=== PATIENT | female | born 1935 | race Caucasian/White ===

== ENCOUNTER 2016-12-22 20:27 | Inpatient (IN) | payer MEDICARE, OTHER ==
[~2016-12-22] VITALS: Ht 149.9 cm; Wt 71.9 kg
[2016-12-22] MEDS ORDERED: NS 1,000 ML IV SCH ×2 (20:42→22:45)
[2016-12-22] MEDS ORDERED: MAXZTA PO (20:42)
[2016-12-22] MEDS ORDERED: LEVO88TA3 PO (20:42)
[2016-12-22 20:58] LABS: BASO % 0.7 % (0.0-1.0); EOS # 0.3 K/mm3 (0.0-0.50); EOS % 6.5 % (0.0-3.0); LARGE UNSTAINED CELL # 0.1 K/mm3 (0.0-0.4); LARGE UNSTAINED CELL % 2.5 % (0.0-4.0); LYMPH # 1.4 K/mm3 (1.5-4.5); LYMPH % 28.8 % (24.0-44.0); MEAN CORPUSCULAR HEMOGLOBIN 29.3 pg (27.0-33.0); MEAN CORPUSCULAR HGB CONC 30.9 g/dl (32.0-36.5); MEAN CORPUSCULAR VOLUME 94.9 fl (80.0-96.0); MONO # 0.5 K/mm3 (0.0-0.8); MONO % 10.3 % (0.0-5.0); NEUTROPHILS # 2.3 K/mm3 (1.8-7.7); NEUTROPHILS % 51.3 % (36.0-66.0); PLATELET COUNT, AUTOMATED 213 k/mm3 (150-450); RED CELL DISTRIBUTION WIDTH 13.3 % (11.5-14.5); WHITE BLOOD COUNT 4.6 K/mm3 (4.0-10.0)
[2016-12-22 21:14] LABS: INR 1.03
[2016-12-22 21:18] LABS: ALBUMIN 3.6 GM/DL (3.2-5.2); ALBUMIN/GLOBULIN RATIO 1.29 (1.00-1.93); ALKALINE PHOSPHATASE 82 U/L (45-117); ALT/SGPT 17 U/L (12-78); ANION GAP 10 MEQ/L (8-16); AST/SGOT 15 U/L (15-37); BILIRUBIN,DIRECT 0.1 MG/DL (0.0-0.2); BILIRUBIN,TOTAL 0.5 MG/DL (0.2-1.0); BLOOD UREA NITROGEN 47 MG/DL (7-18); CALCIUM LEVEL 7.9 MG/DL (8.8-10.2); CARBON DIOXIDE LEVEL 21 MEQ/L (21-32); CHLORIDE LEVEL 113 MEQ/L (98-107); CREATININE FOR GFR 1.68 MG/DL (0.55-1.02); GLOMERULAR FILTRATION RATE 31.1 (>32); GLUCOSE, FASTING 103 MG/DL (83-110); POTASSIUM SERUM 5.1 MEQ/L (3.5-5.1); SODIUM LEVEL 144 MEQ/L (136-145); TOTAL PROTEIN 6.4 GM/DL (6.4-8.2)
--- NOTE | 2016-12-22 21:50 | REPUSA ---
CLINICAL HISTORY: AMS TECHNIQUE: Multiple axial CT images were obtained through the brain without IV contrast material. COMMENTS: Note is made of a 3.5 x 2.6 cm right frontal intraparenchymal hemorrhage with surrounding area of vas ogenic edema. There is extension of blood into adjacent subarachnoid space. There is minimal 1-2 mm m idline shift to the left. There is normal configuration of sella turcica. No hydrocephalus is present. The ventricles are joann sly symmetrical. No abnormal calcifications are present. There is diffuse age-appropriate cerebellar and cerebral atrophy with proportionally dilated ventricl es and cortical sulci. There are bilateral periventricular and subcortical white matter hypolucencies compatible with mild c hronic microvascular disease. IMPRESSION: 1. Age-appropriate cerebellar and cerebral atrophy. 2. Mild chronic microvascular disease. 3. 3.5 x 2.6 cm right frontal intraparenchymal hemorrhage with surrounding area of vasogenic edema. T here is extension of blood into adjacent subarachnoid space. There is minimal 1-2 mm midline shift to the left. Discussed with ER - CERTIFIED NOVELL ENGINEER at 935pm EST. Thank you for your kind referral of this patient.
[2016-12-22] MEDS ORDERED: LABETALOL HCL 100 MG/20 ML VIAL IV STA (22:11)
[2016-12-22] MEDS ORDERED: levETIRAcetam INJection 500 MG in D5W MINI-BAG PLUS 100 ML IV ONE ×2 (22:45→23:00)
[2016-12-22 23:00] VITALS: BP 175/69
[2016-12-22] MEDS ORDERED: ACETAMINOPHEN TAB 650MG DOSE (2X325MG) PO SCH (23:00)
[2016-12-22 23:30] VITALS: BP_SYST 152; BP_SYST 172; BP_DIAS 56; BP_DIAS 71
[2016-12-22 23:40] LABS: MAGNESIUM LEVEL 2.3 MG/DL (1.8-2.4); PHOSPHORUS LEVEL 3.3 MG/DL (2.5-4.9)
[2016-12-22] MEDS ORDERED: hydrALAZINE INJ 20 MG/ML VIAL IV ONE (23:45)
[2016-12-23] VITALS (27 sets, daily range): BP systolic 102–178; BP diastolic 36–71
[2016-12-23] MEDS ORDERED: DEXTROSE 50% 50 ML SYRINGE IV PRN
[2016-12-23] MEDS ORDERED: GLUCOSE 4 GM CHEW TABLET PO PRN
[2016-12-23] MEDS ORDERED: GLUCAGON FOR INJ 1 MG VIAL (J1610) SC PRN
[2016-12-23] MEDS: niCARdipine IV 40 MG in APPROPRIATE DILUENT 1 EA IV SCH ×4 (00:07→23:45)
[2016-12-23] MEDS ORDERED: CALCIUM GLUCONATE 1,000 MG in D5W MINI-BAG PLUS 100 ML IV ONE ×2 (01:00→09:45)
[2016-12-23] MEDS ORDERED: ACETAMINOPHEN 650 MG SUPP PR SCH (02:00)
[2016-12-23] MEDS ORDERED: ONDANSETRON 4MG/2ML VIAL (J2405) IV PRN (02:45)
[2016-12-23] MEDS: hydrALAZINE INJ 20 MG/ML VIAL IV SCH ×5 (04:00→19:28)
[2016-12-23] MEDS: ONDANSETRON 4MG/2ML VIAL (J2405) IV SCH ×3 (04:05→19:28)
[2016-12-23 04:24] LABS: MEAN CORPUSCULAR HEMOGLOBIN 31.6 pg (27.0-33.0); MEAN CORPUSCULAR HGB CONC 33.9 g/dl (32.0-36.5); MEAN CORPUSCULAR VOLUME 93.2 fl (80.0-96.0); RED CELL DISTRIBUTION WIDTH 13.2 % (11.5-14.5); WHITE BLOOD COUNT 5.6 K/mm3 (4.0-10.0)
[2016-12-23 04:34] LABS: ALBUMIN 3.1 GM/DL (3.2-5.2); ALBUMIN/GLOBULIN RATIO 1.11 (1.00-1.93); BILIRUBIN,TOTAL 0.4 MG/DL (0.2-1.0); CALCIUM LEVEL 8.2 MG/DL (8.8-10.2); CREATININE FOR GFR 1.5 MG/DL (0.55-1.02); GLOMERULAR FILTRATION RATE 35.5 (>32); POTASSIUM SERUM 4.8 MEQ/L (3.5-5.1); TOTAL PROTEIN 5.9 GM/DL (6.4-8.2)
[2016-12-23] MEDS ORDERED: ISOVUE-370 76% 100ML VIAL (Q9967) As Ordered ONE (04:50)
[2016-12-23] MEDS: ACETAMINOPHEN 650 MG SUPP PR SCH ×5 (05:00→19:28)
[2016-12-23] MEDS: HumaLOG INSULIN (NovoLOG) PER UNIT SC SCH ×4 (06:00→18:00)
--- NOTE | 2016-12-23 06:30 | REPUSA ---
Indication: Right frontal hematoma. Technique: Axial CT angiographic images of the head. Coronal and sagittal images. 3-D post processing . Findings: Comparison is made to prior exam on 12/22/2016. Normal bilateral petrous carotid arteries. Normal right cavernous carotid artery with a normal suprac linoid bifurcation. Normal left cavernous carotid artery with a normal supraclinoid bifurcation. Normal right A1 segments of the anterior cerebral artery. Normal left A1 segments of the anterior cer ebral artery. Normal intact anterior communicating artery (ACOM). Normal bilateral A2 segments of the anterior cerebral arteries. Normal right M1 and M2 segments of the middle cerebral arteries, with a normal M1 bifurcation. Normal left M1 and M2 segments of the middle cerebral arteries, with a normal M1 bifurcation. Normal right posterior communicating artery (PCOM). Normal left posterior communicating artery (PCOM) . Normal bilateral vertebral arteries. Normal basilar artery with a normal basilar bifurcation. The vis ualized bilateral superior cerebellar (SCA) arteries are normal. Normal bilateral P1, P2 and visualized P3 segments of the posterior cerebral arteries. There is no demonstrated aneurysm of the telida of [place]. There is no major vessel occlusion or hemo dynamically significant stenosis. Again is noted right frontal acute intraparenchymal hematoma. IMPRESSION: Normal MRA of the head. Right frontal acute hematoma. Unchanged mild midline shift to the left side.
--- NOTE | 2016-12-23 06:50 | REPUSA ---
CLINICAL HISTORY: Intracranial hemorrhage. TECHNIQUE: Multiple axial brain CT scan sections were obtained from base to vertex without contrast a dministration. COMMENTS: Comparison is made to the prior exam performed on 12/22/2016. There is no change in the size of the patient describes 3.5x2.6 cm right frontal intraparenchymal hem atoma with surrounding vasogenic edema. Unchanged extension of the blood into the adjacent subarachnoid space. Mild increase in the edema surrounding the hematoma and secondary mass effect on the adjacent right l ateral ventricle. Mild increase in midline shift of the left-sided measures 3.5 mm on the current exam. IMPRESSION: Unchanged right frontal acute hematoma. Increased surrounding edema. Increased mass effect. Increased midline shift to the left side. Thank you for your kind referral of this patient.
[2016-12-23] MEDS: CARISOPRODOL 350 MG TAB PO SCH (09:00)
--- NOTE | 2016-12-23 09:06 | CCN ---
DATE: 12/22/2016 Critical care time was 1 hour. This excludes all procedures. Onelia came in to the emergency room this evening after developing acute onset of facial droop, slurred speech and left arm weakness, had witnessed acute symptoms brought to the emergency room, was found to have an intracranial hemorrhage. Was evaluated by neurosurgery, felt that there is a possibility of aneurysm versus tumor as this was likely a spontaneous bleed. She is not on anticoagulation. She is awake and can talk. She has delayed speech, but can answer yes or no to most questions. She states that she has a history of renal impairment and has been told not to take any nonsteroidals. She has a history of high blood pressure, lower extremity edema and hypothyroidism. I am not able to ascertain who her primary care is. She is a lifetime nonsmoker without any cardiac disease that she is aware of. Her arrival blood pressure is critically high, initially at 190. With a dose of 20 of labetalol in the emergency room (ER), her blood pressure was 118 and her pulse was in the 50s. On arrival to the intensive care unit (ICU) when I first met her, her blood pressure is now high 160s low 170s and heart rate remains low in the 60 range. I have therefore elected to start nicardipine and I placed an arterial line at bedside. The patient states initially she had a headache. She has no headache currently. There was no witnessed seizure activity. PHYSICAL EXAMINATION: Temperature is 97.3, pulse of 60, respiratory rate is 18. Oxygen saturation is 96% on room air. Most recent blood pressure is 172/89. The left radial arterial line correlates well with the blood pressure on the monitor. General: Awake, alert, answers slowly, but is able to answer questions. HEENT: Pupils are 3 mm bilaterally, but reactive. Sclerae are clear. Mucous membranes are moist. She has a left facial droop. Neck is supple. No tracheal deviation or mass. Lymphatics: No cervical, supraclavicular axillary adenopathy. Cardiac: Regular S1, S2. There is occasional sinus arrhythmia. No elevated JVP. No peripheral edema. Pulmonary: Clear to auscultation. No rales, rhonchi or wheezes. No dullness to percussion. Abdomen: Soft, nontender, nondistended. No hepatosplenomegaly, masses or hernia. Extremities: She is unable to move her left arm, it is contracted to her side. She is able to move her left toes. Right leg, right arm has normal movement. She has a left facial droop. No evidence of tremor. Significant myoclonus. Musculoskeletal: Muscle tone is normal for stated age. No evidence of fracture or joint effusion. Skin: No rash, jaundice or bruising. LABORATORY EVALUATION: Shows sodium 144, potassium 5.1, chloride 113, bicarbonate of 21, BUN of 47, creatinine 1.68. White blood cell count is 4.6 with a hemoglobin of 10.8, hematocrit of 35.0, platelet count of 213, white blood cell count is 4.6. Fasting blood glucose is 103, total bilirubin is 0.5, normal LFTs. Calcium is minimally reduced at 7.9. Phosphorus and magnesium are normal. TSH is 1.48. Chest x-ray shows no evidence of infiltrate. No evidence of rib fracture or pneumothorax. CT head shows a 3.5 x 2.6 cm right frontal intraparenchymal hemorrhage, very round. There is some vasogenic edema, very minimal midline shift 1-2 mm. IMPRESSION: 1. Severe hypertension in the face of intracranial intraparenchymal hemorrhage. Tumor versus aneurysm remain in the differential. CT angiogram to be performed in the morning. There is a risk of progression. She will be monitored closely in the intensive care unit with neurologic checks. I have placed her nicardipine drip with as needed hydralazine. Goal of blood pressure of 140-150. 2. Renal insufficiency. I presume this is at baseline; however, I do not have prior records. Will monitor for adequate urine output. 3. Anemia, normocytic in nature. Will continue to monitor. 4. Deep venous thrombosis (DVT) prophylaxis with thromboembolism deterrent stockings (TEDS) and [place]. 5. Gastrointestinal (GI) prophylaxis with Protonix. 6. Seizure prophylaxis with Keppra. 7. Hypothyroidism. Replace levothyroxine intravenously (IV) as she is nothing by mouth currently because of the intracranial hemorrhage. 8. Will attempt normal glycemia. Will check fingersticks blood glucose every eight. Upon review of her records, she has very little records here, but she did show up to a clinic after recent amoxicillin and having a rash, therefore I placed this as a potential allergen in her medical history. As of this moment, the patient remains FULL CODE. She does have a 35-52% risk of mortality given her underlying diagnosis. Prognosis remains very guarded, especially if the hemorrhage progresses.
--- NOTE | 2016-12-23 09:06 | RO ---
DATE OF PROCEDURE: 12/22/2016 PREOPERATIVE DIAGNOSIS: Severe hypertension in the face of an intracranial hemorrhage. POSTOPERATIVE DIAGNOSIS: Severe hypertension in the face of an intracranial hemorrhage. PROCEDURE: Left radial arterial line. SURGEON: Dr. Reyes Torres FOLD SKIVER: None ANESTHESIA: 5 mL of 1% lidocaine without epinephrine. The procedure was deemed part of the patient's intensive care unit (ICU) care and urgent. The patient gave verbal consent at bedside. A time-out was performed with two patient identifiers, identifying correct site and correct procedure. Patricio's test was performed ensuring adequate blood flow. The left radial artery was then cleaned with chlorhexidine. A sterile drape was then placed over the site. 1% lidocaine was then instilled subcutaneously. The Arrow needle was then placed into the artery with return of pulsatile blood flow nearly immediately. The wire was advanced through the needle, the catheter was fed over the wire and the needle was removed. There were no observed complications. The arterial line was attached to the monitor with good wave form and good dicrotic notch. This was sutured in place and a sterile impregnated dressing was placed over the site. CHELITA
--- NOTE | 2016-12-23 09:06 | REP ---
Clinical: chest pain. Altered mental status. Comparison: none. Findings: The mediastinum and cardiac silhouette are stable and within normal limits for portable technique. The lung bosch are clear without acute consolidation, effusion, or pneumothorax. Skeletal structures are intact. Impression: No acute cardiopulmonary process appreciated. Signed by Tariq Arreola MD 12/23/2016 08:01 A
--- NOTE | 2016-12-23 10:21 | ECGEPIP ---
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
[2016-12-23] MEDS: LEVOTHYROXINE 100 MCG (0.1MG) VIAL IV SCH (10:33)
[2016-12-23] MEDS: PANTOPRAZOLE 40MG INJ (PROTONIX) (C9113) IV SCH (10:36)
[2016-12-23] MEDS: levETIRAcetam INJection 500 MG in D5W MINI-BAG PLUS 100 ML IV SCH (13:08)
[2016-12-24] VITALS (24 sets, daily range): BP systolic 107–168; BP diastolic 51–72
[2016-12-24] MEDS: levETIRAcetam INJection 500 MG in D5W MINI-BAG PLUS 100 ML IV SCH ×3 (00:04→23:53)
[2016-12-24] MEDS: ACETAMINOPHEN 650 MG SUPP PR SCH ×6 (00:06→19:25)
[2016-12-24] MEDS: MORPHINE 2 MG/ML 1ML SYRINGE IV PRN ×2 (02:25→20:25)
[2016-12-24] MEDS: hydrALAZINE INJ 20 MG/ML VIAL IV SCH ×7 (04:00→23:53)
[2016-12-24] MEDS: ONDANSETRON 4MG/2ML VIAL (J2405) IV SCH ×3 (04:01→19:24)
[2016-12-24 04:32] LABS: MEAN CORPUSCULAR HEMOGLOBIN 30.2 pg (27.0-33.0); MEAN CORPUSCULAR HGB CONC 31.7 g/dl (32.0-36.5); MEAN CORPUSCULAR VOLUME 95.3 fl (80.0-96.0); RED CELL DISTRIBUTION WIDTH 13.4 % (11.5-14.5)
[2016-12-24 04:51] LABS: ALBUMIN/GLOBULIN RATIO 1.07 (1.00-1.93); BILIRUBIN,TOTAL 0.8 MG/DL (0.2-1.0); CALCIUM LEVEL 8.8 MG/DL (8.8-10.2); CREATININE FOR GFR 1.43 MG/DL (0.55-1.02); GLOMERULAR FILTRATION RATE 37.5 (>32); POTASSIUM SERUM 4.8 MEQ/L (3.5-5.1); TOTAL PROTEIN 5.8 GM/DL (6.4-8.2)
[2016-12-24] MEDS: HumaLOG INSULIN (NovoLOG) PER UNIT SC SCH ×5 (05:48→23:54)
[2016-12-24] MEDS: niCARdipine IV 40 MG in APPROPRIATE DILUENT 1 EA IV SCH (07:45)
[2016-12-24] MEDS: PANTOPRAZOLE 40MG INJ (PROTONIX) (C9113) IV SCH (08:21)
[2016-12-24] MEDS: LEVOTHYROXINE 100 MCG (0.1MG) VIAL IV SCH (08:21)
[2016-12-24] MEDS: CARISOPRODOL 350 MG TAB PO SCH (08:45)
[2016-12-24] MEDS: ACETAMINOPHEN TAB 650MG DOSE (2X325MG) PO SCH (23:55)
[2016-12-25] VITALS (23 sets, daily range): BP systolic 98–157; BP diastolic 47–70
[2016-12-25] MEDS: hydrALAZINE INJ 20 MG/ML VIAL IV SCH ×6 (04:00→23:35)
[2016-12-25] MEDS: ACETAMINOPHEN TAB 650MG DOSE (2X325MG) PO SCH ×6 (04:06→23:33)
[2016-12-25] MEDS: ONDANSETRON 4MG/2ML VIAL (J2405) IV SCH ×3 (04:06→19:51)
[2016-12-25 05:00] LABS: MEAN CORPUSCULAR HEMOGLOBIN 31.4 pg (27.0-33.0); MEAN CORPUSCULAR HGB CONC 33.1 g/dl (32.0-36.5); MEAN CORPUSCULAR VOLUME 94.8 fl (80.0-96.0); RED CELL DISTRIBUTION WIDTH 13.2 % (11.5-14.5); WHITE BLOOD COUNT 5.9 K/mm3 (4.0-10.0)
[2016-12-25 05:47] LABS: ALBUMIN/GLOBULIN RATIO 0.97 (1.00-1.93); BILIRUBIN,TOTAL 0.7 MG/DL (0.2-1.0); CALCIUM LEVEL 8.4 MG/DL (8.8-10.2); CREATININE FOR GFR 1.56 MG/DL (0.55-1.02); GLOMERULAR FILTRATION RATE 33.9 (>32); POTASSIUM SERUM 4.5 MEQ/L (3.5-5.1); TOTAL PROTEIN 6.1 GM/DL (6.4-8.2)
[2016-12-25] MEDS: HumaLOG INSULIN (NovoLOG) PER UNIT SC SCH ×4 (05:56→23:34)
[2016-12-25] MEDS: LEVOTHYROXINE 88MCG TABLET (0.088 MG) PO SCH (05:57)
[2016-12-25] MEDS ORDERED: LEVOTHYROXINE 75MCG TABLET (0.075MG) PO SCH (06:00)
[2016-12-25 09:34] LABS: RETIC HEMOGLOBIN CONTENT CHr 29.5 PG (24-36); RETICULOCYTE % 1.7 % (0.5-1.5)
[2016-12-25 09:47] LABS: PERCENT SATURATION 11.2 % (13.2-45.0)
[2016-12-25] MEDS: PANTOPRAZOLE 40MG INJ (PROTONIX) (C9113) IV SCH (09:56)
[2016-12-25] MEDS: CARISOPRODOL 350 MG TAB PO SCH (10:29)
[2016-12-25] MEDS ORDERED: traMADol 50 MG TAB PO PRN ×2 (10:30)
[2016-12-25] MEDS: levETIRAcetam INJection 500 MG in D5W MINI-BAG PLUS 100 ML IV SCH ×2 (12:18→23:36)
--- NOTE | 2016-12-25 12:37 | IPNPDOC ---
Date Seen The patient was seen on 12/25/16. Progress Note In brief: This is an 81-year-old female who presented with left upper extremity weakness slurred speech found to have intracranial hemorrhage has been of neurosurgery service followed by intensive care will now be followed by the hospitalist service with consult SUBJECTIVE: Complains of weakness difficulty with opening her eyes which is not new. As well as persistent continued headache. She tells me that she is able to wiggle her toes and move her left lower extremity better than previous days she is not able to move her left upper extremity. OBJECTIVE PHYSICAL EXAMINATION: VITAL SIGNS: Please see below. GENERAL: Frail elderly female sitting up in bed she has dry mucous membranes she speaks slowly and answers questions appropriately HEENT: Pupils are closely pinpoint bilaterally and minimally reactive she speaks slowly CARDIOVASCULAR: S1-S2. RESPIRATORY: Clear. ABDOMINAL: Bowel sounds present abdomen soft EXTREMITIES: Process of left upper extremity spontaneously moves right upper extremity right lower extremity as well as left lower extremity to painful stimuli. No edema NEUROLOGICAL: No change from previously days documented exams LABORATORY DATA: Please see below. MICROBIOLOGY: Please see below. IMAGING: CT angiography of the head from 917:Normal MRA of the head. Right frontal acute hematoma. Unchanged mild midline shift to the left side CT head from 917:Unchanged right frontal acute hematoma. Increased surrounding edema. Increased mass effect. Increased midline shift to the left side. Thank you for your kind referral of this patient. Echocardiogram: Ordered. 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 PROBLEMS: 1. Hemorrhagic CVA:. He related to severe hypertension, at this time I have spoken with neurosurgery R goal systolic blood pressure is less than 150 she is currently on metoprolol and when necessary hydralazine to achieve these goals I spoke with nursing staff this morning regarding this as well. Today is day 3 of 54 bed rest as per neurosurgery. We'll check an echocardiogram carotid duplex TSH hemoglobin A1c and continue to monitor on telemetry. Pain control and management of intracranial hemorrhage as per neurosurgery. The patient is on seizure prophylaxis. The patient did have a swallow eval yesterday and she was cleared for pured however nursing staff and the neurosurgery of concerns regarding this and as such an NG tube was placed. We'll place nutritional consult for tube feed recommendations would reattempt a swallow eval 48 hours and should the patient be unable to tolerate at that point family and patient would have to consider potential PEG tube placement. 2. Chronic kidney disease: Is stable and at baseline continue to monitor. 3. Anemia: Stable we'll check iron studies and anemia workup 4. Hypothyroidism: Continue with Synthroid 3. Stress ulcer prophylaxis: IV Protonix. 5. Hypertension: Patient is normally on triamterene and hydrochlorothiazide combination pill and is currently on hold instead she is on a beta jm and hydralazine when necessary DISPOSITION: I suspect the patient will require long-term placement. VS, I&O, 24H, Fishbone Vital Signs/I&O Vital Signs Date Time Temp Pulse Resp B/P (MAP) Pulse Ox O2 Delivery O2 Flow Rate FiO2 12/25/16 11:00 74 18 156/67 (96) 95 Room Air 12/25/16 10:00 99.0 I&O- Last 24 Hours up to 6 AM 12/25/16 06:00 Intake Total 255 ml Output Total 725 ml Balance -470 ml Laboratory Data 24H LABS Laboratory Tests 2 12/24/16 17:30: Bedside Glucose (Misc Panel) 90 12/24/16 23:34: Bedside Glucose (Misc Panel) 95 12/25/16 04:52: Absolute Reticulocyte Count 59, Percent Reticulocyte Count 1.70H, Reticulocyte Hgb Content (CHr) 29.5, Anion Gap 9, Glomerular Filtration Rate 33.9, Estimated Mean Plasma Glucose 111H, Hemoglobin A1c 5.5, Blood Urea Nitrogen 36H, Creatinine 1.56H, Sodium Level 146H, Potassium Level 4.5, Chloride Level 115H, Carbon Dioxide Level 22, Calcium Level 8.4L, Aspartate Amino Transf (AST/SGOT) 13L, Alanine Aminotransferase (ALT/SGPT) 17, Alkaline Phosphatase 69, Total Bilirubin 0.7, Total Protein 6.1L, Albumin 3.0L, Iron Level 29L, Total Iron Binding Capacity 260, Transferrin % Saturation 11.2L, Ferritin 237, Albumin/ Globulin Ratio 0.97L CBC/BMP Laboratory Tests 12/25/16 04:52 Red Blood Count 3.32 L, Mean Corpuscular Volume 94.8, Mean Corpuscular Hemoglobin 31.4, Mean Corpuscular Hemoglobin Concent 33.1, Red Cell Distribution Width 13.2, Calcium Level 8.4 L, Aspartate Amino Transf (AST/SGOT) 13 L, Alanine Aminotransferase (ALT/SGPT) 17, Alkaline Phosphatase 69, Total Bilirubin 0.7, Total Protein 6.1 L, Albumin 3.0 L Microbiology Microbiology 12/23/16 Urine Culture - Final, Complete JARON MEDRANO MD Dec 25, 2016 12:37
[2016-12-26] VITALS (26 sets, daily range): BP systolic 112–173; BP diastolic 50–98
--- NOTE | 2016-12-26 00:39 | REP ---
Follow-up CT of the brain without IV contrast: Comparisons are 12/22/2078 12/23/2016. The right frontal lobe hematoma is again identified today measuring 3.6 x 2.6 cm, not significantly changed. There is edema surrounding the hematoma as previously. Small volume of hemorrhage is again noted in the subarachnoid space adjacent to the hematoma, unchanged. There is effacement of the right lateral ventricle and there is right to left midline shift of approximately 3.88 mm. This has increased from the 1-2 mm previously. The ventricles are otherwise normal size. No other hemorrhages are identified. There are no other interval changes Signed by Chris Huggins MD 12/25/2016 05:07 P
[2016-12-26] MEDS: ONDANSETRON 4MG/2ML VIAL (J2405) IV SCH ×3 (03:48→19:39)
[2016-12-26] MEDS: hydrALAZINE INJ 20 MG/ML VIAL IV SCH ×5 (03:48→19:41)
[2016-12-26] MEDS: ACETAMINOPHEN TAB 650MG DOSE (2X325MG) PO SCH ×5 (03:48→19:41)
[2016-12-26 05:13] LABS: MEAN CORPUSCULAR HEMOGLOBIN 31.2 pg (27.0-33.0); MEAN CORPUSCULAR VOLUME 94.5 fl (80.0-96.0); RED CELL DISTRIBUTION WIDTH 13.2 % (11.5-14.5); WHITE BLOOD COUNT 6.9 K/mm3 (4.0-10.0)
[2016-12-26 05:27] LABS: ALBUMIN 2.8 GM/DL (3.2-5.2); ALBUMIN/GLOBULIN RATIO 0.9 (1.00-1.93); BILIRUBIN,TOTAL 0.4 MG/DL (0.2-1.0); CALCIUM LEVEL 7.8 MG/DL (8.8-10.2); CREATININE FOR GFR 1.76 MG/DL (0.55-1.02); GLOMERULAR FILTRATION RATE 29.5 (>32); POTASSIUM SERUM 4.4 MEQ/L (3.5-5.1); TOTAL PROTEIN 5.9 GM/DL (6.4-8.2)
[2016-12-26] MEDS: LEVOTHYROXINE 88MCG TABLET (0.088 MG) PO SCH (06:01)
[2016-12-26] MEDS: HumaLOG INSULIN (NovoLOG) PER UNIT SC SCH ×2 (06:02→12:19)
[2016-12-26] MEDS: PANTOPRAZOLE 40MG INJ (PROTONIX) (C9113) IV SCH (08:27)
[2016-12-26] MEDS: CARISOPRODOL 350 MG TAB PO SCH (09:00)
--- NOTE | 2016-12-26 12:07 | IPNPDOC ---
Date Seen The patient was seen on 12/26/16. Progress Note Yesterday afternoon the patient became more lethargic and was unable to eat and neurosurgery placed tube for feeding. Given the decline, status post I did have concern ordered a stat CT scan of the head which revealed some worsening of midline shift. NSGY did see the patient at that time and consent for possible surgery SUBJECTIVE: The patient is lethargic but arousable to verbal and painful stimuli she answers questions but not as much as she did in previous days she knows the year she knows the president but she does not know where she is she believes she is at home. She denies any complaints of pain at this time OBJECTIVE PHYSICAL EXAMINATION: VITAL SIGNS: Please see below. GENERAL: Frail elderly female sitting up in bed she has dry mucous membranes she speaks very little compared to previous day HEENT: Pupils are close to pinpoint bilaterally and minimally reactive to light , she has an NG tube in place CARDIOVASCULAR: S1-S2. RESPIRATORY: Clear. ABDOMINAL: Bowel sounds present abdomen soft EXTREMITIES: Process of left upper extremity spontaneously moves right upper extremity right lower extremity as well as left lower extremity to painful stimuli. No edema NEUROLOGICAL: No change from previously days documented exams LABORATORY DATA: Please see below. MICROBIOLOGY: Please see below. IMAGING: CT scan of the head from 12/25: The right frontal lobe hematoma is again identified today measuring 3.6 x 2.6 cm, not significantly changed. There is edema surrounding the hematoma as previously. Small volume of hemorrhage is again noted in the subarachnoid space adjacent to the hematoma, unchanged. There is effacement of the right lateral ventricle and there is right to left midline shift of approximately 3.88 mm. This has increased from the 1-[address] angiography of the head from :Normal MRA of the head. Right frontal acute hematoma. Unchanged mild midline shift to the left side CT head from :Unchanged right frontal acute hematoma. Increased surrounding edema. Increased mass effect. Increased midline shift to the left side. Thank you for your kind referral of this patient. Echocardiogram: Ordered. 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 PROBLEMS: 1. Hemorrhagic CVA: Believed to be related to severe hypertension, goal systolic blood pressure is less than 150 she is currently on metoprolol and when necessary hydralazine to achieve these goals I spoke with nursing staff this morning regarding this as well. Today is day 4 of 5 bed rest as per neurosurgery. We'll check an echocardiogram, carotid duplex and continue to monitor on telemetry. Pain control and management of intracranial hemorrhage as per neurosurgery. The patient is on seizure prophylaxis. I did discuss with neurosurgery they do not feel that Decadron would play any role in improving her cerebral edema in the setting of acute bleed The patient did have a swallow eval and she was cleared for pured however nursing staff and the neurosurgery of concerns regarding this and as such an NG tube was placed. We will monitor closely today should she really tolerated it would recommend discontinuing allowing her to eat should she improve 2. Chronic kidney disease: Is stable and at baseline continue to monitor. 3. Anemia: Stable we'll check iron studies and anemia workup possibly some iron deficiency anemia when she is taking better by mouth we'll start supplementation 4. Hypothyroidism: Continue with Synthroid 3. Stress ulcer prophylaxis: IV Protonix. 5. Hypertension: Patient is normally on triamterene and hydrochlorothiazide combination pill and is currently on hold instead she is on a beta jm and hydralazine when necessary DISPOSITION: I suspect the patient will require at least subacute rehabilitation VS, I&O, [facility] Vital Signs/I&O Vital Signs Date Time Temp Pulse Resp B/P (MAP) Pulse Ox O2 Delivery O2 Flow Rate FiO2 12/26/16 10:00 64 16 127/58 (81) 94 Room Air 12/26/16 08:00 98.1 I&O- Last 24 Hours up to 6 AM 12/27/16 06:00 Intake Total 430 ml Output Total 125 ml Balance 305 ml Laboratory Data 24H LABS Laboratory Tests 2 12/25/16 12:10: Bedside Glucose (Misc Panel) 102 12/25/16 17:58: Bedside Glucose (Misc Panel) 160H 12/25/16 23:18: Bedside Glucose (Misc Panel) 164H 12/26/16 04:56: Anion Gap 8, Glomerular Filtration Rate 29.5L, Blood Urea Nitrogen 52H, Creatinine 1.76H, Sodium Level 143, Potassium Level 4.4, Chloride Level 111H, Carbon Dioxide Level 24, Calcium Level 7.8L, Aspartate Amino Transf (AST/SGOT) 18, Alanine Aminotransferase (ALT/SGPT) 18, Alkaline Phosphatase 68, Total Bilirubin 0.4, Total Protein 5.9L, Albumin 2.8L, Albumin/Globulin Ratio 0.90L 12/26/16 05:50: Bedside Glucose (Misc Panel) 171H CBC/BMP Laboratory Tests 12/26/16 04:56 Red Blood Count 3.26 L, Mean Corpuscular Volume 94.5, Mean Corpuscular Hemoglobin 31.2, Mean Corpuscular Hemoglobin Concent 33.0, Red Cell Distribution Width 13.2, Calcium Level 7.8 L, Aspartate Amino Transf (AST/SGOT) 18, Alanine Aminotransferase (ALT/SGPT) 18, Alkaline Phosphatase 68, Total Bilirubin 0.4, Total Protein 5.9 L, Albumin 2.8 L Microbiology Microbiology 12/23/16 Urine Culture - Final, Complete JARON MEDRANO MD Dec 26, 2016 12:07
[2016-12-26] MEDS: levETIRAcetam INJection 500 MG in D5W MINI-BAG PLUS 100 ML IV SCH (12:20)
[2016-12-26] MEDS: DOCUSATE SODIUM 100 MG CAP PO SCH (20:37)
--- NOTE | 2016-12-26 21:24 | ECHO ---
DATE OF PROCEDURE: 12/26/2016 REFERRING PHYSICIAN: Indiana Amin MD INDICATION: Acute stroke. HEIGHT: 59 inches WEIGHT: 157 pounds. 2D MEASUREMENTS: Aortic root: 2.8 cm Proximal ascending aorta: 2.5 cm Left atrium: 3.5 cm Ventricular septum: 1.18 cm Posterior wall: 1.13 cm Left ventricle diastole: 4.0 cm Inferior vena cava: 2.0 cm DOPPLER MEASUREMENTS: Aortic valve velocity: 209 cm/s LVOT velocity: 195 cm/s LVOT VTI: 36.3 cm Mitral E velocity: 130 cm/s Mitral A velocity: 145 cm/s Mitral deceleration time: 239 ms Mild tricuspid regurgitation. Estimated right ventricle systolic pressure 51 mmHg assuming a right atrial pressure of 10 mmHg. Pulmonary artery systolic pressure 47 mmHg by pulmonary acceleration time method. MITRAL ANNULAR TISSUE DOPPLER: E prime lateral: 9.5 cm/s E prime septal: 6.0 cm/s DESCRIPTION: Rhythm was sinus. This is a moderately technically difficult echocardiogram. No pericardial effusion. This is a 2D, M-mode, color flow Doppler and pulse wave Doppler examination that included mitral annular tissue Doppler. CONCLUSIONS: 1. No definite cardiac source of systemic embolism identified. 2. Normal left ventricle internal dimensions and wall thickness. No regional LV wall motion abnormalities. Hyperdynamic left ventricle (LV) systolic function. Left ventricular ejection fraction (LVEF) of 75% by visual estimate. Normal LV diastolic function for age. 3. Suggestive of moderate elevation of estimated right ventricle systolic pressure and pulmonary artery systolic pressure. Mild tricuspid regurgitation. 4. Moderately technically difficult echocardiogram. [facility]
[2016-12-27] VITALS (24 sets, daily range): BP systolic 98–152; BP diastolic 56–96
[2016-12-27] MEDS: levETIRAcetam INJection 500 MG in D5W MINI-BAG PLUS 100 ML IV SCH ×3 (00:02→23:33)
[2016-12-27] MEDS: ACETAMINOPHEN TAB 650MG DOSE (2X325MG) PO SCH ×7 (00:03→23:33)
[2016-12-27] MEDS: hydrALAZINE INJ 20 MG/ML VIAL IV SCH ×7 (04:00→23:33)
[2016-12-27 05:00] LABS: MEAN CORPUSCULAR HEMOGLOBIN 31.3 pg (27.0-33.0); MEAN CORPUSCULAR HGB CONC 33.1 g/dl (32.0-36.5); MEAN CORPUSCULAR VOLUME 94.5 fl (80.0-96.0); RED CELL DISTRIBUTION WIDTH 13.1 % (11.5-14.5)
[2016-12-27] MEDS: ONDANSETRON 4MG/2ML VIAL (J2405) IV SCH ×3 (05:01→19:35)
[2016-12-27] MEDS: LEVOTHYROXINE 88MCG TABLET (0.088 MG) PO SCH (05:01)
[2016-12-27 05:33] LABS: ALBUMIN 2.7 GM/DL (3.2-5.2); ALBUMIN/GLOBULIN RATIO 0.87 (1.00-1.93); BILIRUBIN,TOTAL 0.6 MG/DL (0.2-1.0); CALCIUM LEVEL 8.7 MG/DL (8.8-10.2); CREATININE FOR GFR 1.5 MG/DL (0.55-1.02); GLOMERULAR FILTRATION RATE 35.5 (>32); POTASSIUM SERUM 4.5 MEQ/L (3.5-5.1); TOTAL PROTEIN 5.8 GM/DL (6.4-8.2)
[2016-12-27] MEDS: DOCUSATE SODIUM 100 MG CAP PO SCH ×2 (09:00→21:23)
[2016-12-27] MEDS: CARISOPRODOL 350 MG TAB PO SCH (09:00)
[2016-12-27] MEDS: PANTOPRAZOLE 40MG INJ (PROTONIX) (C9113) IV SCH (09:14)
--- NOTE | 2016-12-27 12:45 | IPNPDOC ---
Date Seen The patient was seen on 12/27/16. Progress Note SUBJECTIVE: The patient is lethargic but easily arousable to verbal stimuli she answers questions and is able to open her eyes this AM. SHe is fully oreinted at this time. She denies any complaints of pain or headache at this time OBJECTIVE PHYSICAL EXAMINATION: VITAL SIGNS: Please see below. GENERAL: Frail elderly female sitting up in bed she has dry mucous membranes she speaks slowly with prominent Lt sided facial droop HEENT: Pupils are close to pinpoint bilaterally and minimally reactive to light , left-sided facial droop CARDIOVASCULAR: S1-S2. RESPIRATORY: Clear. ABDOMINAL: Bowel sounds present abdomen soft EXTREMITIES: Paralysis of left upper extremity spontaneously moves right upper extremity right lower extremity as well as left lower extremity to painful stimuli. No edema NEUROLOGICAL: No change from previously days documented exams LABORATORY DATA: Please see below. MICROBIOLOGY: Please see below. IMAGING: CT scan of the head from 12/25: The right frontal lobe hematoma is again identified today measuring 3.6 x 2.6 cm, not significantly changed. There is edema surrounding the hematoma as previously. Small volume of hemorrhage is again noted in the subarachnoid space adjacent to the hematoma, unchanged. There is effacement of the right lateral ventricle and there is right to left midline shift of approximately 3.88 mm. This has increased from the 1-[address] angiography of the head from :Normal MRA of the head. Right frontal acute hematoma. Unchanged mild midline shift to the left side CT head from :Unchanged right frontal acute hematoma. Increased surrounding edema. Increased mass effect. Increased midline shift to the left side. Thank you for your kind referral of this patient. Echocardiogram: 1. No definite cardiac source of systemic embolism identified. 2. Normal left ventricle internal dimensions and wall thickness. No regional LV wall motion abnormalities. Hyperdynamic left ventricle (LV) systolic function. Left ventricular ejection fraction (LVEF) of 75% by visual estimate. Normal LV diastolic function for age. 3. Suggestive of moderate elevation of estimated right ventricle systolic pressure and pulmonary artery systolic pressure. Mild tricuspid regurgitation. 4. Moderately technically difficult echocardiogram. 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 PROBLEMS: 1. 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 Today is day 5 of 5 bed rest as per neurosurgery. Pain control and management of intracranial hemorrhage as per neurosurgery. The patient is on seizure prophylaxis. Yesterday evening the patient's NG tube was removed her tube feeds have been stopped she appears to be tolerated. Diet quite well at this time and is showing signs of improvement. 2. Chronic kidney disease: Is stable and at baseline continue to monitor. 3. Anemia: Stable we'll check iron studies and anemia workup possibly some iron deficiency anemia when she is taking better by mouth we'll start supplementation 4. Hypothyroidism: Continue with Synthroid 3. Stress ulcer prophylaxis: IV Protonix. 5. Hypertension: Patient is normally on triamterene and hydrochlorothiazide combination pill and is currently on hold instead she is on a beta jm and hydralazine when necessary DISPOSITION: I suspect the patient will require at least subacute rehabilitation will have her work with physical therapy tomorrow potentially disposition to rehabilitation facility Saturday VS, I&O, 24H, [facility] Vital Signs/I&O Vital Signs Date Time Temp Pulse Resp B/P (MAP) Pulse Ox O2 Delivery O2 Flow Rate FiO2 12/27/16 12:00 144/67 12/27/16 10:00 73 18 97 12/27/16 08:00 98.2 12/27/16 06:00 Room Air 12/27/16 03:00 2.0 I&O- Last 24 Hours up to 6 AM 12/28/16 06:00 Intake Total 0 ml Output Total 60 ml Balance -60 ml Laboratory Data 24H LABS Laboratory Tests 2 12/27/16 04:51: Anion Gap 8, Glomerular Filtration Rate 35.5, Blood Urea Nitrogen 49H, Creatinine 1.50H, Sodium Level 145, Potassium Level 4.5, Chloride Level 112H, Carbon Dioxide Level 25, Calcium Level 8.7L, Aspartate Amino Transf (AST/SGOT) 14L, Alanine Aminotransferase (ALT/SGPT) 17, Alkaline Phosphatase 68, Total Bilirubin 0.6, Total Protein 5.8L, Albumin 2.7L, Albumin/Globulin Ratio 0.87L CBC/BMP Laboratory Tests 12/27/16 04:51 Red Blood Count 3.30 L, Mean Corpuscular Volume 94.5, Mean Corpuscular Hemoglobin 31.3, Mean Corpuscular Hemoglobin Concent 33.1, Red Cell Distribution Width 13.1, Calcium Level 8.7 L, Aspartate Amino Transf (AST/SGOT) 14 L, Alanine Aminotransferase (ALT/SGPT) 17, Alkaline Phosphatase 68, Total Bilirubin 0.6, Total Protein 5.8 L, Albumin 2.7 L Microbiology Microbiology 12/23/16 Urine Culture - Final, Complete JARON MEDRANO MD Dec 27, 2016 12:45
[2016-12-28] VITALS (24 sets, daily range): BP systolic 87–154; BP diastolic 41–67
[2016-12-28] MEDS: hydrALAZINE INJ 20 MG/ML VIAL IV SCH ×2 (04:00→09:15)
[2016-12-28] MEDS: ACETAMINOPHEN TAB 650MG DOSE (2X325MG) PO SCH ×5 (04:10→20:28)
[2016-12-28] MEDS: ONDANSETRON 4MG/2ML VIAL (J2405) IV SCH (04:10)
[2016-12-28 05:18] LABS: MEAN CORPUSCULAR VOLUME 93.9 fl (80.0-96.0); WHITE BLOOD COUNT 5.3 K/mm3 (4.0-10.0)
[2016-12-28 05:35] LABS: ALBUMIN 2.7 GM/DL (3.2-5.2); ALBUMIN/GLOBULIN RATIO 0.87 (1.00-1.93); BILIRUBIN,TOTAL 0.6 MG/DL (0.2-1.0); CALCIUM LEVEL 8.4 MG/DL (8.8-10.2); CREATININE FOR GFR 1.62 MG/DL (0.55-1.02); GLOMERULAR FILTRATION RATE 32.5 (>32); POTASSIUM SERUM 4.1 MEQ/L (3.5-5.1); TOTAL PROTEIN 5.8 GM/DL (6.4-8.2)
[2016-12-28] MEDS: LEVOTHYROXINE 88MCG TABLET (0.088 MG) PO SCH (05:55)
[2016-12-28] MEDS: PANTOPRAZOLE 40MG INJ (PROTONIX) (C9113) IV SCH (09:14)
[2016-12-28] MEDS: DOCUSATE SODIUM 100 MG CAP PO SCH ×2 (09:20→20:28)
[2016-12-28] MEDS ORDERED: CARISOPRODOL 350 MG TAB PO PRN (09:30)
[2016-12-28] MEDS ORDERED: ONDANSETRON 4MG/2ML VIAL (J2405) IV PRN (09:30)
[2016-12-28] MEDS: **hydrALAZINE** 10 MG TAB PO SCH ×2 (12:00→20:24)
--- NOTE | 2016-12-28 12:16 | IPNPDOC ---
Date Seen The patient was seen on 12/28/16. Progress Note SUBJECTIVE: The patient is awake and greets me is entered the room today. She is fully oriented at this time. She denies any complaints of pain or headache at this time. She tells me she feels well and wants to try getting out of bed. She tells me overnight she was able to feed herself with her right hand OBJECTIVE PHYSICAL EXAMINATION: VITAL SIGNS: Please see below. GENERAL: Frail elderly female sitting up in bed she has moist mucous membranes she speaks slowly with prominent Lt sided facial droop not new HEENT: Pupils are close to pinpoint bilaterally and minimally reactive to light , left-sided facial droop CARDIOVASCULAR: S1-S2. RESPIRATORY: Clear. ABDOMINAL: Bowel sounds present abdomen soft EXTREMITIES: Paralysis of left upper extremity spontaneously moves right upper extremity right lower extremity as well as left lower extremity to painful stimuli. No edema NEUROLOGICAL: No change from previously days documented exams LABORATORY DATA: Please see below. MICROBIOLOGY: Please see below. IMAGING: CT scan of the head from 12/25: The right frontal lobe hematoma is again identified today measuring 3.6 x 2.6 cm, not significantly changed. There is edema surrounding the hematoma as previously. Small volume of hemorrhage is again noted in the subarachnoid space adjacent to the hematoma, unchanged. There is effacement of the right lateral ventricle and there is right to left midline shift of approximately 3.88 mm. This has increased from the 1-[address] angiography of the head from :Normal MRA of the head. Right frontal acute hematoma. Unchanged mild midline shift to the left side CT head from :Unchanged right frontal acute hematoma. Increased surrounding edema. Increased mass effect. Increased midline shift to the left side. Thank you for your kind referral of this patient. Echocardiogram: 1. No definite cardiac source of systemic embolism identified. 2. Normal left ventricle internal dimensions and wall thickness. No regional LV wall motion abnormalities. Hyperdynamic left ventricle (LV) systolic function. Left ventricular ejection fraction (LVEF) of 75% by visual estimate. Normal LV diastolic function for age. 3. Suggestive of moderate elevation of estimated right ventricle systolic pressure and pulmonary artery systolic pressure. Mild tricuspid regurgitation. 4. Moderately technically difficult echocardiogram. 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 PROBLEMS: 1. Hemorrhagic CVA: Believed to be related to uncontrolled hypertension, goal systolic blood pressure is less than 150 she is currently on metoprolol I will restart her home hydrochlorothiazide at a lower dose and titrate up as needed. The patient has completed 5 days of bedrest as per neurosurgery, I did discuss the patient's case with them the patient is cleared for discharge from their perspective I have agreed to take over the patient's care as primary service. Neurosurgery advises the patient remain on seizure prophylaxis for 2 additional days continue with her blood pressure will and outpatient follow-up. Neurosurgery has cleared the patient to work with physical therapy per my discussions with them this morning. 2. Chronic kidney disease: Is stable and likely at baseline continue to monitor. 3. Anemia: Stable possibly some iron deficiency anemia when she is taking better by mouth we'll start some iron supplementation 4. Hypothyroidism: Continue with Synthroid 3. Stress ulcer prophylaxis: IV Protonix. 5. Hypertension: As outlined above DISPOSITION: I suspect the patient will require at least subacute rehabilitation will have her work with physical therapy and potentially disposition to rehabilitation facility Saturday VS, I&O, 24H, [facility] Vital Signs/I&O Vital Signs Date Time Temp Pulse Resp B/P (MAP) Pulse Ox O2 Delivery O2 Flow Rate FiO2 12/28/16 11:00 68 110/49 (69) 12/28/16 08:00 97.3 16 99 12/28/16 04:00 Room Air 12/27/16 03:00 2.0 Laboratory Data 24H LABS Laboratory Tests 2 12/28/16 04:46: Anion Gap 10, Glomerular Filtration Rate 32.5, Blood Urea Nitrogen 44H, Creatinine 1.62H, Sodium Level 146H, Potassium Level 4.1, Chloride Level 111H, Carbon Dioxide Level 25, Calcium Level 8.4L, Aspartate Amino Transf (AST/SGOT) 14L, Alanine Aminotransferase (ALT/SGPT) 17, Alkaline Phosphatase 63, Total Bilirubin 0.6, Total Protein 5.8L, Albumin 2.7L, Albumin/Globulin Ratio 0.87L CBC/BMP Laboratory Tests 12/28/16 04:46 Red Blood Count 3.18 L, Mean Corpuscular Volume 93.9, Mean Corpuscular Hemoglobin 31.0, Mean Corpuscular Hemoglobin Concent 33.0, Red Cell Distribution Width 13.0, Calcium Level 8.4 L, Aspartate Amino Transf (AST/SGOT) 14 L, Alanine Aminotransferase (ALT/SGPT) 17, Alkaline Phosphatase 63, Total Bilirubin 0.6, Total Protein 5.8 L, Albumin 2.7 L Microbiology Microbiology 12/23/16 Urine Culture - Final, Complete JARON MEDRANO MD Dec 28, 2016 12:16
[2016-12-28] MEDS: hydroCHLOROthiazide 25 MG TAB PO SCH (12:20)
[2016-12-28] MEDS: levETIRAcetam INJection 500 MG in D5W MINI-BAG PLUS 100 ML IV SCH (12:21)
[2016-12-29] VITALS (9 sets, daily range): BP systolic 117–152; BP diastolic 58–81
[2016-12-29] MEDS: levETIRAcetam INJection 500 MG in D5W MINI-BAG PLUS 100 ML IV SCH ×3 (00:44→23:54)
[2016-12-29] MEDS: ACETAMINOPHEN TAB 650MG DOSE (2X325MG) PO SCH ×7 (00:45→23:53)
[2016-12-29 05:33] LABS: MEAN CORPUSCULAR HEMOGLOBIN 30.9 pg (27.0-33.0); MEAN CORPUSCULAR HGB CONC 33.1 g/dl (32.0-36.5); MEAN CORPUSCULAR VOLUME 93.6 fl (80.0-96.0); WHITE BLOOD COUNT 5.6 K/mm3 (4.0-10.0)
[2016-12-29 05:58] LABS: ALBUMIN 2.6 GM/DL (3.2-5.2); ALBUMIN/GLOBULIN RATIO 0.84 (1.00-1.93); BILIRUBIN,TOTAL 0.6 MG/DL (0.2-1.0); CALCIUM LEVEL 8.2 MG/DL (8.8-10.2); CREATININE FOR GFR 1.5 MG/DL (0.55-1.02); GLOMERULAR FILTRATION RATE 35.5 (>32); POTASSIUM SERUM 4.3 MEQ/L (3.5-5.1); TOTAL PROTEIN 5.7 GM/DL (6.4-8.2)
[2016-12-29] MEDS: **hydrALAZINE** 10 MG TAB PO SCH ×5 (06:00→23:50)
[2016-12-29] MEDS: LEVOTHYROXINE 88MCG TABLET (0.088 MG) PO SCH (06:11)
[2016-12-29] MEDS: PANTOPRAZOLE 40MG INJ (PROTONIX) (C9113) IV SCH (09:22)
[2016-12-29] MEDS: hydroCHLOROthiazide 25 MG TAB PO SCH (09:23)
[2016-12-29] MEDS: DOCUSATE SODIUM 100 MG CAP PO SCH (09:23)
--- NOTE | 2016-12-29 15:06 | IPNPDOC ---
Date Seen The patient was seen on 12/29/16. Progress Note SUBJECTIVE: The patient is awake. She is fully oriented at this time. She denies any complaints of pain or headache at this time. She tells me she feels well. OBJECTIVE PHYSICAL EXAMINATION: VITAL SIGNS: Please see below. GENERAL: Frail elderly female sitting in bed she has moist mucous membranes she speaks slowly with prominent Lt sided facial droop not new HEENT: Pupils are close to pinpoint bilaterally and minimally reactive to light , left-sided facial droop CARDIOVASCULAR: S1-S2. RESPIRATORY: Clear. ABDOMINAL: Bowel sounds present abdomen soft EXTREMITIES: Paralysis of left upper extremity spontaneously moves right upper extremity right lower extremity as well as left lower extremity to painful stimuli. No edema NEUROLOGICAL: No change from previously days documented exams LABORATORY DATA: Please see below. MICROBIOLOGY: Please see below. IMAGING: CT scan of the head from 12/25: The right frontal lobe hematoma is again identified today measuring 3.6 x 2.6 cm, not significantly changed. There is edema surrounding the hematoma as previously. Small volume of hemorrhage is again noted in the subarachnoid space adjacent to the hematoma, unchanged. There is effacement of the right lateral ventricle and there is right to left midline shift of approximately 3.88 mm. This has increased from the 1-[address] angiography of the head from :Normal MRA of the head. Right frontal acute hematoma. Unchanged mild midline shift to the left side CT head from :Unchanged right frontal acute hematoma. Increased surrounding edema. Increased mass effect. Increased midline shift to the left side. Thank you for your kind referral of this patient. Echocardiogram: 1. No definite cardiac source of systemic embolism identified. 2. Normal left ventricle internal dimensions and wall thickness. No regional LV wall motion abnormalities. Hyperdynamic left ventricle (LV) systolic function. Left ventricular ejection fraction (LVEF) of 75% by visual estimate. Normal LV diastolic function for age. 3. Suggestive of moderate elevation of estimated right ventricle systolic pressure and pulmonary artery systolic pressure. Mild tricuspid regurgitation. 4. Moderately technically difficult echocardiogram. 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 PROBLEMS: 1. Hemorrhagic CVA: Believed to be related to uncontrolled hypertension, goal systolic blood pressure is less than 150 she is currently on metoprolol and hydrochlorothiazide. The patient has completed 5 days of bedrest as per neurosurgery, I did discuss the patient's case with them the patient is cleared for discharge from their perspective. Neurosurgery advises the patient remain on seizure prophylaxis for one more additional day, and continue with her blood pressure goals and they will arrange outpatient follow-up. Neurosurgery has cleared the patient to work with physical therapy. The patient appears stable and doing fairly well able to feed herself we will attempt to advance her diet as tolerated and continue to get her out of bed into chair do as much physical therapy as possible and think she would benefit from extended rehabilitation. I will start her on a statin. Otherwise CVA workup negative thus far 2. Chronic kidney disease: Is stable and likely at baseline continue to monitor. 3. Anemia: Stable possibly some iron deficiency anemia when she is taking better by mouth we'll start some iron supplementation 4. Hypothyroidism: Continue with Synthroid 3. Stress ulcer prophylaxis: IV Protonix. 5. Hypertension: As outlined above DISPOSITION: I suspect the patient will require at least subacute rehabilitation will have her work with physical therapy and potentially disposition to rehabilitation facility Saturday VS, I&O, 24H, [facility] Vital Signs/I&O Vital Signs Date Time Temp Pulse Resp B/P (MAP) Pulse Ox O2 Delivery O2 Flow Rate FiO2 12/29/16 12:35 151/70 12/29/16 12:00 97.2 70 20 94 Room Air 12/27/16 03:00 2.0 I&O- Last 24 Hours up to 6 AM 12/30/16 06:00 Intake Total 220 ml Output Total 0 ml Balance 220 ml Laboratory Data 24H LABS Laboratory Tests 2 12/29/16 04:48: Anion Gap 8, Glomerular Filtration Rate 35.5, Blood Urea Nitrogen 41H, Creatinine 1.50H, Sodium Level 145, Potassium Level 4.3, Chloride Level 111H, Carbon Dioxide Level 26, Calcium Level 8.2L, Aspartate Amino Transf (AST/SGOT) 19, Alanine Aminotransferase (ALT/SGPT) 20, Alkaline Phosphatase 63, Total Bilirubin 0.6, Total Protein 5.7L, Albumin 2.6L, Albumin/Globulin Ratio 0.84L CBC/BMP Laboratory Tests 12/29/16 04:48 Red Blood Count 3.33 L, Mean Corpuscular Volume 93.6, Mean Corpuscular Hemoglobin 30.9, Mean Corpuscular Hemoglobin Concent 33.1, Red Cell Distribution Width 13.0, Calcium Level 8.2 L, Aspartate Amino Transf (AST/SGOT) 19, Alanine Aminotransferase (ALT/SGPT) 20, Alkaline Phosphatase 63, Total Bilirubin 0.6, Total Protein 5.7 L, Albumin 2.6 L Microbiology Microbiology 12/23/16 Urine Culture - Final, Complete JARON MEDRANO MD Dec 29, 2016 15:06
[2016-12-29] MEDS: DOCUSATE SOD LIQ 100MG/10ML UDC PO SCH (20:22)
[2016-12-29] MEDS: SIMVASTATIN 20 MG TAB PO SCH (20:22)
[2016-12-30] MEDS: ACETAMINOPHEN TAB 650MG DOSE (2X325MG) PO SCH ×7 (00:49→23:23)
[2016-12-30] MEDS: **hydrALAZINE** 10 MG TAB PO SCH ×3 (05:00→17:56)
[2016-12-30] MEDS: LEVOTHYROXINE 88MCG TABLET (0.088 MG) PO SCH (05:41)
[2016-12-30 06:00] VITALS: BP 144/69
[2016-12-30] MEDS: hydroCHLOROthiazide 25 MG TAB PO SCH (09:36)
[2016-12-30] MEDS: DOCUSATE SOD LIQ 100MG/10ML UDC PO SCH ×2 (09:37→22:31)
[2016-12-30] MEDS: PANTOPRAZOLE 40MG INJ (PROTONIX) (C9113) IV SCH (09:37)
[2016-12-30 10:00] VITALS: BP 136/63
--- NOTE | 2016-12-30 12:20 | IPNPDOC ---
Date Seen The patient was seen on 12/30/16. Progress Note SUBJECTIVE: The patient is awake. She is fully oriented at this time. She denies any complaints of pain or headache at this time. She tells me she feels well, she tells me that she wants to go to rehab to do more therapy! OBJECTIVE PHYSICAL EXAMINATION: VITAL SIGNS: Please see below. GENERAL: Frail elderly female sitting in bed she has moist mucous membranes she speaks slowly with prominent Lt sided facial droop unchanged HEENT: Pupils are close to pinpoint bilaterally and minimally reactive to light , left-sided facial droop CARDIOVASCULAR: S1-S2. RESPIRATORY: Clear. ABDOMINAL: Bowel sounds present abdomen soft EXTREMITIES: Paralysis of left upper extremity spontaneously moves right upper extremity right lower extremity as well as left lower extremity to painful stimuli. No edema NEUROLOGICAL: unchanged LABORATORY DATA: Please see below. MICROBIOLOGY: Please see below. IMAGING: CT scan of the head from 12/25: The right frontal lobe hematoma is again identified today measuring 3.6 x 2.6 cm, not significantly changed. There is edema surrounding the hematoma as previously. Small volume of hemorrhage is again noted in the subarachnoid space adjacent to the hematoma, unchanged. There is effacement of the right lateral ventricle and there is right to left midline shift of approximately 3.88 mm. This has increased from the 1-[address] angiography of the head from :Normal MRA of the head. Right frontal acute hematoma. Unchanged mild midline shift to the left side CT head from :Unchanged right frontal acute hematoma. Increased surrounding edema. Increased mass effect. Increased midline shift to the left side. Thank you for your kind referral of this patient. Echocardiogram: 1. No definite cardiac source of systemic embolism identified. 2. Normal left ventricle internal dimensions and wall thickness. No regional LV wall motion abnormalities. Hyperdynamic left ventricle (LV) systolic function. Left ventricular ejection fraction (LVEF) of 75% by visual estimate. Normal LV diastolic function for age. 3. Suggestive of moderate elevation of estimated right ventricle systolic pressure and pulmonary artery systolic pressure. Mild tricuspid regurgitation. 4. Moderately technically difficult echocardiogram. 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 PROBLEMS: 1. Hemorrhagic CVA: Believed to be related to uncontrolled hypertension, BP controlled with metoprolol and hydrochlorothiazide. The patient has completed 5 days of bedrest as per neurosurgery, I did discuss the patient's case with them the patient is cleared for discharge from their perspective. Neurosurgery advises the patient remain on seizure prophylaxis to complete 7days, which has not passed and will be d/c'd. NSGY will arrange outpatient follow-up. Neurosurgery has cleared the patient to work with physical therapy. The patient appears stable and doing fairly well able to feed herself we will continue to get her out of bed into chair and do as much physical therapy as possible. 2. Chronic kidney disease: Is stable and likely at baseline continue to monitor. 3. Anemia: Stable possibly some iron deficiency anemia when she is taking better by mouth we'll start some iron supplementation 4. Hypothyroidism: Continue with Synthroid 3. Stress ulcer prophylaxis: IV Protonix. 5. Hypertension: As outlined above DISPOSITION: I suspect the patient will require at least subacute rehabilitation will have her work with physical therapy and potentially disposition to rehabilitation facility Saturday VS, I&O, 24H, [facility] Vital Signs/I&O Vital Signs Date Time Temp Pulse Resp B/P (MAP) Pulse Ox O2 Delivery O2 Flow Rate FiO2 12/30/16 10:00 97.8 70 16 136/63 (87) 96 Room Air 12/27/16 03:00 2.0 I&O- Last 24 Hours up to 6 AM 12/31/16 05:59 Intake Total 180 ml Output Total 200 ml Balance -20 ml Laboratory Data Microbiology Microbiology 12/23/16 Urine Culture - Final, Complete JARON MEDRANO MD Dec 30, 2016 12:20
[2016-12-30 18:00] VITALS: BP 135/63
[2016-12-30 22:00] VITALS: BP 130/56
[2016-12-30] MEDS: SIMVASTATIN 20 MG TAB PO SCH (22:33)
[2016-12-31 02:00] VITALS: BP 148/82
[2016-12-31] MEDS: ACETAMINOPHEN TAB 650MG DOSE (2X325MG) PO SCH ×6 (04:41→20:45)
[2016-12-31 06:00] VITALS: BP 146/66
[2016-12-31] MEDS: **hydrALAZINE** 10 MG TAB PO SCH ×4 (06:00→18:00)
[2016-12-31] MEDS: LEVOTHYROXINE 88MCG TABLET (0.088 MG) PO SCH (06:01)
[2016-12-31] MEDS: PANTOPRAZOLE 40MG INJ (PROTONIX) (C9113) IV SCH ×2 (09:00→10:41)
[2016-12-31] MEDS: DOCUSATE SOD LIQ 100MG/10ML UDC PO SCH ×2 (09:00→10:41)
[2016-12-31 10:00] VITALS: BP 136/67
[2016-12-31] MEDS: hydroCHLOROthiazide 25 MG TAB PO SCH (10:42)
[2016-12-31] MEDS ORDERED: DOCUSATE SODIUM 100 MG CAP PO PRN (12:30)
[2016-12-31] MEDS: PANTOPRAZOLE 40MG TAB (PROTONIX) PO SCH (12:46)
--- NOTE | 2016-12-31 12:57 | IPNPDOC ---
Date Seen The patient was seen on 12/31/16. Progress Note SUBJECTIVE: The patient is awake. She is fully oriented at this time. She tells me she feels well. OBJECTIVE PHYSICAL EXAMINATION: VITAL SIGNS: Please see below. GENERAL: Frail elderly female sitting in chair she has moist mucous membranes she speaks slowly with prominent Lt sided facial droop unchanged HEENT: Pupils are close to pinpoint bilaterally and minimally reactive to light , left-sided facial droop CARDIOVASCULAR: S1-S2. RESPIRATORY: Clear. ABDOMINAL: Bowel sounds present abdomen soft EXTREMITIES: Paralysis of left upper extremity spontaneously moves right upper extremity right lower extremity as well as left lower extremity to painful stimuli. No edema NEUROLOGICAL: unchanged LABORATORY DATA: Please see below. MICROBIOLOGY: Please see below. IMAGING: CT scan of the head from 12/25: The right frontal lobe hematoma is again identified today measuring 3.6 x 2.6 cm, not significantly changed. There is edema surrounding the hematoma as previously. Small volume of hemorrhage is again noted in the subarachnoid space adjacent to the hematoma, unchanged. There is effacement of the right lateral ventricle and there is right to left midline shift of approximately 3.88 mm. This has increased from the 1-[address] angiography of the head from :Normal MRA of the head. Right frontal acute hematoma. Unchanged mild midline shift to the left side CT head from :Unchanged right frontal acute hematoma. Increased surrounding edema. Increased mass effect. Increased midline shift to the left side. Thank you for your kind referral of this patient. Echocardiogram: 1. No definite cardiac source of systemic embolism identified. 2. Normal left ventricle internal dimensions and wall thickness. No regional LV wall motion abnormalities. Hyperdynamic left ventricle (LV) systolic function. Left ventricular ejection fraction (LVEF) of 75% by visual estimate. Normal LV diastolic function for age. 3. Suggestive of moderate elevation of estimated right ventricle systolic pressure and pulmonary artery systolic pressure. Mild tricuspid regurgitation. 4. Moderately technically difficult echocardiogram. 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 PROBLEMS: 1. Hemorrhagic CVA: Believed to be related to uncontrolled hypertension, BP controlled with metoprolol and hydrochlorothiazide. The patient has completed 5 days of bedrest as per neurosurgery, I did discuss the patient's case with them the patient is cleared for discharge from their perspective. NSGY will arrange outpatient follow-up. Neurosurgery has cleared the patient to work with physical therapy. The patient appears stable and doing fairly well able to feed herself we will continue to get her out of bed into chair and do as much physical therapy as possible. 2. Chronic kidney disease: Is stable and likely at baseline continue to monitor. 3. Anemia: Stable possibly some iron deficiency anemia when she is taking better by mouth we'll start some iron supplementation 4. Hypothyroidism: Continue with Synthroid 3. Stress ulcer prophylaxis: changed to PO protonix 5. Hypertension: As outlined above DISPOSITION: I suspect the patient will require at least subacute rehabilitation will have her work with physical therapy. VS, I&O, 24H, [facility] Vital Signs/I&O Vital Signs Date Time Temp Pulse Resp B/P (MAP) Pulse Ox O2 Delivery O2 Flow Rate FiO2 12/31/16 12:00 145/67 12/31/16 10:00 96.8 59 20 99 12/31/16 06:00 Room Air 12/27/16 03:00 2.0 I&O- Last 24 Hours up to 6 AM 01/01/17 06:00 Intake Total 120 ml Balance 120 ml Laboratory Data Microbiology Microbiology 12/23/16 Urine Culture - Final, Complete JARON MEDRANO MD Dec 31, 2016 12:57
[2016-12-31 14:00] VITALS: BP 145/75
[2016-12-31 18:00] VITALS: BP 124/66
[2016-12-31] MEDS: SIMVASTATIN 20 MG TAB PO SCH (20:45)
[2017-01-01] VITALS (8 sets, daily range): BP systolic 128–152; BP diastolic 63–80
[2017-01-01] MEDS: ACETAMINOPHEN TAB 650MG DOSE (2X325MG) PO SCH ×5 (05:15→12:15)
[2017-01-01] MEDS: LEVOTHYROXINE 88MCG TABLET (0.088 MG) PO SCH (05:33)
[2017-01-01] MEDS: **hydrALAZINE** 10 MG TAB PO SCH ×3 (05:34→11:17)
[2017-01-01] MEDS ORDERED: FERROUS SULFATE 325MG TAB PO SCH (09:00)
[2017-01-01] MEDS: PANTOPRAZOLE 40MG TAB (PROTONIX) PO SCH (11:10)
[2017-01-01] MEDS: hydroCHLOROthiazide 25 MG TAB PO SCH (11:10)
--- NOTE | 2017-01-01 11:48 | IPN ---
DATE: 01/01/2017 81-year-old female seen at bedside. No overnight issues reported. Resting comfortably. Physical therapy (PT)/occupational therapy (OT) are to see her today and to determine whether she is a candidate for subacute rehab. She did tolerate her breakfast. OBJECTIVE: Temperature is 97.5, pulse 70, respiratory rate 18, BP 128/71, SPO2 is 95% on room air. General: The patient appears to be in no acute distress. Is alert, oriented. HEENT: Unremarkable. Lungs: Clear. Heart: Regular rate and rhythm. Abdomen: Soft. Extremities: No edema, no calf tenderness. LABORATORY DATA: White count 5.6, hemoglobin 10.3, platelets 217. Sodium 145, potassium 4.3, chloride 111, bicarb 26, anion gap 8, BUN is 41, creatinine 1.50, glucose 94, calcium 8.2, total bilirubin 0.6, AST 19, ALT 20, alkaline phosphatase 63, albumin 2.6, cholesterol 122, LDL 48.6, triglycerides 92, TSH 1.480. ASSESSMENT/PLAN: 1. 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 Blood pressure is better controlled with metoprolol and hydrochlorothiazide. Has completed 5 days bedrest per neurosurgery and we are attempting to progress with physical therapy and occupational therapy since neurosurgery has cleared her at this point. She continues to do fairly well with feeding herself. We will see if we can advance her diet per her request. 2. CKD, likely stable. Will continue to monitor. 3. Iron deficient anemia. Will start on iron supplementation. 4. Hypothyroidism. Continue Synthroid. 5. Previously on stress ulcer prophylaxis. Will go ahead and discontinue her proton pump inhibitor (PPI) since she does appear to be beyond her acute illness. 6. Deep vein thrombosis (DVT) prophylaxis. Will hold on any anticoagulation. Encourage to ambulate. DISPOSITION: Likely will need subacute rehab.
[2017-01-01] MEDS ORDERED: COLA100C5 PO (14:34)
[2017-01-01] MEDS ORDERED: PANT40TA2 PO (14:34)
[2017-01-01] MEDS ORDERED: SIMV20TA2 PO (14:34)
[2017-01-01] MEDS ORDERED: SYNT88TA2 PO (14:34)
[2017-01-01] MEDS ORDERED: HYDR10TAB PO (14:34)
[2017-01-01] MEDS ORDERED: MAPA325T3 PO (14:34)
[2017-01-01] MEDS ORDERED: TRAM50TA2 PO (14:34)
[2017-01-01] MEDS ORDERED: HYDR25TAB PO (14:34)
[2017-01-01] MEDS ORDERED: FERR325T3 PO (15:00)
--- NOTE | 2017-01-01 15:58 | DSES ---
DATE OF ADMISSION: 12/12/2016 DATE OF DISCHARGE: 01/01/2017 PRIMARY CARE PROVIDER: None listed. CONSULTATIONS: Dr. Juarez, Dr. Torres PROCEDURES PERFORMED: None. COMPLICATIONS: None. ADMISSION/DISCHARGE DIAGNOSES: 1. Hemorrhagic cerebrovascular accident due to uncontrolled hypertension. 2. Hypertension. 3. CKD. 4. Iron deficient anemia. 5. Hypothyroidism. BRIEF HOSPITAL COURSE: 81-year-old female presented to the emergency department on 12/22/2016, with severe hypertension and noted intracranial intraparenchymal hemorrhage, felt to be secondary to severely elevated hypertension and hypertensive emergency. She did have some renal insufficiency which was felt to be related to her underlying CKD. She was noted to be a full code. Poor prognosis was noted. Discussions made with family and Dr. Juarez was consulted. Repeat head CT on 12/25/2016, did not demonstrate any further progression. She did seem to be doing decently with physical therapy and on date of discharge was felt to qualify for PM and R. Please refer to today's progress note regarding labs and physical examination. DISCHARGE CONDITION: Good. DISPOSITION: The patient will be discharged to PM and R. DISCHARGE MEDICATIONS: - Tylenol 650 mg every 4 hours as needed - Colace 100 mg twice a day as needed - hydralazine 10 mg every 6 hours as needed - hydrochlorothiazide 25 mg daily - Synthroid 88 mcg daily - pantoprazole 40 mg daily - simvastatin 20 mg daily - tramadol 50 mg every 4 hours as needed DISCHARGE INSTRUCTIONS: The patient be discharged to PM and R for further therapy. Activity as tolerated. Regular diet. Will need to followup with her primary care provider when she has been discharged to home.
== END 2017-01-01 15:26 | DRG 64 ==
LOC: M ED 20:27 → M ED INP 22:15 → M ICU 22:52 → M PCU 12-29 00:09 → M MSPAV 12-29 17:55
PROVIDERS: ADMIT Neurological Surgery; ATTEND Hospitalist
PROC: 03HY33Z Insertion of Infusion Device into Upper Artery, Percutaneous Approach (ICD-10-PCS; principal; 2016-12-22)
DX: I61.9 Nontraumatic intracerebral hemorrhage, unspecified (principal); G93.6 Cerebral edema; I16.1 Hypertensive emergency; E03.9 Hypothyroidism, unspecified; N18.9 Chronic kidney disease, unspecified; D50.9 Iron deficiency anemia, unspecified; I12.9 Hypertensive chronic kidney disease with stage 1 through stage 4 chronic kidney disease, or unspecified chronic kidney disease; Z79.899 Other long term (current) drug therapy

== ENCOUNTER 2017-01-01 15:07 | Inpatient (IN) | payer MEDICARE, OTHER ==
[~2017-01-01] VITALS: Ht 149.9 cm; Wt 75.0 kg
[~2017-01-01 15:07] MED LIST: COLA100C5 PO; FERR325T3 PO; HYDR10TAB PO; HYDR25TAB PO; LEVO88TA3 PO; MAPA325T3 PO; MAXZTA PO; PANT40TA2 PO; SIMV20TA2 PO; SYNT88TA2 PO; TRAM50TA2 PO
[2017-01-01 15:35] VITALS: BP 128/70
[2017-01-01] MEDS ORDERED: FLEET ENEMA PR PRN (15:45)
[2017-01-01] MEDS ORDERED: BISACODYL 10 MG SUPP PR PRN (15:45)
[2017-01-01] MEDS: **hydrALAZINE** 10 MG TAB PO SCH (18:00)
[2017-01-01 20:00] VITALS: BP 139/64
[2017-01-01] MEDS: DOCUSATE SODIUM 100 MG CAP PO SCH (20:17)
[2017-01-01] MEDS: SIMVASTATIN 20 MG TAB PO SCH (20:17)
[2017-01-01] MEDS: ACETAMINOPHEN TAB 650MG DOSE (2X325MG) PO PRN (20:20)
--- NOTE | 2017-01-01 20:24 | PMRHPE ---
DATE OF ADMISSION: 01/01/2017 REASON FOR ADMISSION: Rehabilitation of right hemorrhagic CVA with right frontal intracerebral hemorrhage and parenchymal bleed and 3.8 mm midline shift causing left hemiparesis, left facial droop, dysarthria, dysphagia, and left hemiparesis. HISTORY OF PRESENT ILLNESS: The patient is an 81-year-old white female who on 12/22/2016 presented to [facility] emergency room with severe hypertension and left sided motor findings. The patient was evaluated and treated for the severe hypertension and evaluated by Dr. Juarez for possible surgical intervention. CT scan of the head showed the intracranial and intraparenchymal hemorrhage, which was somewhat slightly greater on repeat of 12/25/2016, as far as midline shift. The patient has been treated for the bleed initially with strict bed rest and limited therapies and then has progressed on to after 5 day bedrest to physical, occupational and speech evaluations and training, as well as hypertensive management, but was also found to have some acute on chronic renal impairment and was treated for that. However, today the patient's cognition was noted to have improve and her overall effort and performance in physical and occupational therapy was that the patient is now able to participate and benefit from 3 hours of therapy per day as opposed to her more limited endurance in the previous few days. Therefore, the patient is transferred to the acute rehabilitation unit today for a trial of neuro rehabilitation. PAST MEDICAL HISTORY: Includes: 1. Hypothyroidism. 2. Hypertension. 3. Hyperlipidemia. 4. Chronic kidney disease. 5. Iron deficiency anemia. 6. Lower extremity edema. FAMILY HISTORY: Noncontributory, though it is noted that there may be cold urticaria as the patient's granddaughters have it and will need to be watched in using cold treatments with her. SOCIAL HISTORY: The patient lives with her in a one-level home with approximately four to five steps into the home. She does not smoke. She does drink some alcohol. The patient is retired. MEDICATIONS: On admission: - Tylenol - Dulcolax suppository - Colace - iron sulfate for her iron deficiency anemia - hydralazine for hypertension - hydrochlorothiazide for hypertension - Synthroid 88 mcg daily for hypothyroidism - pantoprazole for gastrointestinal protection - simvastatin for hyperlipidemia - Fleet enema as needed for constipation - Tramadol 50 mg every 4 hours is now being started for as needed pain management ALLERGIES: AMOXICILLIN, CHOCOLATE. REVIEW OF SYSTEMS: The patient continues with dysarthria or dysphagia, but would like to transition on to more of a regular diet from her pureed diet at this time. Notes problems with bright light and tendency for her pupils to be constricted and also intolerance to cold environments, feeling very cold in a 75 degree room. Otherwise negative 10-point review of systems. PHYSICAL EXAMINATION: The patient is a short, overweight, elderly, white female who looks approximately stated age of 81, who is in no acute distress, but does show left facial droop and mild dysarthric speech with decreased left upper extremity and lower extremity control and is mildly anxious, but pleasant and cooperative. VITAL SIGNS: The patient is 4 feet 11 inches and weighs 73 kg. Temperature is 97.4, blood pressure 128/70, pulse 80, respirations 18, pulse oximetry is 98% on room air. HEENT: Normocephalic with left facial droop and very mild deviation of the tongue to the left and very mildly dysarthric speech with no gurgling noises or notable pooling. Pupils are equal at 2 mm, round and reactive to light and accommodation, constricting from 2 to 1 mm. The patient is conjugate. Hearing is mildly decreased. NECK: Supple. LUNGS: Clear in all bosch to auscultation. CORONARY: Shows a slow normal but regular rate and rhythm with normal S1, S2 and without S3, S4, murmurs or rubs. 2/4 bilateral radial pulses. Good perfusion into the upper and lower extremities, but there is some nonpitting edema throughout both upper extremities, greater on the left, which is the paretic side, and approximately 3 out of 4 in the lower extremities on the left and 2 out of 4 on the right, but nonpitting. ABDOMEN: Mildly obese. Nontender. Normal bowel sounds in all quadrants. Normal percussion throughout. No palpable masses or stools felt. EXTREMITIES: Passive range of motion of the left upper and lower extremity within normal limits, though the patient has a little tenderness in the left shoulder due to a prior shoulder injury. Right upper and lower extremity with active range of motion within functional limits. NEUROLOGIC: The patient is alert and oriented times four. Speech is mildly dysarthric. Light touch and vibration are intact in bilateral upper and lower extremities. Tone is elevated in the left shoulder and upper extremity into a flexor pattern but there is no subluxation while lying in bed. Mild elevation of tone in the left lower extremity upon passive motion, not present on either the right upper or lower extremities. Deep tendon reflexes show 2+ left biceps, 2/4 right biceps, 2+ left brachioradialis, 2/4 right brachioradialis, 2 left triceps, 1+ right triceps with 2/4 bilateral knee jerks, 1/4 bilateral ankle jerks, toes are equivocal on plantar stimulation. LABORATORY DATA: White count 5.6 thousand, hemoglobin and hematocrit 10.3 and 31.3, which are stable from the patient's admission with 217,000 platelets, MCV of 93.6 and RDW normal at 13.0. Sodium 145, potassium 4.3, carbon dioxide 26, chloride elevated at 111 on the . BUN of 41, which was improved on the from prior days, and creatinine of 1.5, demonstrating her acute on chronic renal disease and GFR of 35.5 with a fasting blood sugar of 94. Albumin is reduced at 2.6 with calcium similarly reduced at 8.2 and normal liver function tests. Lipid panel from the was within normal limits. ASSESSMENT AND PLAN: 1. Rehabilitation of right cerebral/intraparenchymal hemorrhage with midline shift from right to the left of 3.8 mm secondary to hypertensive crisis. The patient was admitted with a systolic blood pressure greater than 190, which is resulted in left hemiparesis, left facial droop, dysarthria, dysphagia, and left hemiparesis; however, appears to be intact grossly for sensorium. The patient needs to regain a level of modified independence in ambulation and able to do five stairs, use appropriate adaptive equipment for returning home alone with modified independence using appropriate adaptive equipment in activities of daily living. I will go ahead and have speech therapy do cognitive and speech and swallowing evaluation done on the patient as appropriate with physical and occupational therapy, working on balance, endurance, adaptive activities of daily living and mobility with appropriate equipment. The patient will continue with training through rehabilitation nursing and physiatry. 2. Anemia. I will go ahead and start iron supplementation as suggested in Dr. Desai's note from this morning. Complete blood count (CBC) with differential tomorrow. 3. Hypertension. The hospitalist team has been consulted to help with management. At this time, I will go ahead and continue the hydrochlorothiazide, along with the hydralazine 10 mg every 6 hours and hydrochlorothiazide 25 mg daily to control blood pressure. 4. Hyperlipidemia. We will continue with simvastatin. The patient's most recent lipid panel shows good numbers on that. 5. Constipation. The patient has limited bowel movements since admission and not within the last few days. I will go ahead and try to get the patient more up and active with ambulation and continue the Colace 100 mg twice a day, but also look toward Dulcolax suppository and/or Fleet enema to get the patient going, which is probably partially contributed to by her bed rest, as well as paresis. 4. Hypothyroidism. We will continue the Synthroid 88 mcg per day. 5. Chronic kidney disease. We will continue to observe on a regular basis. Get a comprehensive metabolic panel tomorrow. POST-ADMISSION PHYSICIAN EVALUATION: The patient has significantly improved in the last 36 hours, now participating better and being much more alert and interactive with therapy and appears to now be at the point where she should be able to tolerate acute intensive neuro rehabilitation and was admitted to the unit today for that. She is consistent with the preadmission screen. I do feel that she has significant deficits, including the hemiparesis, dysarthria, dysphagia to improve upon to allow her to safely return to home with her . We will proceed with physical, occupational and speech therapy to address these deficits. I do feel she has good prognosis for becoming able to tolerate and benefit from 3 hours of therapy per day. I anticipate that she will be able to achieve discharge goals to return back to home with her and her overall prognosis is good. Her estimated length of stay is at this time 17 to 21 days; however, her recent marked improvement in the last 36 hours may show potential for doing better than that. Time spent on chart review, history and physical, and documentation is greater than 70 minutes.
[2017-01-01 22:19] LABS: CALCIUM OXALATE CRYSTALS SMALL
[2017-01-02] MEDS: **hydrALAZINE** 10 MG TAB PO SCH ×4 (00:02→17:51)
[2017-01-02] MEDS: LEVOTHYROXINE 88MCG TABLET (0.088 MG) PO SCH (05:37)
[2017-01-02 05:56] VITALS: BP 110/58
[2017-01-02 06:42] LABS: BASO # 0.1 10^3/uL (0.0-0.2); BASO % 0.7 % (0.0-1.0); EOS # 0.4 10^3/uL (0.0-0.50); EOS % 6.1 % (0.0-3.0); IMMATURE GRANULOCYTE % 0.3 % (0-0); LYMPH # 1.1 10^3/uL (1.5-4.5); LYMPH % 15.8 % (24.0-44.0); MEAN CORPUSCULAR HEMOGLOBIN 29.5 pg (27.0-33.0); MEAN CORPUSCULAR HGB CONC 31.4 g/dl (32.0-36.5); MONO # 0.7 10^3/uL (0.0-0.8); NEUTROPHILS # 4.9 10^3/uL (1.8-7.7); NEUTROPHILS % 67.1 % (36.0-66.0); PLATELET COUNT, AUTOMATED 263 10^3/uL (150-450); RED CELL DISTRIBUTION WIDTH 13.6 % (11.5-14.5); WHITE BLOOD COUNT 7.2 10^3/uL (4.0-10.0)
[2017-01-02 07:06] LABS: ALBUMIN 2.8 GM/DL (3.2-5.2); ALBUMIN/GLOBULIN RATIO 0.8 (1.00-1.93); BILIRUBIN,TOTAL 0.6 MG/DL (0.2-1.0); CALCIUM LEVEL 8.9 MG/DL (8.8-10.2); CREATININE FOR GFR 1.61 MG/DL (0.55-1.02); GLOMERULAR FILTRATION RATE 32.7 (>32); POTASSIUM SERUM 3.9 MEQ/L (3.5-5.1); TOTAL PROTEIN 6.3 GM/DL (6.4-8.2)
[2017-01-02] MEDS: hydroCHLOROthiazide 25 MG TAB PO SCH (09:42)
[2017-01-02] MEDS: FERROUS SULFATE 325MG TAB PO SCH (09:43)
[2017-01-02] MEDS: DOCUSATE SODIUM 100 MG CAP PO SCH ×2 (09:43→20:33)
[2017-01-02] MEDS: PANTOPRAZOLE 40MG TAB (PROTONIX) PO SCH (09:44)
--- NOTE | 2017-01-02 10:51 | CR.PDOC ---
[facility] Consultation Consultation CONSULTATION REPORT FOR: Dr Capone REASON FOR CONSULTATION: Medical Management DATE OF VISIT: 01/02/17 ATTENDING: Dr. Aram Cervantes PCP [facility]. HPI: 81year oldF with a past medical history significant for Rt hemorrhagic CVA related to uncontrolled hypertension admitted to [facility] 12/22/16 with left facial droop, left hemiparesis, dysarthria and dysphagia. Patient was noted to have severely elevated hypertension and hypertensive emergency. Neurosurgery was consulted, Dr Juarez. Follow-up CT head 12/25/16 and did not indicate any further progression. Subsequently the patient was transferred to the care of Dr Capone, ARU 01/01/17. No acute medical complaints today. Denies any fevers, chills, weakness, fatigue, Headache, Chest Pain, Shortness of breath, cough, palpitations, abdominal pain, N/V/D or changes in bowel or bladder habits. Consultation is requested for medical management. PMHx/PSH: Hemorrhagic CVA Hypertension/hypertensive emergency CKD3 Iron deficiency anemia Hypothyroidism SOCHX: Resides in: [facility] Marital Status: Employment: Retired Tobacco use: Denies ETOH: Occasional Illicit Drugs: Denies Advanced directives: Full code FAMHX: non contributory. ROS: As noted in HPI, otherwise 11pt ROS of systems reviewed and remarkable only for feeling fatigued with therapy. PE: GEN: 81yoF, appears stated age. Well-nourished, well developed. No acute distress. Alert and oriented x 3. Pleasant, interactive. HEENT: Normocephalic, atraumatic. Pupils are equal, round, and reactive to light. Extraocular movements are intact. No nystagmus appreciated. Sclera are nonicteric. Conjunctiva without injection. Nose midline. Nasal turbinates without bogginess. EACs both patent BL. TMs both visualized and guaman with good cone of light, no bulging or erythema. No facial asymmetry. Moist mucous membranes. Pharynx pink and moist. Neck supple, trachea midline. No lymphadenopathy or thyromegaly appreciated. CHEST: Regular rate and rhythm, +S1, +S2 LUNGS: Clear to auscultation bilaterally. No wheezes, rales, or rhonchi. Breathing appears symmetric and easy. Patient is speaking in full sentences. No accessory muscle use. ABD: Round, soft, non-tender, non-distended. +Bowel sounds throughout. No rebound or guarding. No costovertebral angle tenderness. EXT: Pulses 2+ bilaterally dorsalis pedis and radial. No lower extremity edema appreciated. SKIN: [place], dry, warm. Capillary refill <2sec. No rashes. NEURO: Alert and oriented x 3. left sided weakness. CT head 12/25/16 Comparisons are 12/22/2078 12/23/2016. The right frontal lobe hematoma is again identified today measuring 3.6 x 2.6 cm, not significantly changed. There is edema surrounding the hematoma as previously. Small volume of hemorrhage is again noted in the subarachnoid space adjacent to the hematoma, unchanged. There is effacement of the right lateral ventricle and there is right to left midline shift of approximately 3.88 mm. This has increased from the 1-2 mm previously. The ventricles are otherwise normal size. No other hemorrhages are identified. There are no other interval changes CTA Head 12/23/16 Normal MRA of the head. Right frontal acute hematoma. Unchanged mild midline shift to the left side TTE 12/27/16 1. No definite cardiac source of systemic embolism identified. 2. Normal left ventricle internal dimensions and wall thickness. No regional LV wall motion abnormalities. Hyperdynamic left ventricle (LV) systolic function. Left ventricular ejection fraction (LVEF) of 75% by visual estimate. Normal LV diastolic function for age. 3. Suggestive of moderate elevation of estimated right ventricle systolic pressure and pulmonary artery systolic pressure. Mild tricuspid regurgitation. 4. Moderately technically difficult echocardiogram. A&P: 81year oldF with a past medical history significant for Rt hemorrhagic CVA related to uncontrolled hypertension admitted to [facility] 12/22/16 with left facial droop, left hemiparesis, dysarthria and dysphagia. Patient was noted to have severely elevated hypertension and hypertensive emergency. Neurosurgery was consulted, Dr Juarez. Follow-up CT head 12/25/16 and did not indicate any further progression. Subsequently the patient was transferred to the care of LUCÍA Rojas 01/01/17. 1. Right hemorrhagic CVA. Continue statin. Neurosurgery consulted, Dr Juarez. No notes available. Management as per LUCÍA Rojas. PT/OT as per LUCÍA Rojas. Speech therapy as per LUCÍA Rojas Pain control as per LUCÍA Rojas Bowel care as per LUCÍA Rojas. DVT prophylaxis. SCDs/TEDS. 2. Hypertension. Continue hydralazine 10 mg every 6 hours. Continue hydrochlorothiazide 25 mg by mouth daily. Blood pressure this a.m. is noted to be 110/58. 3. CKD3. [place] likely to be at baseline, 1.4-1.7. Monitor. 4. Iron deficiency anemia. No prior colonoscopy and system, consider colonoscopy as outpatient. Continue with iron supplement. Monitor. 5. Hypothyroidism. Continue Synthroid. Thank you for your consultation. We will continue to follow along with you. Vital Signs/I&O Vital Signs Date Time Temp Pulse Resp B/P (MAP) Pulse Ox O2 Delivery O2 Flow Rate FiO2 01/02/17 05:56 98.1 86 18 110/58 (75) 96 Room Air I&O- Last 24 Hours up to 6 AM 01/03/17 06:00 Intake Total 100 ml Balance 100 ml Laboratory Data Labs 24H Laboratory Tests 2 01/01/17 21:59: Urine Appearance TURBIDH, Urine Color YELLOW, Urine pH 8.0, Urine Specific [place] 1.015, Urine Protein 3+H, Urine Glucose (UA) NEGATIVE, Urine Ketones NEGATIVE, Urine Urobilinogen 0.2, Urine Bilirubin NEGATIVE, Urine Leukocyte Esterase 2+H, Urine Blood 1+H, Urine Nitrite POSITIVE, Urine WBC (Auto) 68H, Urine RBC (Auto) 33H, Urine Hyaline Casts (Auto) 0, Urine Bacteria (Auto) NEGATIVE, Urine Squamous Epithelial Cells 1, Urine Calcium Oxalate Cryst (Auto) SMALL, Urine Mucus (Auto) LARGE, Urine Sperm (Auto) 01/02/17 06:25: White Blood Count 7.2, Red Blood Count 3.49L, Hemoglobin 10.3L, Hematocrit 32.8L , Mean Corpuscular Volume 94.0, Mean Corpuscular Hemoglobin 29.5, Mean Corpuscular Hemoglobin Concent 31.4L, Red Cell Distribution Width 13.6, Platelet Count 263, Neutrophils (%) (Auto) 67.1H, Lymphocytes (%) (Auto) 15.8L, Monocytes (%) (Auto) 10.0H, Eosinophils (%) (Auto) 6.1H, Basophils (%) (Auto) 0.7, Neutrophils # (Auto) 4.9, Lymphocytes # (Auto) 1.1L, Monocytes # (Auto) 0.7 , Eosinophils # (Auto) 0.4, Basophils # (Auto) 0.1, Immature Granulocyte # (Auto ) 0.0, Nucleated Red Blood Cells % (auto) 0.0, Anion Gap 8, Glomerular Filtration Rate 32.7, Blood Urea Nitrogen 52H, Creatinine 1.61H, Sodium Level 145, Potassium Level 3.9, Chloride Level 109H, Carbon Dioxide Level 28, Calcium Level 8.9, Aspartate Amino Transf (AST/SGOT) 24, Alanine Aminotransferase (ALT/ SGPT) 26, Alkaline Phosphatase 87, Total Bilirubin 0.6, Total Protein 6.3L, Albumin 2.8L, Albumin/Globulin Ratio 0.80L CBC/BMP Laboratory Tests 01/02/17 06:25 Red Blood Count 3.49 L, Mean Corpuscular Volume 94.0, Mean Corpuscular Hemoglobin 29.5, Mean Corpuscular Hemoglobin Concent 31.4 L, Red Cell Distribution Width 13.6, Neutrophils (%) (Auto) 67.1 H, Lymphocytes (%) (Auto) 15.8 L, Monocytes (%) (Auto) 10.0 H, Eosinophils (%) (Auto) 6.1 H, Basophils (% ) (Auto) 0.7, Neutrophils # (Auto) 4.9, Lymphocytes # (Auto) 1.1 L, Monocytes # (Auto) 0.7, Eosinophils # (Auto) 0.4, Basophils # (Auto) 0.1, Calcium Level 8.9 , Aspartate Amino Transf (AST/SGOT) 24, Alanine Aminotransferase (ALT/SGPT) 26, Alkaline Phosphatase 87, Total Bilirubin 0.6, Total Protein 6.3 L, Albumin 2.8 L Allergies Coded Allergies: Amoxicillin (Verified Allergy, Mild, rash, 12/22/16) rash Chocolate (Verified Allergy, Mild, itching, 12/27/16) Home Medications Scheduled Acetaminophen (Mapap) 325 Mg Tab, 650 MG PO Q4H, #120 Ferrous Sulfate (Ferrous Sulfate) 325 Mg Tab, 325 MG PO DAILY, #30 Hydralazine HCl (Hydralazine HCl) 10 Mg Tab, 10 MG PO Q6H, #120 Hydrochlorothiazide (Hydrochlorothiazide) 25 Mg Tab, 25 MG PO DAILY, #30 Levothyroxine Sodium (Synthroid) 88 Mcg Tab, 88 MCG PO DAILY@06, #30 Pantoprazole Sodium (Pantoprazole Sodium) 40 Mg Tab, 40 MG PO DAILY, #30 Simvastatin (Simvastatin) 20 Mg Tab, 20 MG PO QHS, #30 Scheduled PRN Docusate Sodium (Colace) 100 Mg Cap, 100 MG PO BIDP PRN for CONSTIPATION, #60 Tramadol HCl (Tramadol HCl) 50 Mg Tab, 50 MG PO Q4HP PRN for MODERATE PAIN (PS 5 -7), #60 Alia Callahan Jan 02, 2017 10:51
--- NOTE | 2017-01-02 12:40 | IPNPDOC ---
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 The patient was evaluated and treated for the severe hypertension and evaluated by Dr. Juarez for possible surgical intervention. CT scan of the head showed the intracranial and intraparenchymal hemorrhage, which was somewhat slightly greater on repeat of 12/25/2016, as far as midline shift. Patient admitted for trial of neuro rehabilitation with physical, occupational and speech language therapies. Patient seen this morning in her room sitting up in a chair reporting no complaints including pain. ALLERGIES: See Below MEDICATIONS: Reviewed, see below. OBJECTIVE: VITAL SIGNS: Please see below. PHYSICAL EXAMINATION: GENERAL: Short overweight elderly white female in no acute distress in good spirits and alert and well oriented. HEENT: Improvement in left facial droop with tongue essentially midline and improvement in speech quality showing less dysarthria. CARDIOVASCULAR: Regular rate and rhythm with normal S1-S2 without S3-S4 murmurs or rubs. 2/4 bilateral radial pulses. LUNGS: All bosch clear to auscultation. ABDOMEN: Bowel sounds present in all quadrants. NEUROLOGICAL: Patient is alert and oriented 4. Speech is clear coherent and appropriate with minimal dysarthria. Right body motor intact. Fair minus to fair left lower extremity motor. Some muscle twitching and shrug seen in the shoulder girdle muscles and to a lesser degree in the biceps. Tone remains in left upper and lower extremity and the classic hemiparetic pattern. SKIN: Grossly intact. LABORATORY DATA: Reviewed. Please see below. MICROBIOLOGY: Please see below. IMAGING: No new imaging. DVT prophylaxis ordered?: Patient currently using ANGELICA hose and sequential stockings with medications limited by risk of progressing the internal cranial hemorrhage. ASSESSMENT AND PLAN: 1. 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 Patient starting program today of physical, occupational and speech therapy of 3 hours of therapy per day. Patient does seem to be improving daily and it'll will be adjusting to see the impact of the increased therapy with her. Currently anticipating 17-21 day admission however hemorrhagic CVAs sometimes progress much more rapidly and we will assess tomorrow at team rounds and rowing forward. Patient has a very supportive family, however I am trying to encourage the to go get some rest as he wishes to be here 24 hours a day with her. 2. Acute on chronic renal disease: Patient presents BUN and creatinine are 52 1.6 with an estimated GFR of 32.7. I will work with medicine clinical operations consultant to see if we can do anything to improve on her overall renal function. Her initial urinalysis showing no bacteria did show 2+ leukocyte esterase and positive nitrite with third 3+ protein and turbid urine with 68 white blood cells and 33 red blood cells per high-powered field. To get better specimen I will have the UA and also have a urine DRAPERY HEAD FORMER repeated today off a catheterized specimen. 3. Anemia H&H is 10.3 and 32.8 today. We will continue to observe. TIME SPENT: Chart Review, examination and documentation require greater than 25 minutes. Allergies Coded Allergies: Amoxicillin (Verified Allergy, Mild, rash, 12/22/16) rash Chocolate (Verified Allergy, Mild, itching, 12/27/16) Vital Signs Vital Signs Date Time Temp Pulse Resp B/P (MAP) Pulse Ox O2 Delivery O2 Flow Rate FiO2 01/02/17 10:00 Room Air 01/02/17 05:56 98.1 86 18 110/58 (75) 96 Laboratory Data CBC/BMP Laboratory Tests 01/02/17 06:25 Red Blood Count 3.49 L, Mean Corpuscular Volume 94.0, Mean Corpuscular Hemoglobin 29.5, Mean Corpuscular Hemoglobin Concent 31.4 L, Red Cell Distribution Width 13.6, Neutrophils (%) (Auto) 67.1 H, Lymphocytes (%) (Auto) 15.8 L, Monocytes (%) (Auto) 10.0 H, Eosinophils (%) (Auto) 6.1 H, Basophils (% ) (Auto) 0.7, Neutrophils # (Auto) 4.9, Lymphocytes # (Auto) 1.1 L, Monocytes # (Auto) 0.7, Eosinophils # (Auto) 0.4, Basophils # (Auto) 0.1, Calcium Level 8.9 , Aspartate Amino Transf (AST/SGOT) 24, Alanine Aminotransferase (ALT/SGPT) 26, Alkaline Phosphatase 87, Total Bilirubin 0.6, Total Protein 6.3 L, Albumin 2.8 L Labs 24H Laboratory Tests 2 01/01/17 21:59: Urine Appearance TURBIDH, Urine Color YELLOW, Urine pH 8.0, Urine Specific [place] 1.015, Urine Protein 3+H, Urine Glucose (UA) NEGATIVE, Urine Ketones NEGATIVE, Urine Urobilinogen 0.2, Urine Bilirubin NEGATIVE, Urine Leukocyte Esterase 2+H, Urine Blood 1+H, Urine Nitrite POSITIVE, Urine WBC (Auto) 68H, Urine RBC (Auto) 33H, Urine Hyaline Casts (Auto) 0, Urine Bacteria (Auto) NEGATIVE, Urine Squamous Epithelial Cells 1, Urine Calcium Oxalate Cryst (Auto) SMALL, Urine Mucus (Auto) LARGE, Urine Sperm (Auto) 01/02/17 06:25: White Blood Count 7.2, Red Blood Count 3.49L, Hemoglobin 10.3L, Hematocrit 32.8L , Mean Corpuscular Volume 94.0, Mean Corpuscular Hemoglobin 29.5, Mean Corpuscular Hemoglobin Concent 31.4L, Red Cell Distribution Width 13.6, Platelet Count 263, Neutrophils (%) (Auto) 67.1H, Lymphocytes (%) (Auto) 15.8L, Monocytes (%) (Auto) 10.0H, Eosinophils (%) (Auto) 6.1H, Basophils (%) (Auto) 0.7, Neutrophils # (Auto) 4.9, Lymphocytes # (Auto) 1.1L, Monocytes # (Auto) 0.7 , Eosinophils # (Auto) 0.4, Basophils # (Auto) 0.1, Immature Granulocyte # (Auto ) 0.0, Nucleated Red Blood Cells % (auto) 0.0, Anion Gap 8, Glomerular Filtration Rate 32.7, Blood Urea Nitrogen 52H, Creatinine 1.61H, Sodium Level 145, Potassium Level 3.9, Chloride Level 109H, Carbon Dioxide Level 28, Calcium Level 8.9, Aspartate Amino Transf (AST/SGOT) 24, Alanine Aminotransferase (ALT/ SGPT) 26, Alkaline Phosphatase 87, Total Bilirubin 0.6, Total Protein 6.3L, Albumin 2.8L, Albumin/Globulin Ratio 0.80L Current Medications Current Medications Current Medications Acetaminophen (Tylenol Tab) 650 mg Q6HP PRN PO PAIN OR FEVER Last administered on 01/01/17t 20:20; Start 01/01/17 at 15:45; Stop 01/31/17 at 15:44 Bisacodyl (Dulcolax Suppository) 10 mg DAILYPRN PRN DC CONSTIPATION; Start at 15:45; Stop 01/31/17 at 15:44 Docusate Sodium (Colace) 100 mg BID PO Last administered on 01/02/17 09:43; Start 01/01/17 at 21:00; Stop 01/31/17 at 20:59 Ferrous Sulfate (Ferrous Sulfate) 325 mg DAILY PO Last administered on 09:43; Start 01/02/17 at 09:00; Stop 02/01/17 at 08:59 Home Med (Med Rec Complete!) ASDIRECTED XX ; Start 01/01/17 at 16:00; Stop at 16:00; Status DC Hydralazine HCl (Apresoline) 10 mg Q6H PO Last administered on 01/02/17 05:37 ; Start 01/01/17 at 18:00; Stop 01/31/17 at 17:59 Hydrochlorothiazide (Hydrodiuril) 25 mg DAILY PO Last administered on 09:42; Start 01/02/17 at 09:00; Stop 02/01/17 at 08:59 Levothyroxine Sodium (Synthroid) 88 mcg DAILY@06 PO Last administered on 05:37; Start 01/02/17 at 06:00; Stop 02/01/17 at 05:59 Pantoprazole Sodium (Protonix) 40 mg DAILY PO Last administered on 01/02/17 09 :44; Start 01/02/17 at 09:00; Stop 02/01/17 at 08:59 Simvastatin (Zocor) 20 mg QHS PO Last administered on 01/01/17 20:17; Start at 21:00; Stop 01/31/17 at 20:59 Sodium Biphosphate/ Sodium Phosphate (Fleet Enema) 1 ea DAILYPRN PRN DC CONSTIPATION; Start 01/01/17 at 15:45; Stop 01/31/17 at 15:44 Tramadol HCl (Ultram) 50 mg Q4HP PRN PO MODERATE/SEVERE PAIN (PS 5-10); Start 01/01/17 at 15:45; Stop 01/08/17 at 15:44 JAVI SMITH MD Jan 02, 2017 12:40
[2017-01-02 14:00] VITALS: BP 170/70
[2017-01-02 14:30] VITALS: BP 140/62
[2017-01-02] MEDS ORDERED: NS 500 ML IV ONE ×2 (15:00→21:00)
[2017-01-02] MEDS: CIPROFLOXACIN 200 MG in APPROPRIATE DILUENT 1 EA IV SCH (16:18)
[2017-01-02 20:31] VITALS: BP 132/60
[2017-01-02] MEDS: SIMVASTATIN 20 MG TAB PO SCH (20:33)
[2017-01-03] MEDS: **hydrALAZINE** 10 MG TAB PO SCH ×4 (00:02→18:26)
[2017-01-03] MEDS: CIPROFLOXACIN 200 MG in APPROPRIATE DILUENT 1 EA IV SCH ×2 (03:29→16:38)
[2017-01-03] MEDS: LEVOTHYROXINE 88MCG TABLET (0.088 MG) PO SCH (05:57)
[2017-01-03 06:00] VITALS: BP 142/68
[2017-01-03] MEDS: FERROUS SULFATE 325MG TAB PO SCH (08:15)
[2017-01-03] MEDS: PANTOPRAZOLE 40MG TAB (PROTONIX) PO SCH (08:15)
[2017-01-03] MEDS: hydroCHLOROthiazide 25 MG TAB PO SCH (08:15)
[2017-01-03] MEDS: DOCUSATE SODIUM 100 MG CAP PO SCH ×2 (08:16→20:32)
--- NOTE | 2017-01-03 09:33 | IPNPDOC ---
Computer Applications Engineer Progress Note DATE OF SERVICE: 01/03/17 DATE OF ADMISSION: Jan 01, 2017 at 15:30 INPATIENT REHABILITATION ADMISSION DAY: #3 SUBJECTIVE: The patient is an 81-year-old white female who on 12/22/[address] [facility] emergency room with severe hypertension and left sided motor findings. CT scan of the head showed the intracranial and intraparenchymal hemorrhage, which was somewhat slightly greater on repeat CT head of 12/25/2016, as far as midline shift. Patient admitted for trial of neuro rehabilitation with physical, occupational and speech language therapies. Patient reports feeling better this morning after IV Saline boluses yesterday. No pain or other complaints. did go home and rest last night and looks better for it. ALLERGIES: See Below MEDICATIONS: Reviewed, see below. OBJECTIVE: VITAL SIGNS: Please see below. PHYSICAL EXAMINATION: GENERAL: Short overweight elderly white female in no acute distress in good spirits and alert and well oriented. HEENT: Improvement in left facial droop to near normal range with tongue essentially midline and improvement in speech quality showing less dysarthria. CARDIOVASCULAR: Regular rate and rhythm with normal S1-S2 without S3-S4 murmurs or rubs. 2/4 bilateral radial pulses. LUNGS: All bosch clear to auscultation. ABDOMEN: Bowel sounds present in all quadrants. NEUROLOGICAL: Patient is alert and oriented 4. Speech is clear coherent and appropriate with minimal dysarthria. Right body motor intact. Fair minus to fair left lower extremity motor. Some muscle twitching and shrug seen in the shoulder girdle muscles and to a lesser degree in the biceps. Tone remains in left upper and lower extremity and the classic hemiparetic pattern. SKIN: Grossly intact. LABORATORY DATA: Reviewed. Please see below. MICROBIOLOGY: Please see below. IMAGING: No new imaging. DVT prophylaxis ordered?: Patient currently using ANGELICA hose and sequential stockings with medications limited by risk of progressing the internal cranial hemorrhage. ASSESSMENT AND PLAN: 1. 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 Patient starting program today of physical, occupational and speech therapy of 3 hours of therapy per day. Patient does seem to be improving daily and it'll will be adjusting to see the impact of the increased therapy with her. Currently anticipating 17-21 day admission however hemorrhagic CVAs sometimes progress much more rapidly and we will assess tomorrow at team rounds and rowing forward. Patient has a very supportive family. Her attention, energy facial muscular control are improved this morning. REHAB. TEAM ROUNDS: Patient is showing daily progression in oral control and swallowing with improving motor function and sensory awareness. She is compensating for the visual sensory deficits as well. Left Lower Extremity motor control is also improving. 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 Left Upper Extremity with slower progress. Patient participating well and progressing. Anticipated Discharge Date is 01/22/17. 2. Acute on chronic renal disease: Patient presents BUN and creatinine are 52 1.6 with an estimated GFR of 32.7. Patient given two 500 cc Normal Saline IV boluses yesterday and feels better today. Oral intake better in this morning with COOPERATIVE MANAGER. Uc&s pending, I will continue with IV Cipro into tomorrow pending the culture results. Repeat BMP tomorrow to check renal function. 3. Anemia H&H is 10.3 and 32.8 today. We will continue to observe. 4. Constipation: No BM since 12/31/16. Hopefully, the fluid boluses and increase PO intake will change this, otherwise I will have patient try enemas tomorrow. TIME SPENT: Chart Review, examination and documentation require greater than 25 minutes. Allergies Coded Allergies: Amoxicillin (Verified Allergy, Mild, rash, 12/22/16) rash Chocolate (Verified Allergy, Mild, itching, 12/27/16) Vital Signs Vital Signs Date Time Temp Pulse Resp B/P (MAP) Pulse Ox O2 Delivery O2 Flow Rate FiO2 01/03/17 06:00 98.8 67 20 142/68 (92) 97 Room Air Laboratory Data Labs 24H Laboratory Tests 2 01/02/17 12:11: Urine Appearance TURBIDH, Urine Color [place], Urine pH 8.0, Urine Specific [place] 1.016, Urine Protein 2+H, Urine Glucose (UA) NEGATIVE, Urine Ketones NEGATIVE, Urine Urobilinogen 0.2, Urine Bilirubin NEGATIVE, Urine Leukocyte Esterase 3+H, Urine Blood NEGATIVE, Urine Nitrite POSITIVE, Urine WBC (Auto) 102H, Urine RBC (Auto) 10H, Urine Hyaline Casts (Auto) 0, Urine Bacteria (Auto) 1+H, Urine Squamous Epithelial Cells 1, Urine Mucus (Auto) SMALL, Urine Sperm ( Auto) Microbiology Microbiology 01/02/17 Urine Culture, Received Pending Current Medications Current Medications Current Medications Acetaminophen (Tylenol Tab) 650 mg Q6HP PRN PO PAIN OR FEVER Last administered on 01/01/17 20:20; Start 01/01/17 at 15:45; Stop 01/31/17 at 15:44 Bisacodyl (Dulcolax Suppository) 10 mg DAILYPRN PRN NM CONSTIPATION; Start at 15:45; Stop 01/31/17 at 15:44 Ciprofloxacin 200 mg/IV Miscellaneous Supplies 100 ml @ 100 mls/hr Q12H IV Last administered on 01/03/17 03:29; Start 01/02/17 at 16:00; Stop 01/04/17 at 15:59 Docusate Sodium (Colace) 100 mg BID PO Last administered on 01/03/17 08:16; Start 01/01/17 at 21:00; Stop 01/31/17 at 20:59 Ferrous Sulfate (Ferrous Sulfate) 325 mg DAILY PO Last administered on 08:15; Start 01/02/17 at 09:00; Stop 02/01/17 at 08:59 Home Med (Med Rec Complete!) ASDIRECTED XX ; Start 01/01/17 at 16:00; Stop at 16:00; Status DC Hydralazine HCl (Apresoline) 10 mg Q6H PO Last administered on 01/03/17 05:57 ; Start 01/01/17 at 18:00; Stop 01/31/17 at 17:59 Hydrochlorothiazide (Hydrodiuril) 25 mg DAILY PO Last administered on 08:15; Start 01/02/17 at 09:00; Stop 02/01/17 at 08:59 Levothyroxine Sodium (Synthroid) 88 mcg DAILY@06 PO Last administered on 05:57; Start 01/02/17 at 06:00; Stop 02/01/17 at 05:59 Pantoprazole Sodium (Protonix) 40 mg DAILY PO Last administered on 01/03/17 08 :15; Start 01/02/17 at 09:00; Stop 02/01/17 at 08:59 Simvastatin (Zocor) 20 mg QHS PO Last administered on 01/02/17t 20:33; Start at 21:00; Stop 01/31/17 at 20:59 Sodium Biphosphate/ Sodium Phosphate (Fleet Enema) 1 ea DAILYPRN PRN NM CONSTIPATION; Start 01/01/17 at 15:45; Stop 01/31/17 at 15:44 Tramadol HCl (Ultram) 50 mg Q4HP PRN PO MODERATE/SEVERE PAIN (PS 5-10); Start 01/01/17 at 15:45; Stop 01/08/17 at 15:44 JAVI SMITH MD Jan 03, 2017 09:33
--- NOTE | 2017-01-03 13:13 | IPNPDOC ---
Date Seen The patient was seen on 01/03/17. Progress Note HPI: 81year oldF with a past medical history significant for Rt hemorrhagic CVA related to uncontrolled hypertension admitted to [facility] 12/22/16 with left facial droop, left hemiparesis, dysarthria and dysphagia. Patient was noted to have severely elevated hypertension and hypertensive emergency. Neurosurgery was consulted, Dr Juarez. Follow-up CT head 12/25/16 and did not indicate any further progression. Subsequently the patient was transferred to the care of LUCÍA Rojas 01/01/17. No acute medical complaints today. Denies any fevers, chills, weakness, fatigue, Headache, Chest Pain, Shortness of breath, cough, palpitations, abdominal pain, N/V/D or changes in bowel or bladder habits. Consultation is requested for medical management. PMHx/PSH: Hemorrhagic CVA Hypertension/hypertensive emergency CKD3 Iron deficiency anemia Hypothyroidism SOCHX: Resides in: [facility] Marital Status: Employment: Retired Tobacco use: Denies ETOH: Occasional Illicit Drugs: Denies Advanced directives: Full code FAMHX: non contributory. ROS: As noted in HPI, otherwise 11pt ROS of systems reviewed and remarkable only for feeling fatigued with therapy. PE: GEN: 81yoF, appears stated age. Well-nourished, well developed. No acute distress. Alert and oriented x 3. Pleasant, interactive. HEENT: Normocephalic, atraumatic. Pupils are equal, round, and reactive to light. Extraocular movements are intact. No nystagmus appreciated. Sclera are nonicteric. Conjunctiva without injection. Nose midline. Nasal turbinates without bogginess. EACs both patent BL. TMs both visualized and guaman with good cone of light, no bulging or erythema. No facial asymmetry. Moist mucous membranes. Dentition fair. Pharynx pink and moist, no cobblestoning. Neck supple , trachea midline. No lymphadenopathy or thyromegaly appreciated. CHEST: Regular rate and rhythm, +S1, +S2 LUNGS: Clear to auscultation bilaterally. No wheezes, rales, or rhonchi. Breathing appears symmetric and easy. Patient is speaking in full sentences. No accessory muscle use. ABD: Round, soft, non-tender, non-distended. +Bowel sounds throughout. No rebound or guarding. No costovertebral angle tenderness. EXT: Pulses 2+ bilaterally dorsalis pedis and radial. No lower extremity edema appreciated. SKIN: [place], dry, warm. Capillary refill <2sec. No rashes. NEURO: Alert and oriented x 3. Cranial nerves III-XII are intact. No focal deficits appreciated. CT head 12/25/16 Comparisons are 12/22/2078 12/23/2016. The right frontal lobe hematoma is again identified today measuring 3.6 x 2.6 cm, not significantly changed. There is edema surrounding the hematoma as previously. Small volume of hemorrhage is again noted in the subarachnoid space adjacent to the hematoma, unchanged. There is effacement of the right lateral ventricle and there is right to left midline shift of approximately 3.88 mm. This has increased from the 1-2 mm previously. The ventricles are otherwise normal size. No other hemorrhages are identified. There are no other interval changes CTA Head 12/23/16 Normal MRA of the head. Right frontal acute hematoma. Unchanged mild midline shift to the left side TTE 12/27/16 1. No definite cardiac source of systemic embolism identified. 2. Normal left ventricle internal dimensions and wall thickness. No regional LV wall motion abnormalities. Hyperdynamic left ventricle (LV) systolic function. Left ventricular ejection fraction (LVEF) of 75% by visual estimate. Normal LV diastolic function for age. 3. Suggestive of moderate elevation of estimated right ventricle systolic pressure and pulmonary artery systolic pressure. Mild tricuspid regurgitation. 4. Moderately technically difficult echocardiogram. A&P: 81year oldF with a past medical history significant for Rt hemorrhagic CVA related to uncontrolled hypertension admitted to [facility] 12/22/16 with left facial droop, left hemiparesis, dysarthria and dysphagia. Patient was noted to have severely elevated hypertension and hypertensive emergency. Neurosurgery was consulted, Dr Juarez. Follow-up CT head 12/25/16 and did not indicate any further progression. Subsequently the patient was transferred to the care of LUCÍA Rojas 01/01/17. 1. Right hemorrhagic CVA. Continue statin. Neurosurgery consulted, Dr Juarez. No notes available. Management as per LUCÍA Rojas. PT/OT as per LUCÍA Rojas. Speech therapy as per LUCÍA Rojas Pain control as per LUCÍA Rojas Bowel care as per LUCÍA Rojas. DVT prophylaxis. SCDs/TEDS. 2. Hypertension. Continue hydralazine 10 mg every 6 hours. Continue hydrochlorothiazide 25 mg by mouth daily. Blood pressure this a.m. is noted to be 137/76. 3. CKD3. [place] likely to be at baseline, 1.4-1.7. Monitor. 4. Iron deficiency anemia. No prior colonoscopy and system, consider colonoscopy as outpatient. Continue with iron supplement. Monitor. 5. Hypothyroidism. Continue Synthroid. 6. Probable UTI. Afebrile, no leukocytosis. IV Cipro D2. UC pending. VS, I&O, 24H, Fishbone Vital Signs/I&O Vital Signs Date Time Temp Pulse Resp B/P (MAP) Pulse Ox O2 Delivery O2 Flow Rate FiO2 01/03/17 12:40 137/76 01/03/17 09:00 Room Air 01/03/17 06:00 98.8 67 20 97 I&O- Last 24 Hours up to 6 AM 01/04/17 05:59 Intake Total 220 ml Balance 220 ml Laboratory Data Microbiology Microbiology 01/02/17 Urine Culture, Received Pending Alia Callahan Jan 03, 2017 13:13
[2017-01-03 14:00] VITALS: BP 150/67
[2017-01-03] MEDS: MOM 30ML SUSPENSION UDC PO PRN (16:38)
[2017-01-03 20:00] VITALS: BP 137/64
[2017-01-03] MEDS: SIMVASTATIN 20 MG TAB PO SCH (20:32)
[2017-01-04] MEDS: **hydrALAZINE** 10 MG TAB PO SCH ×4 (00:08→17:09)
[2017-01-04] MEDS: traMADol 50 MG TAB PO PRN (03:05)
[2017-01-04] MEDS: CIPROFLOXACIN 200 MG in APPROPRIATE DILUENT 1 EA IV SCH ×2 (03:05→15:41)
[2017-01-04 06:00] VITALS: BP 143/67
[2017-01-04] MEDS: LEVOTHYROXINE 88MCG TABLET (0.088 MG) PO SCH (06:07)
[2017-01-04 07:38] LABS: MEAN CORPUSCULAR HEMOGLOBIN 30.1 pg (27.0-33.0); MEAN CORPUSCULAR HGB CONC 31.5 g/dl (32.0-36.5); MEAN CORPUSCULAR VOLUME 95.4 fl (80.0-96.0); RED CELL DISTRIBUTION WIDTH 13.8 % (11.5-14.5); WHITE BLOOD COUNT 6.8 10^3/uL (4.0-10.0)
[2017-01-04 07:50] LABS: CALCIUM LEVEL 8.7 MG/DL (8.8-10.2); CREATININE FOR GFR 1.37 MG/DL (0.55-1.02); GLOMERULAR FILTRATION RATE 39.4 (>32)
[2017-01-04] MEDS: hydroCHLOROthiazide 25 MG TAB PO SCH (08:26)
[2017-01-04] MEDS: DOCUSATE SODIUM 100 MG CAP PO SCH ×2 (08:26→21:05)
[2017-01-04] MEDS: FERROUS SULFATE 325MG TAB PO SCH (08:26)
[2017-01-04] MEDS: PANTOPRAZOLE 40MG TAB (PROTONIX) PO SCH (08:26)
[2017-01-04] MEDS: MIRALAX *UNIT DOSE* 17GM PACKET PO SCH (09:15)
--- NOTE | 2017-01-04 10:54 | IPNPDOC ---
Information Technology Program Manager Progress Note DATE OF SERVICE: 01/04/17 DATE OF ADMISSION: Jan 01, 2017 at 15:30 INPATIENT REHABILITATION ADMISSION DAY: #4 SUBJECTIVE: The patient is an 81-year-old white female who on 12/22/2016 presented to [facility] emergency room with severe hypertension and left sided motor findings. CT scan of the head showed the intracranial and intraparenchymal hemorrhage, which was somewhat slightly greater on repeat CT head of 12/25/2016, as far as midline shift. Patient admitted for trial of neuro rehabilitation with physical, occupational and speech language therapies. Medicine team to watch fluids, renal function, anemia this weekend. Patient without complaints, except therapy tires her out. ALLERGIES: See Below MEDICATIONS: Reviewed, see below. OBJECTIVE: VITAL SIGNS: Please see below. PHYSICAL EXAMINATION: GENERAL: Short overweight elderly white female in no acute distress in good spirits and alert and well oriented. HEENT: Improvement in left facial droop to near normal range with tongue essentially midline and improvement in speech quality showing less dysarthria. CARDIOVASCULAR: Regular rate and rhythm with normal S1-S2 without S3-S4 murmurs or rubs. 2/4 bilateral radial pulses. LUNGS: All bosch clear to auscultation. ABDOMEN: Bowel sounds present in all quadrants. NEUROLOGICAL: Patient is alert and oriented 4. Speech is clear coherent and appropriate with minimal dysarthria. Right body motor intact. Fair minus to fair left lower extremity motor. Some muscle twitching and shrug seen in the shoulder girdle muscles and to a lesser degree in the biceps. Tone remains in left upper and lower extremity and the classic hemiparetic pattern. SKIN: Grossly intact. LABORATORY DATA: Reviewed. Please see below. MICROBIOLOGY: Please see below. IMAGING: No new imaging. DVT prophylaxis ordered?: Patient currently using ANGELICA hose and sequential stockings with medications limited by risk of progressing the internal cranial hemorrhage. ASSESSMENT AND PLAN: 1. 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 Patient starting program today of physical, occupational and speech therapy of 3 hours of therapy per day. Patient does seem to be improving daily and it'll will be adjusting to see the impact of the increased therapy with her. Currently anticipating 17-21 day admission however hemorrhagic CVAs sometimes progress much more rapidly and we will assess tomorrow at team rounds and rowing forward. Patient has a very supportive family. Her attention, energy facial muscular control are improved this morning. Patient is showing daily progression in oral control and swallowing with improving motor function and sensory awareness. She is compensating for the visual sensory deficits as well. Left Lower Extremity motor control is also improving. 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 Left Upper Extremity with slower progress, but today had some biceps twitch with the grade 1 to 2-/5 left shoulder muscles in OT session. Patient participating well and progressing. Anticipated Discharge Date is 01/22/17. 2. Acute on chronic renal disease: Patient presents today 01/04/17 with BUN and creatinine that are 48 & 1.37, and improved after the fluid bolus with an estimated GFR of 39.4 up from 32.7. Oral intake improving in this morning with MANAGER OF PROJECT MANAGEMENT. 3. Anemia H&H is 9.9 and 31.4 today, slight decline likely from fluid boluses. We will continue to observe. 4. Constipation: No BM since 12/31/16, then 2 yesterday. Patient requests Miralax , so I will order. 5. UTI: Uc&s shows Proteus Mirabilis that was present at admission. It is sensitive to Levaquin, so Cipro IV should work. On CBC the WBC was normal and patient without fevers. TIME SPENT: Chart Review, examination and documentation require greater than 25 minutes. Allergies Coded Allergies: Amoxicillin (Verified Allergy, Mild, rash, 12/22/16) rash Chocolate (Verified Allergy, Mild, itching, 12/27/16) Vital Signs Vital Signs Date Time Temp Pulse Resp B/P (MAP) Pulse Ox O2 Delivery O2 Flow Rate FiO2 01/04/17 08:00 Room Air 01/04/17 06:07 143/67 01/04/17 06:00 98.7 63 19 96 Laboratory Data CBC/BMP Laboratory Tests 01/04/17 06:52 Red Blood Count 3.29 L, Mean Corpuscular Volume 95.4, Mean Corpuscular Hemoglobin 30.1, Mean Corpuscular Hemoglobin Concent 31.5 L, Red Cell Distribution Width 13.8, Calcium Level 8.7 L Labs 24H Laboratory Tests 2 01/04/17 06:52: Anion Gap 6L, Glomerular Filtration Rate 39.4, Blood Urea Nitrogen 48H, Creatinine 1.37H, Sodium Level 144, Potassium Level 4.0, Chloride Level 108H, Carbon Dioxide Level 30, Calcium Level 8.7L Microbiology Microbiology 01/02/17 Urine Culture - Final, Complete Proteus Mirabilis Current Medications Current Medications Current Medications Acetaminophen (Tylenol Tab) 650 mg Q6HP PRN PO PAIN OR FEVER Last administered on 01/01/17 20:20; Start 01/01/17 at 15:45; Stop 01/31/17 at 15:44 Bisacodyl (Dulcolax Suppository) [address] CONSTIPATION; Start at 15:45; Stop 01/31/17 at 15:44 Ciprofloxacin 200 mg/IV Miscellaneous Supplies 100 ml @ 100 mls/hr Q12H IV Last administered on 01/04/17 03:05; Start 01/02/17 at 16:00; Stop 01/09/17 at 17:00 Docusate Sodium (Colace) 100 mg BID PO Last administered on 01/04/17 08:26; Start 01/01/17 at 21:00; Stop 01/31/17 at 20:59 Ferrous Sulfate (Ferrous Sulfate) 325 mg DAILY PO Last administered on 08:26; Start 01/02/17 at 09:00; Stop 02/01/17 at 08:59 Home Med (Med Rec Complete!) ASDIRECTED XX ; Start 01/01/17 at 16:00; Stop at 16:00; Status DC Hydralazine HCl (Apresoline) 10 mg Q6H PO Last administered on 01/04/17 06:07 ; Start 01/01/17 at 18:00; Stop 01/31/17 at 17:59 Hydrochlorothiazide (Hydrodiuril) 25 mg DAILY PO Last administered on 08:26; Start 01/02/17 at 09:00; Stop 02/01/17 at 08:59 Levothyroxine Sodium (Synthroid) 88 mcg DAILY@06 PO Last administered on 06:07; Start 01/02/17 at 06:00; Stop 02/01/17 at 05:59 Magnesium Hydroxide (Milk Of Magnesia) 30 ml DAILYPRN PRN PO CONSTIPATION Last administered on 01/03/17 16:38; Start 01/03/17 at 16:00; Stop 02/02/17 at 15: 59 Pantoprazole Sodium (Protonix) 40 mg DAILY PO Last administered on 01/04/17 08 :26; Start 01/02/17 at 09:00; Stop 02/01/17 at 08:59 Polyethylene Glycol (Miralax) 1 pkt DAILY PO Last administered on 01/04/17 09: 15; Start 01/04/17 at 09:00; Stop 02/03/17 at 08:59 Simvastatin (Zocor) 20 mg QHS PO Last administered on 01/03/17 20:32; Start at 21:00; Stop 01/31/17 at 20:59 Sodium Biphosphate/ Sodium Phosphate (Fleet Enema) [address] CONSTIPATION; Start 01/01/17 at 15:45; Stop 01/31/17 at 15:44 Tramadol HCl (Ultram) 50 mg Q4HP PRN PO MODERATE/SEVERE PAIN (PS 5-10) Last administered on 01/04/17 03:05; Start 01/01/17 at 15:45; Stop 01/08/17 at 15:44 JAVI SMITH MD Jan 04, 2017 10:54
--- NOTE | 2017-01-04 11:17 | IPNPDOC ---
Date Seen The patient was seen on 01/04/17. 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 Patient was noted to have severely elevated hypertension and hypertensive emergency. Neurosurgery was consulted, Dr Juarez. Follow-up CT head 12/25/16 and did not indicate any further progression. Subsequently the patient was transferred to the care of LUCÍA Rojas 01/01/17. No acute medical complaints today. Pt states she does not like pureed diet and nectar thick liquids but is trying to take in more po. Denies any fevers, chills, weakness, fatigue, Headache, Chest Pain, Shortness of breath, cough, palpitations, abdominal pain, N/V/D or changes in bowel or bladder habits. Consultation is requested for medical management. PMHx/PSH: Hemorrhagic CVA Hypertension/hypertensive emergency CKD3 Iron deficiency anemia Hypothyroidism SOCHX: [facility] Marital Status: Employment: Retired Tobacco use: Denies ETOH: Occasional Illicit Drugs: Denies Advanced directives: Full code FAMHX: non contributory. ROS: As noted in HPI, otherwise 11pt ROS of systems reviewed and remarkable only for feeling fatigued with therapy. PE: GEN: 81yoF, appears stated age. Alert and oriented x 3. Pleasant, interactive. HEENT: Normocephalic, atraumatic. Sclera are nonicteric. Conjunctiva without injection. Nose midline. Moist mucous membranes. Pharynx pink and moist. Neck supple, trachea midline. CHEST: Regular rate and rhythm, +S1, +S2 LUNGS: Clear to auscultation bilaterally. No wheezes, rales, or rhonchi. ABD: Round, soft, non-tender, non-distended. +Bowel sounds throughout. No rebound or guarding. No costovertebral angle tenderness. EXT: No lower extremity edema appreciated. SKIN: [place], dry, warm. Capillary refill <2sec. No rashes. NEURO: Alert and oriented x 3. Cranial nerves III-XII are intact. Left sided weakness. CT head 12/25/16 Comparisons are 12/22/2078 12/23/2016. The right frontal lobe hematoma is again identified today measuring 3.6 x 2.6 cm, not significantly changed. There is edema surrounding the hematoma as previously. Small volume of hemorrhage is again noted in the subarachnoid space adjacent to the hematoma, unchanged. There is effacement of the right lateral ventricle and there is right to left midline shift of approximately 3.88 mm. This has increased from the 1-2 mm previously. The ventricles are otherwise normal size. No other hemorrhages are identified. There are no other interval changes CTA Head 12/23/16 Normal MRA of the head. Right frontal acute hematoma. Unchanged mild midline shift to the left side UC 01/04 RINE CULTURE Final Organism 1 PROTEUS MIRABILIS COLONY COUNT >100,000 CFU/ml TTE 12/27/16 1. No definite cardiac source of systemic embolism identified. 2. Normal left ventricle internal dimensions and wall thickness. No regional LV wall motion abnormalities. Hyperdynamic left ventricle (LV) systolic function. Left ventricular ejection fraction (LVEF) of 75% by visual estimate. Normal LV diastolic function for age. 3. Suggestive of moderate elevation of estimated right ventricle systolic pressure and pulmonary artery systolic pressure. Mild tricuspid regurgitation. 4. Moderately technically difficult echocardiogram. 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 Patient was noted to have severely elevated hypertension and hypertensive emergency. Neurosurgery was consulted, Dr Juarez. Follow-up CT head 12/25/16 and did not indicate any further progression. Subsequently the patient was transferred to the care of LUCÍA Rojas 01/01/17. 1. Right hemorrhagic CVA. Continue statin. Neurosurgery consulted, Dr Juarez. No notes available. Management as per LUCÍA Rojas. PT/OT as per LUCÍA Rojas. Speech therapy as per LUCÍA Rojas Pt with poor po intake. Request I/O, daily weight. Nutrition consult. Continue supplements. Pain control as per LUCÍA Rojas Bowel care as per LUCÍA Rojas. DVT prophylaxis. SCDs/TEDS. 2. Hypertension. Continue hydralazine 10 mg every 6 hours. Continue hydrochlorothiazide 25 mg by mouth daily. Blood pressure this a.m. is noted to be 143/67. 3. CKD3. [place] likely to be at baseline, 1.4-1.7. S/P IVF x 500cc 01/02. Monitor. 4. Iron deficiency anemia. No prior colonoscopy and system, consider colonoscopy as outpatient. Continue with iron supplement. Monitor. 5. Hypothyroidism. Continue Synthroid. 6. UTI UC Proteus mirabilis. Afebrile, no leukocytosis. IV Cipro D3. VS, I&O, 24H, Fishbone Vital Signs/I&O Vital Signs Date Time Temp Pulse Resp B/P (MAP) Pulse Ox O2 Delivery O2 Flow Rate FiO2 01/04/17 08:00 Room Air 01/04/17 06:07 143/67 01/04/17 06:00 98.7 63 19 96 I&O- Last 24 Hours up to 6 AM 01/05/17 06:00 Intake Total 80 ml Balance 80 ml Laboratory Data 24H LABS Laboratory Tests 2 01/04/17 06:52: Anion Gap 6L, Glomerular Filtration Rate 39.4, Blood Urea Nitrogen 48H, Creatinine 1.37H, Sodium Level 144, Potassium Level 4.0, Chloride Level 108H, Carbon Dioxide Level 30, Calcium Level 8.7L CBC/BMP Laboratory Tests 01/04/17 06:52 Red Blood Count 3.29 L, Mean Corpuscular Volume 95.4, Mean Corpuscular Hemoglobin 30.1, Mean Corpuscular Hemoglobin Concent 31.5 L, Red Cell Distribution Width 13.8, Calcium Level 8.7 L Microbiology Microbiology 01/02/17 Urine Culture - Final, Complete Proteus Mirabilis Alia Callahan Jan 04, 2017 11:17
[2017-01-04 14:00] VITALS: BP 140/64
[2017-01-04 17:07] VITALS: BP 155/71
[2017-01-04 20:01] VITALS: BP 156/76
[2017-01-04] MEDS: SIMVASTATIN 20 MG TAB PO SCH (21:05)
[2017-01-05] MEDS: **hydrALAZINE** 10 MG TAB PO SCH ×5 (00:06→23:54)
[2017-01-05] MEDS: CIPROFLOXACIN 200 MG in APPROPRIATE DILUENT 1 EA IV SCH ×2 (03:49→16:33)
[2017-01-05] MEDS: LEVOTHYROXINE 88MCG TABLET (0.088 MG) PO SCH (05:59)
[2017-01-05 06:00] VITALS: BP 152/70
[2017-01-05] MEDS: hydroCHLOROthiazide 25 MG TAB PO SCH (08:50)
[2017-01-05] MEDS: MIRALAX *UNIT DOSE* 17GM PACKET PO SCH (08:51)
[2017-01-05] MEDS: DOCUSATE SODIUM 100 MG CAP PO SCH ×2 (08:51→21:26)
[2017-01-05] MEDS: FERROUS SULFATE 325MG TAB PO SCH (08:51)
[2017-01-05] MEDS: PANTOPRAZOLE 40MG TAB (PROTONIX) PO SCH (08:51)
[2017-01-05 14:00] VITALS: BP 152/76
[2017-01-05] MEDS: ACETAMINOPHEN TAB 650MG DOSE (2X325MG) PO PRN (18:46)
[2017-01-05 20:01] VITALS: BP 132/62
[2017-01-05] MEDS: SIMVASTATIN 20 MG TAB PO SCH (21:26)
[2017-01-06] MEDS: CIPROFLOXACIN 200 MG in APPROPRIATE DILUENT 1 EA IV SCH ×2 (03:55→16:11)
[2017-01-06 06:00] VITALS: BP_SYST 142; BP_DIAS 16; BP_DIAS 80
[2017-01-06] MEDS: LEVOTHYROXINE 88MCG TABLET (0.088 MG) PO SCH (06:07)
[2017-01-06] MEDS: **hydrALAZINE** 10 MG TAB PO SCH ×4 (06:08→23:39)
[2017-01-06] MEDS: hydroCHLOROthiazide 25 MG TAB PO SCH (09:24)
[2017-01-06] MEDS: PANTOPRAZOLE 40MG TAB (PROTONIX) PO SCH (09:24)
[2017-01-06] MEDS: FERROUS SULFATE 325MG TAB PO SCH (09:24)
[2017-01-06] MEDS: MIRALAX *UNIT DOSE* 17GM PACKET PO SCH (09:24)
[2017-01-06] MEDS: DOCUSATE SODIUM 100 MG CAP PO SCH ×2 (09:25→20:53)
[2017-01-06] MEDS: traMADol 50 MG TAB PO PRN (13:32)
[2017-01-06 14:45] VITALS: BP 120/72
[2017-01-06] MEDS: SIMVASTATIN 20 MG TAB PO SCH (20:53)
[2017-01-06 21:00] VITALS: BP 122/60
[2017-01-07] MEDS: CIPROFLOXACIN 200 MG in APPROPRIATE DILUENT 1 EA IV SCH (04:05)
[2017-01-07] MEDS: LEVOTHYROXINE 88MCG TABLET (0.088 MG) PO SCH (05:45)
[2017-01-07] MEDS: **hydrALAZINE** 10 MG TAB PO SCH ×3 (05:45→17:37)
[2017-01-07 05:50] VITALS: BP 134/64
[2017-01-07] MEDS: PANTOPRAZOLE 40MG TAB (PROTONIX) PO SCH (08:47)
[2017-01-07] MEDS: FERROUS SULFATE 325MG TAB PO SCH (08:47)
[2017-01-07] MEDS: DOCUSATE SODIUM 100 MG CAP PO SCH ×2 (08:48→20:48)
[2017-01-07] MEDS: MIRALAX *UNIT DOSE* 17GM PACKET PO SCH (08:48)
[2017-01-07] MEDS: hydroCHLOROthiazide 25 MG TAB PO SCH (08:49)
[2017-01-07 12:00] VITALS: BP 135/79
--- NOTE | 2017-01-07 12:26 | IPNPDOC ---
Senior Grants Officer Progress Note DATE OF SERVICE: 01/07/17 DATE OF ADMISSION: Jan 01, 2017 at 15:30 INPATIENT REHABILITATION ADMISSION DAY: #7 SUBJECTIVE: The patient is an 81-year-old white female who on 12/22/2016 presented to [facility] emergency room with severe hypertension and left sided motor findings. CT scan of the head showed the intracranial and intraparenchymal hemorrhage, which was somewhat slightly greater on repeat CT head of 12/25/2016, as far as midline shift. Patient admitted for trial of neuro rehabilitation with physical, occupational and speech language therapies. Medicine team to watch fluids, renal function, anemia this weekend. Patient without complaints, except therapy tires her out. ALLERGIES: See Below MEDICATIONS: Reviewed, see below. OBJECTIVE: VITAL SIGNS: Please see below. PHYSICAL EXAMINATION: GENERAL: Short overweight elderly white female in no acute distress in good spirits and alert and well oriented. HEENT: Further improvement in left facial droop to near normal range/tone with tongue essentially midline and improvement in speech quality showing less dysarthria. CARDIOVASCULAR: Regular rate and rhythm with normal S1-S2 without S3-S4 murmurs or rubs. 2/4 bilateral radial pulses. LUNGS: All bosch clear to auscultation. ABDOMEN: Bowel sounds present in all quadrants. NEUROLOGICAL: Patient is alert and oriented 4. Speech is clear coherent and appropriate with minimal dysarthria. Right body motor intact. Fair to good minus left lower extremity motor. 3-/5 left shoulder girdle and 2+ biceps today. Tone remains in left upper and lower extremity and the classic hemiparetic pattern. facial and oral control much improved with almost no droop on left today. SKIN: Grossly intact. LABORATORY DATA: Reviewed. Please see below. MICROBIOLOGY: Please see below. IMAGING: No new imaging. DVT prophylaxis ordered?: Patient currently using ANGELICA hose and sequential stockings with medications limited by risk of progressing the internal cranial hemorrhage. ASSESSMENT AND PLAN: 1. 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 Patient starting program today of physical, occupational and speech therapy of 3 hours of therapy per day. Patient does seem to be improving daily and it'll will be adjusting to see the impact of the increased therapy with her. Currently anticipating 17-21 day admission however hemorrhagic CVAs sometimes progress much more rapidly and we will assess tomorrow at team rounds and rowing forward. Patient has a very supportive family. Her attention, energy facial muscular control are improved this morning. Patient is showing daily progression in oral control and swallowing with improving motor function and sensory awareness. She is compensating for the visual sensory deficits as well. Left Lower Extremity motor control is also improving. 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 Left Upper Extremity with slower progress, but today had some biceps twitch with the grade 1 to 2-/5 left shoulder muscles in OT session with 2-/5 biceps today. Patient participating well and progressing. Anticipated Discharge Date is 01/22/17 will be reviewed in team. REHAB. TEAM ROUNDS: Marked gain in rate of improvement in the last 4 days with LUE, Facial and LLE as well as dysarthria improvement. Patient tired today, and seems to sleep better without family staying over. Swallowing seems to be improving as well and will look to do Modified Barium Swallow on Saturday. W/ C mobility and gaiting improved Contact Guard Assist for 125 and 40 feet respectively. Most ADL's now Min. Assist to Contact Guard Assist. Anticipated Date of Discharge still 01/22/17, but will reassess at next Team and look to have Patient/Family Conference within about a week along with more family training. 2. Acute on chronic renal disease: Patient presents 01/04/17 with BUN and creatinine that are 48 & 1.37, and improved after the fluid bolus with an estimated GFR of 39.4 up from 32.7. BMP tomorrow as we continue to follow. 3. Anemia H&H is 9.9 and 31.49, slight decline likely from fluid boluses. We will continue to observe with CBC tomorrow. 4. Constipation: No BM since 12/31/16, then 2 BMs and 1 Saturday, but none over the weekend. We will watch. 5. UTI: Uc&s shows Proteus Mirabilis that was present at admission. It is sensitive to Levaquin, so Cipro IV should work. On CBC the WBC was normal and patient without fevers. Changing today to Cipro 250 mg bid for 4 more doses. I will d/c IV line. I will start trial of Flomax 0.4mg QHS for retention. TIME SPENT: Chart Review, examination and documentation require greater than 25 minutes. Allergies Coded Allergies: Amoxicillin (Verified Allergy, Mild, rash, 12/22/16) rash Chocolate (Verified Allergy, Mild, itching, 12/27/16) Vital Signs Vital Signs Date Time Temp Pulse Resp B/P (MAP) Pulse Ox O2 Delivery O2 Flow Rate FiO2 01/07/17 05:50 97.4 65 16 134/64 (87) 96 Room Air Microbiology Microbiology 01/02/17 Urine Culture - Final, Complete Proteus Mirabilis Current Medications Current Medications Current Medications Acetaminophen (Tylenol Tab) 650 mg Q6HP PRN PO PAIN OR FEVER Last administered on 01/05/17 18:46; Start 01/01/17 at 15:45; Stop 01/31/17 at 15:44 Bisacodyl (Dulcolax Suppository) 10 mg DAILYPRN PRN DC CONSTIPATION; Start at 15:45; Stop 01/31/17 at 15:44 Ciprofloxacin (Cipro) 250 mg BID@06,18 PO ; Start 01/07/17 at 18:00; Stop at 06:01 Ciprofloxacin 200 mg/IV Miscellaneous Supplies 100 ml @ 100 mls/hr Q12H IV Last administered on 01/07/17 04:05; Start 01/02/17 at 16:00; Stop 01/07/17 at 11:21; Status DC Docusate Sodium (Colace) 100 mg BID PO Last administered on 01/07/17 08:48; Start 01/01/17 at 21:00; Stop 01/31/17 at 20:59 Ferrous Sulfate (Ferrous Sulfate) 325 mg DAILY PO Last administered on 08:47; Start 01/02/17 at 09:00; Stop 02/01/17 at 08:59 Home Med (Med Rec Complete!) ASDIRECTED XX ; Start 01/01/17 at 16:00; Stop at 16:00; Status DC Hydralazine HCl (Apresoline) 10 mg Q6H PO Last administered on 01/07/17 05:45 ; Start 01/01/17 at 18:00; Stop 01/31/17 at 17:59 Hydrochlorothiazide (Hydrodiuril) 25 mg DAILY PO Last administered on 08:49; Start 01/02/17 at 09:00; Stop 02/01/17 at 08:59 Levothyroxine Sodium (Synthroid) 88 mcg DAILY@06 PO Last administered on 05:45; Start 01/02/17 at 06:00; Stop 02/01/17 at 05:59 Magnesium Hydroxide (Milk Of Magnesia) 30 ml DAILYPRN PRN PO CONSTIPATION Last administered on 01/03/17 16:38; Start 01/03/17 at 16:00; Stop 02/02/17 at 15: 59 Pantoprazole Sodium (Protonix) 40 mg DAILY PO Last administered on 01/07/17 08 :47; Start 01/02/17 at 09:00; Stop 02/01/17 at 08:59 Polyethylene Glycol (Miralax) 1 pkt DAILY PO Last administered on 01/07/17 08: 48; Start 01/04/17 at 09:00; Stop 02/03/17 at 08:59 Simvastatin (Zocor) 20 mg QHS PO Last administered on 01/06/17 20:53; Start at 21:00; Stop 01/31/17 at 20:59 Sodium Biphosphate/ Sodium Phosphate (Fleet Enema) 1 ea DAILYPRN PRN DC CONSTIPATION; Start 01/01/17 at 15:45; Stop 01/31/17 at 15:44 Tamsulosin HCl (Flomax) 0.4 mg QHS PO ; Start 01/07/17 at 21:00; Stop 02/06/17 at 20:59 Tramadol HCl (Ultram) 50 mg Q4HP PRN PO MODERATE/SEVERE PAIN (PS 5-10) Last administered on 01/06/17 13:32; Start 01/01/17 at 15:45; Stop 01/14/17 at 23:55 JAVI SMITH MD Jan 07, 2017 12:26
[2017-01-07 17:38] VITALS: BP 109/55
[2017-01-07] MEDS: CIPROFLOXACIN 250 MG TAB PO SCH (17:40)
[2017-01-07 20:00] VITALS: BP 133/61
[2017-01-07] MEDS: TAMSULOSIN 0.4 MG CAP PO SCH (20:48)
[2017-01-07] MEDS: SIMVASTATIN 20 MG TAB PO SCH (20:48)
[2017-01-08] MEDS: **hydrALAZINE** 10 MG TAB PO SCH ×4 (00:14→18:27)
[2017-01-08 06:00] VITALS: BP 139/66
[2017-01-08] MEDS: CIPROFLOXACIN 250 MG TAB PO SCH ×2 (06:56→18:26)
[2017-01-08] MEDS: LEVOTHYROXINE 88MCG TABLET (0.088 MG) PO SCH (06:56)
[2017-01-08 07:11] LABS: MEAN CORPUSCULAR HEMOGLOBIN 30.2 pg (27.0-33.0); MEAN CORPUSCULAR VOLUME 94.3 fl (80.0-96.0); RED CELL DISTRIBUTION WIDTH 13.5 % (11.5-14.5); WHITE BLOOD COUNT 6.8 10^3/uL (4.0-10.0)
[2017-01-08 07:46] LABS: CALCIUM LEVEL 9.4 MG/DL (8.8-10.2); CREATININE FOR GFR 1.68 MG/DL (0.55-1.02); GLOMERULAR FILTRATION RATE 31.1 (>32); POTASSIUM SERUM 3.6 MEQ/L (3.5-5.1)
[2017-01-08] MEDS: hydroCHLOROthiazide 25 MG TAB PO SCH (08:36)
[2017-01-08] MEDS: DOCUSATE SODIUM 100 MG CAP PO SCH ×2 (08:36→20:51)
[2017-01-08] MEDS: MIRALAX *UNIT DOSE* 17GM PACKET PO SCH (08:37)
[2017-01-08] MEDS: FERROUS SULFATE 325MG TAB PO SCH (08:37)
[2017-01-08] MEDS: PANTOPRAZOLE 40MG TAB (PROTONIX) PO SCH (08:37)
--- NOTE | 2017-01-08 10:53 | IPNPDOC ---
Date Seen The patient was seen on 01/07/17. 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 Patient was noted to have severely elevated hypertension and hypertensive emergency. Neurosurgery was consulted, Dr Juarez. Follow-up CT head 12/25/16 and did not indicate any further progression. Subsequently the patient was transferred to the care of TAM Rojas 01/01/17. No acute medical complaints today. Pt with poor po intake on pureed diet and nectar thick liquids, ST following. Denies any fevers, chills, weakness, fatigue, Headache, Chest Pain, Shortness of breath, cough, palpitations, abdominal pain, N/V/D or changes in bowel or bladder habits. PMHx/PSH: Hemorrhagic CVA Hypertension/hypertensive emergency CKD3 Iron deficiency anemia Hypothyroidism PE: GEN: 81yoF, appears stated age. Alert and oriented x 3. Pleasant, interactive. HEENT: Normocephalic, atraumatic. Sclera are nonicteric. Conjunctiva without injection. Nose midline. Moist mucous membranes. Pharynx pink and moist. Neck supple, trachea midline. CHEST: Regular rate and rhythm, +S1, +S2 LUNGS: Clear to auscultation bilaterally. No wheezes, rales, or rhonchi. ABD: Round, soft, non-tender, non-distended. +Bowel sounds throughout. No rebound or guarding. No costovertebral angle tenderness. EXT: No lower extremity edema appreciated. SKIN: [place], dry, warm. Capillary refill <2sec. No rashes. NEURO: Alert and oriented x 3. Cranial nerves III-XII are intact. Left sided weakness. CT head 12/25/16 Comparisons are 12/22/2078 12/23/2016. The right frontal lobe hematoma is again identified today measuring 3.6 x 2.6 cm, not significantly changed. There is edema surrounding the hematoma as previously. Small volume of hemorrhage is again noted in the subarachnoid space adjacent to the hematoma, unchanged. There is effacement of the right lateral ventricle and there is right to left midline shift of approximately 3.88 mm. This has increased from the 1-2 mm previously. The ventricles are otherwise normal size. No other hemorrhages are identified. There are no other interval changes CTA Head 12/23/16 Normal MRA of the head. Right frontal acute hematoma. Unchanged mild midline shift to the left side UC 01/04 RINE CULTURE Final Organism 1 PROTEUS MIRABILIS COLONY COUNT >100,000 CFU/ml TTE 12/27/16 1. No definite cardiac source of systemic embolism identified. 2. Normal left ventricle internal dimensions and wall thickness. No regional LV wall motion abnormalities. Hyperdynamic left ventricle (LV) systolic function. Left ventricular ejection fraction (LVEF) of 75% by visual estimate. Normal LV diastolic function for age. 3. Suggestive of moderate elevation of estimated right ventricle systolic pressure and pulmonary artery systolic pressure. Mild tricuspid regurgitation. 4. Moderately technically difficult echocardiogram. A&P: 81year oldF with a past medical history significant for Rt hemorrhagic CVA related to uncontrolled hypertension admitted to [facility] 12/22/16 with left facial droop, left hemiparesis, dysarthria and dysphagia. Patient was noted to have severely elevated hypertension and hypertensive emergency. Neurosurgery was consulted, Dr Juarez. Follow-up CT head 12/25/16 and did not indicate any further progression. Subsequently the patient was transferred to the care of LUCÍA Rojas 01/01/17. 1. Right hemorrhagic CVA. Continue statin. Neurosurgery consulted, Dr Juarez. No notes available. Management as per LUCÍA Rojas. PT/OT as per LUCÍA Rojas. Speech therapy as per LUCÍA Rojas Pt with poor po intake. Request I/O, daily weight. Nutrition consult. Continue supplements. Pain control as per LUCÍA Rojas Bowel care as per LUCÍA Rojas. DVT prophylaxis. SCDs/TEDS. 2. Hypertension. Continue hydralazine 10 mg every 6 hours. Hold hydrochlorothiazide 25 mg by mouth daily, Pt with poor po intake. Blood pressure this a.m. is noted to be 139/66. 3. CKD3. Baseline 1.4-1.7. S/P IVF x 500cc 01/02. SCr noted to be 1.68. HCTZ held for now. 4. Iron deficiency anemia. No prior colonoscopy and system, consider colonoscopy as outpatient. Continue with iron supplement. Monitor. 5. Hypothyroidism. Continue Synthroid. 6. UTI UC Proteus mirabilis. Afebrile, no leukocytosis. Cipro D6/7. VS, I&O, 24H, Fishbone Vital Signs/I&O Vital Signs Date Time Temp Pulse Resp B/P (MAP) Pulse Ox O2 Delivery O2 Flow Rate FiO2 01/08/17 09:00 Room Air 01/08/17 06:56 139/66 01/08/17 06:00 97.8 70 18 94 I&O- Last 24 Hours up to 6 AM 01/09/17 06:00 Intake Total 60 ml Balance 60 ml Laboratory Data 24H LABS Laboratory Tests 2 01/08/17 06:58: Anion Gap 7L, Glomerular Filtration Rate 31.1L, Blood Urea Nitrogen 36H, Creatinine 1.68H, Sodium Level 141, Potassium Level 3.6, Chloride Level 103, Carbon Dioxide Level 31, Calcium Level 9.4 CBC/BMP Laboratory Tests 01/08/17 06:58 Calcium Level 9.4 01/08/17 06:59 Red Blood Count 3.51 L, Mean Corpuscular Volume 94.3, Mean Corpuscular Hemoglobin 30.2, Mean Corpuscular Hemoglobin Concent 32.0, Red Cell Distribution Width 13.5 Microbiology Microbiology 01/02/17 Urine Culture - Final, Complete Proteus Mirabilis Alia Callahan Jan 08, 2017 10:53 MAYITO RAMAN MD Feb 03, 2017 18:22
--- NOTE | 2017-01-08 11:55 | IPNPDOC ---
[employer] Progress Note DATE OF SERVICE: 01/08/17 DATE OF ADMISSION: Jan 01, 2017 at 15:30 INPATIENT REHABILITATION ADMISSION DAY: #8 SUBJECTIVE: The patient is an 81-year-old white female who on 12/22/2016 presented to [facility] emergency room with severe hypertension and left sided motor findings. CT scan of the head showed the intracranial and intraparenchymal hemorrhage, which was somewhat slightly greater on repeat CT head of 12/25/2016, as far as midline shift. Patient admitted for trial of neuro rehabilitation with physical, occupational and speech language therapies. Medicine team to watch fluids, renal function, anemia this weekend. Patient without complaints, except therapy tires her out. ALLERGIES: See Below MEDICATIONS: Reviewed, see below. OBJECTIVE: VITAL SIGNS: Please see below. PHYSICAL EXAMINATION: GENERAL: Short overweight elderly white female in no acute distress in good spirits and alert and well oriented. HEENT: Further improvement in left facial droop to near normal range/tone with tongue essentially midline and improvement in speech quality showing less dysarthria. CARDIOVASCULAR: Regular rate and rhythm with normal S1-S2 without S3-S4 murmurs or rubs. 2/4 bilateral radial pulses. LUNGS: All bosch clear to auscultation. ABDOMEN: Bowel sounds present in all quadrants. NEUROLOGICAL: Patient is alert and oriented 4. Speech is clear coherent and appropriate with minimal dysarthria. Right body motor intact. Fair to good minus left lower extremity motor. 3-/5 left shoulder girdle and 2+ biceps today. Tone remains in left upper and lower extremity and the classic hemiparetic pattern. facial and oral control much improved with almost no droop on left today. SKIN: Grossly intact. LABORATORY DATA: Reviewed. Please see below. MICROBIOLOGY: Please see below. IMAGING: No new imaging. DVT prophylaxis ordered?: Patient currently using ANGELICA hose and sequential stockings with medications limited by risk of progressing the internal cranial hemorrhage. ASSESSMENT AND PLAN: 1. 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 Patient starting program today of physical, occupational and speech therapy of 3 hours of therapy per day. Patient does seem to be improving daily and it'll will be adjusting to see the impact of the increased therapy with her. Currently anticipating 17-21 day admission however hemorrhagic CVAs sometimes progress much more rapidly and we will assess tomorrow at team rounds and rowing forward. Patient has a very supportive family. Her attention, energy facial muscular control are improved this morning. Patient is showing daily progression in oral control and swallowing with improving motor function and sensory awareness. She is compensating for the visual sensory deficits as well. Left Lower Extremity motor control is also improving. 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 Left Upper Extremity with slower progress, but today had some biceps twitch with the grade 1 to 2-/5 left shoulder muscles in OT session with 2-/5 biceps today. Patient participating well and progressing. Anticipated Discharge Date is 01/22/17 and we will be reviewed in team on . 2. Acute on chronic renal disease: Patient presents on 01/08/17 with BUN and creatinine that are 36 & 1.68. We continue to follow. 3. Anemia H&H is 10.6 and 33.1 today on 01/08/17. We will continue to observe. 4. Constipation: No BM since 12/31/16, then 2 BMs and 1 Saturday, but none over the weekend. We will watch. 5. UTI: Uc&s shows Proteus Mirabilis that was present at admission. It is sensitive to Levaquin, so Cipro IV should work. On CBC the WBC was normal and patient without fevers. Cipro 250 mg bid for 2 more doses. I will start trial of Flomax 0.4mg QHS for retention. TIME SPENT: Chart Review, examination and documentation require greater than 25 minutes. Allergies Coded Allergies: Amoxicillin (Verified Allergy, Mild, rash, 12/22/16) rash Chocolate (Verified Allergy, Mild, itching, 12/27/16) Vital Signs Vital Signs Date Time Temp Pulse Resp B/P (MAP) Pulse Ox O2 Delivery O2 Flow Rate FiO2 01/08/17 09:00 Room Air 01/08/17 06:56 139/66 01/08/17 06:00 97.8 70 18 94 Laboratory Data CBC/BMP Laboratory Tests 01/08/17 06:58 Calcium Level 9.4 01/08/17 06:59 Red Blood Count 3.51 L, Mean Corpuscular Volume 94.3, Mean Corpuscular Hemoglobin 30.2, Mean Corpuscular Hemoglobin Concent 32.0, Red Cell Distribution Width 13.5 Labs 24H Laboratory Tests 2 01/08/17 06:58: Anion Gap 7L, Glomerular Filtration Rate 31.1L, Blood Urea Nitrogen 36H, Creatinine 1.68H, Sodium Level 141, Potassium Level 3.6, Chloride Level 103, Carbon Dioxide Level 31, Calcium Level 9.4 Microbiology Microbiology 01/02/17 Urine Culture - Final, Complete Proteus Mirabilis Current Medications Current Medications Current Medications Acetaminophen (Tylenol Tab) 650 mg Q6HP PRN PO PAIN OR FEVER Last administered on 01/05/17 18:46; Start 01/01/17 at 15:45; Stop 01/31/17 at 15:44 Bisacodyl (Dulcolax Suppository) 10 mg DAILYPRN PRN [place] CONSTIPATION; Start at 15:45; Stop 01/31/17 at 15:44 Ciprofloxacin (Cipro) 250 mg BID@06,18 PO Last administered on 01/08/17 06:56 ; Start 01/07/17 at 18:00; Stop 01/09/17 at 06:01 Ciprofloxacin 200 mg/IV Miscellaneous Supplies 100 ml @ 100 mls/hr Q12H IV Last administered on 01/07/17 04:05; Start 01/02/17 at 16:00; Stop 01/07/17 at 11:21; Status DC Docusate Sodium (Colace) 100 mg BID PO Last administered on 01/08/17 08:36; Start 01/01/17 at 21:00; Stop 01/31/17 at 20:59 Ferrous Sulfate (Ferrous Sulfate) 325 mg DAILY PO Last administered on 08:37; Start 01/02/17 at 09:00; Stop 02/01/17 at 08:59 Home Med (Med Rec Complete!) ASDIRECTED XX ; Start 01/01/17 at 16:00; Stop at 16:00; Status DC Hydralazine HCl (Apresoline) 10 mg Q6H PO Last administered on 01/08/17 06:56 ; Start 01/01/17 at 18:00; Stop 01/31/17 at 17:59 Hydrochlorothiazide (Hydrodiuril) 25 mg DAILY PO Last administered on 08:36; Start 01/02/17 at 09:00; Stop 01/08/17 at 10:14; Status DC Levothyroxine Sodium (Synthroid) 88 mcg DAILY@06 PO Last administered on 06:56; Start 01/02/17 at 06:00; Stop 02/01/17 at 05:59 Magnesium Hydroxide (Milk Of Magnesia) 30 ml DAILYPRN PRN PO CONSTIPATION Last administered on 01/03/17 16:38; Start 01/03/17 at 16:00; Stop 02/02/17 at 15: 59 Pantoprazole Sodium (Protonix) 40 mg DAILY PO Last administered on 01/08/17 08 :37; Start 01/02/17 at 09:00; Stop 02/01/17 at 08:59 Polyethylene Glycol (Miralax) 1 pkt DAILY PO Last administered on 01/08/17 08: 37; Start 01/04/17 at 09:00; Stop 02/03/17 at 08:59 Simvastatin (Zocor) 20 mg QHS PO Last administered on 01/07/17 20:48; Start at 21:00; Stop 01/31/17 at 20:59 Sodium Biphosphate/ Sodium Phosphate (Fleet Enema) 1 ea DAILYPRN PRN NM CONSTIPATION; Start 01/01/17 at 15:45; Stop 01/31/17 at 15:44 Tamsulosin HCl (Flomax) 0.4 mg QHS PO Last administered on 01/07/17 20:48; Start 01/07/17 at 21:00; Stop 02/06/17 at 20:59 Tramadol HCl (Ultram) 50 mg Q4HP PRN PO MODERATE/SEVERE PAIN (PS 5-10) Last administered on 01/06/17 13:32; Start 01/01/17 at 15:45; Stop 01/14/17 at 23:55 JAVI SMITH MD Jan 08, 2017 11:55
[2017-01-08 14:00] VITALS: BP 125/60
[2017-01-08 20:00] VITALS: BP 127/56
[2017-01-08] MEDS: SIMVASTATIN 20 MG TAB PO SCH (20:51)
[2017-01-08] MEDS: TAMSULOSIN 0.4 MG CAP PO SCH (20:51)
[2017-01-08] MEDS: ACETAMINOPHEN TAB 650MG DOSE (2X325MG) PO PRN (20:51)
[2017-01-09] MEDS: **hydrALAZINE** 10 MG TAB PO SCH ×4 (00:10→17:07)
[2017-01-09 06:00] VITALS: BP 120/57
[2017-01-09] MEDS: CIPROFLOXACIN 250 MG TAB PO SCH (06:31)
[2017-01-09] MEDS: LEVOTHYROXINE 88MCG TABLET (0.088 MG) PO SCH (06:31)
[2017-01-09] MEDS: FERROUS SULFATE 325MG TAB PO SCH (08:36)
[2017-01-09] MEDS: MIRALAX *UNIT DOSE* 17GM PACKET PO SCH (08:36)
[2017-01-09] MEDS: PANTOPRAZOLE 40MG TAB (PROTONIX) PO SCH (08:36)
[2017-01-09] MEDS: DOCUSATE SODIUM 100 MG CAP PO SCH ×2 (08:36→20:50)
[2017-01-09] MEDS ORDERED: MAALOX 30 ML SUSP *UDC PO PRN (10:00)
--- NOTE | 2017-01-09 10:33 | IPNPDOC ---
[employer] Progress Note DATE OF SERVICE: 01/09/17 DATE OF ADMISSION: Jan 01, 2017 at 15:30 INPATIENT REHABILITATION ADMISSION DAY: #9 SUBJECTIVE: The patient is an 81-year-old white female who on 12/22/2016 presented to [facility] emergency room with severe hypertension and left sided motor findings. CT scan of the head showed the intracranial and intraparenchymal hemorrhage of the Right Frontal Lobe with midline shift that increased a little over the next 3 days. Patient admitted for trial of neuro rehabilitation with physical, occupational and speech language therapies. Medicine team to watch fluids, renal function, anemia this weekend. Patient without complaints today with better sleep as everyone went home last night. Patient is a little anxious about the Modified Barium Swallow today. ALLERGIES: See Below MEDICATIONS: Reviewed, see below. OBJECTIVE: VITAL SIGNS: Please see below. PHYSICAL EXAMINATION: GENERAL: Short overweight elderly white female in no acute distress in good spirits and alert and well oriented. HEENT: Minimal left facial droop with slight left tongue deviation and speech quality shows less dysarthria daily. CARDIOVASCULAR: Regular rate and rhythm with normal S1-S2 without S3-S4 murmurs or rubs. 2/4 bilateral radial pulses. LUNGS: All bosch clear to auscultation. ABDOMEN: Non-tender without masses and normal bowel sounds present in all quadrants. NEUROLOGICAL: Patient is alert and oriented 4. Speech is clear coherent and appropriate with minimal dysarthria. Right body motor intact. Fair to good minus left lower extremity motor. 3-/5 left shoulder girdle and 2+ biceps/ 2- triceps today. Tone remains in left upper and lower extremity and the classic hemiparetic pattern. facial and oral control much improved with almost no droop on left today. SKIN: Grossly intact. LABORATORY DATA: Reviewed. Please see below. MICROBIOLOGY: Please see below. IMAGING: No new imaging. DVT prophylaxis ordered?: Patient currently using ANGELICA hose and sequential stockings with medications limited by risk of progressing the internal cranial hemorrhage. ASSESSMENT AND PLAN: 1. 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 Patient starting program today of physical, occupational and speech therapy of 3 hours of therapy per day. Patient does seem to be improving daily and it'll will be adjusting to see the impact of the increased therapy with her. Currently anticipating 17-21 day admission however hemorrhagic CVAs sometimes progress much more rapidly and we will assess tomorrow at team rounds and rowing forward. Patient has a very supportive family. Her attention, energy facial muscular control are improved this morning. Patient is showing daily progression in oral control and swallowing with improving motor function and sensory awareness. She is compensating for the visual sensory deficits as well. Left Lower Extremity motor control is also improving. 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 Left Upper Extremity with slower progress. Patient participating well and progressing. Anticipated Discharge Date is 01/22/17 and this will be reviewed in team on . 2. Acute on chronic renal disease: Patient presents on 01/08/17 with BUN and creatinine that are 36 & 1.68. Ms. Callahan has stopped the HCTZ. We continue to follow. 3. Anemia H&H is 10.6 and 33.1 on 01/08/17. We will continue to observe. 4. Constipation: Patient with some regularity developing. We will continue to watch. 5. UTI: Uc&s shows Proteus Mirabilis that was present at admission. It is sensitive to Levaquin, so Cipro IV should work. On CBC the WBC was normal and patient without fevers. Patient completing Cipro trial. I have started trial of Flomax 0.4mg QHS for retention that appears to be helping. TIME SPENT: Chart Review, examination and documentation require greater than 25 minutes. Allergies Coded Allergies: Amoxicillin (Verified Allergy, Mild, rash, 12/22/16) rash Chocolate (Verified Allergy, Mild, itching, 12/27/16) Vital Signs Vital Signs Date Time Temp Pulse Resp B/P (MAP) Pulse Ox O2 Delivery O2 Flow Rate FiO2 01/09/17 08:00 Room Air 01/09/17 06:31 120/57 01/09/17 06:00 97.9 78 18 95 Microbiology Microbiology 01/02/17 Urine Culture - Final, Complete Proteus Mirabilis Current Medications Current Medications Current Medications Acetaminophen (Tylenol Tab) 650 mg Q6HP PRN PO PAIN OR FEVER Last administered on 01/08/17t 20:51; Start 01/01/17 at 15:45; Stop 01/31/17 at 15:44 Bisacodyl (Dulcolax Suppository) 10 mg DAILYPRN PRN [place] CONSTIPATION; Start at 15:45; Stop 01/31/17 at 15:44 Ciprofloxacin (Cipro) 250 mg BID@06,18 PO Last administered on 01/09/17 06:31 ; Start 01/07/17 at 18:00; Stop 01/09/17 at 06:01; Status DC Ciprofloxacin 200 mg/IV Miscellaneous Supplies 100 ml @ 100 mls/hr Q12H IV Last administered on 01/07/17 04:05; Start 01/02/17 at 16:00; Stop 01/07/17 at 11:21; Status DC Docusate Sodium (Colace) 100 mg BID PO Last administered on 01/09/17 08:36; Start 01/01/17 at 21:00; Stop 01/31/17 at 20:59 Ferrous Sulfate (Ferrous Sulfate) 325 mg DAILY PO Last administered on 08:36; Start 01/02/17 at 09:00; Stop 02/01/17 at 08:59 Home Med (Med Rec Complete!) ASDIRECTED XX ; Start 01/01/17 at 16:00; Stop at 16:00; Status DC Hydralazine HCl (Apresoline) 10 mg Q6H PO Last administered on 01/09/17 06:31 ; Start 01/01/17 at 18:00; Stop 01/31/17 at 17:59 Hydrochlorothiazide (Hydrodiuril) 25 mg DAILY PO Last administered on 08:36; Start 01/02/17 at 09:00; Stop 01/08/17 at 10:14; Status DC Levothyroxine Sodium (Synthroid) 88 mcg DAILY@06 PO Last administered on 06:31; Start 01/02/17 at 06:00; Stop 02/01/17 at 05:59 Magnesium Hydroxide (Milk Of Magnesia) 30 ml DAILYPRN PRN PO CONSTIPATION Last administered on 01/03/17 16:38; Start 01/03/17 at 16:00; Stop 02/02/17 at 15: 59 Pantoprazole Sodium (Protonix) 40 mg DAILY PO Last administered on 01/09/17 08 :36; Start 01/02/17 at 09:00; Stop 02/01/17 at 08:59 Polyethylene Glycol (Miralax) 1 pkt DAILY PO Last administered on 01/09/17 08: 36; Start 01/04/17 at 09:00; Stop 02/03/17 at 08:59 Simvastatin (Zocor) 20 mg QHS PO Last administered on 01/08/17 20:51; Start at 21:00; Stop 01/31/17 at 20:59 Sodium Biphosphate/ Sodium Phosphate (Fleet Enema) 1 ea DAILYPRN PRN NE CONSTIPATION; Start 01/01/17 at 15:45; Stop 01/31/17 at 15:44 Tamsulosin HCl (Flomax) 0.4 mg QHS PO Last administered on 01/08/17 20:51; Start 01/07/17 at 21:00; Stop 02/06/17 at 20:59 Tramadol HCl (Ultram) 50 mg Q4HP PRN PO MODERATE/SEVERE PAIN (PS 5-10) Last administered on 01/06/17 13:32; Start 01/01/17 at 15:45; Stop 01/14/17 at 23:55 JAVI SMITH MD Jan 09, 2017 10:33
[2017-01-09 11:14] VITALS: BP 125/65
[2017-01-09] MEDS ORDERED: E-Z-PAQUE 96% w/w SUSP 176GM BTL As Ordered ONE (13:46)
[2017-01-09] MEDS ORDERED: VARIBAR PUDDING 40% w/v 230ML TUBE As Ordered ONE (13:46)
[2017-01-09] MEDS ORDERED: VARIBAR NECTAR 40% w/v 240ML SUSP BTL As Ordered ONE (13:46)
--- NOTE | 2017-01-09 16:33 | REP ---
MODIFIED BARIUM SWALLOW: History: Dysphagia. Right frontal CVA. Findings: Lateral CINE fluoroscopy is provided to the speech pathologist while the patient swallowed varying consistencies of barium labeled material. With thin liquid barium there was moderate laryngeal penetration, but no tracheal aspiration. There was some intraoral hesitancy and pooling in the hypopharynx before initiation of laryngeal elevation. Laryngeal penetration and reflux was observed also with head turning and chin tipping maneuvers with the thinner barium. Fluoroscopy time is 1 minute 21 seconds. Signed by Yinka Gutiérrez MD 01/09/2017 05:04 P
[2017-01-09 17:06] VITALS: BP 130/70
[2017-01-09 20:30] VITALS: BP 118/58
[2017-01-09] MEDS: ACETAMINOPHEN TAB 650MG DOSE (2X325MG) PO PRN (20:50)
[2017-01-09] MEDS: TAMSULOSIN 0.4 MG CAP PO SCH (20:50)
[2017-01-09] MEDS: SIMVASTATIN 20 MG TAB PO SCH (20:50)
[2017-01-10] MEDS: **hydrALAZINE** 10 MG TAB PO SCH ×4 (00:43→18:00)
[2017-01-10 06:00] VITALS: BP 102/52
[2017-01-10] MEDS: LEVOTHYROXINE 88MCG TABLET (0.088 MG) PO SCH (06:23)
[2017-01-10 07:10] LABS: MEAN CORPUSCULAR HGB CONC 31.8 g/dl (32.0-36.5); MEAN CORPUSCULAR VOLUME 94.4 fl (80.0-96.0); RED CELL DISTRIBUTION WIDTH 13.7 % (11.5-14.5); WHITE BLOOD COUNT 5.4 10^3/uL (4.0-10.0)
[2017-01-10 07:32] LABS: ALBUMIN 2.9 GM/DL (3.2-5.2); ALBUMIN/GLOBULIN RATIO 0.97 (1.00-1.93); BILIRUBIN,TOTAL 0.6 MG/DL (0.2-1.0); CALCIUM LEVEL 8.8 MG/DL (8.8-10.2); CREATININE FOR GFR 1.72 MG/DL (0.55-1.02); GLOMERULAR FILTRATION RATE 30.3 (>32); POTASSIUM SERUM 3.3 MEQ/L (3.5-5.1); TOTAL PROTEIN 5.9 GM/DL (6.4-8.2)
[2017-01-10] MEDS: MIRALAX *UNIT DOSE* 17GM PACKET PO SCH (09:33)
[2017-01-10] MEDS: PANTOPRAZOLE 40MG TAB (PROTONIX) PO SCH (09:33)
[2017-01-10] MEDS: FERROUS SULFATE 325MG TAB PO SCH (09:33)
[2017-01-10] MEDS: DOCUSATE SODIUM 100 MG CAP PO SCH ×2 (09:33→21:00)
[2017-01-10] MEDS ORDERED: POTASSIUM CHLORIDE 10 MEQ SR TABLET PO ONE (11:00)
--- NOTE | 2017-01-10 11:03 | IPNPDOC ---
Date Seen The patient was seen on 01/10/17. 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 Patient was noted to have severely elevated hypertension and hypertensive emergency. Neurosurgery was consulted, Dr Juarez. Follow-up CT head 12/25/16 and did not indicate any further progression. Subsequently the patient was transferred to the care of TAM Rojas 01/01/17. No acute medical complaints today. Pt with poor po intake on pureed diet and nectar thick liquids, ST following. Denies any fevers, chills, weakness, fatigue, Headache, Chest Pain, Shortness of breath, cough, palpitations, abdominal pain, N/V/D or changes in bowel or bladder habits. PMHx/PSH: Hemorrhagic CVA Hypertension/hypertensive emergency CKD3 Iron deficiency anemia Hypothyroidism PE: GEN: 81yoF, appears stated age. Alert and oriented x 3. Pleasant, interactive. HEENT: Normocephalic, atraumatic. Sclera are nonicteric. Conjunctiva without injection. Nose midline. Moist mucous membranes. Pharynx pink and moist. Neck supple, trachea midline. CHEST: Regular rate and rhythm, +S1, +S2 LUNGS: Clear to auscultation bilaterally. No wheezes, rales, or rhonchi. ABD: Round, soft, non-tender, non-distended. +Bowel sounds throughout. No rebound or guarding. No costovertebral angle tenderness. EXT: No lower extremity edema appreciated. SKIN: Caro, dry, warm. Capillary refill <2sec. No rashes. NEURO: Alert and oriented x 3. Cranial nerves III-XII are intact. Left sided weakness. CT head 12/25/16 Comparisons are 12/22/2078 12/23/2016. The right frontal lobe hematoma is again identified today measuring 3.6 x 2.6 cm, not significantly changed. There is edema surrounding the hematoma as previously. Small volume of hemorrhage is again noted in the subarachnoid space adjacent to the hematoma, unchanged. There is effacement of the right lateral ventricle and there is right to left midline shift of approximately 3.88 mm. This has increased from the 1-2 mm previously. The ventricles are otherwise normal size. No other hemorrhages are identified. There are no other interval changes CTA Head 12/23/16 Normal MRA of the head. Right frontal acute hematoma. Unchanged mild midline shift to the left side UC 01/04 RINE CULTURE Final Organism 1 PROTEUS MIRABILIS COLONY COUNT >100,000 CFU/ml TTE 12/27/16 1. No definite cardiac source of systemic embolism identified. 2. Normal left ventricle internal dimensions and wall thickness. No regional LV wall motion abnormalities. Hyperdynamic left ventricle (LV) systolic function. Left ventricular ejection fraction (LVEF) of 75% by visual estimate. Normal LV diastolic function for age. 3. Suggestive of moderate elevation of estimated right ventricle systolic pressure and pulmonary artery systolic pressure. Mild tricuspid regurgitation. 4. Moderately technically difficult echocardiogram. A&P: 81year oldF with a past medical history significant for Rt hemorrhagic CVA related to uncontrolled hypertension admitted to [facility] 12/22/16 with left facial droop, left hemiparesis, dysarthria and dysphagia. Patient was noted to have severely elevated hypertension and hypertensive emergency. Neurosurgery was consulted, Dr Juarez. Follow-up CT head 12/25/16 and did not indicate any further progression. Subsequently the patient was transferred to the care of LUCÍA Rojas 01/01/17. 1. Right hemorrhagic CVA. Continue statin. Neurosurgery consulted, Dr Juarez. No notes available. Management as per LUCÍA Rojas. PT/OT as per LUCÍA Rojas. Speech therapy as per LUCÍA Rojas Pt with poor po intake. Cont I/O, daily weight. Nutrition consult completed. Continue supplements. Pain control as per LUCÍA Rojas Bowel care as per LUCÍA Rojas. DVT prophylaxis. SCDs/TEDS. 2. Hypertension. Continue hydralazine 10 mg every 6 hours with hold parameters. Hold hydrochlorothiazide 25 mg by mouth daily, Pt with poor po intake. Blood pressure this a.m. is noted to be 102/52. 3. CKD3. Baseline 1.4-1.7. S/P IVF x 500cc 01/02. SCr noted to be 1.72. HCTZ on hold. 4. Iron deficiency anemia. No prior colonoscopy and system, consider colonoscopy as outpatient. Continue with iron supplement. Monitor. 5. Hypothyroidism. Continue Synthroid. 6. UTI UC Proteus mirabilis. Afebrile, no leukocytosis. Completed Cipro. 7. Hypokalemia. KCL x 1 po. Recheck BMP in AM. VS, I&O, 24H, Fishbone Vital Signs/I&O Vital Signs Date Time Temp Pulse Resp B/P (MAP) Pulse Ox O2 Delivery O2 Flow Rate FiO2 01/10/17 06:00 99.2 74 18 102/52 (69) 98 Room Air I&O- Last 24 Hours up to 6 AM 01/11/17 05:59 Intake Total 480 ml Output Total 0 ml Balance 480 ml Laboratory Data 24H LABS Laboratory Tests 2 01/10/17 06:47: Anion Gap 10, Glomerular Filtration Rate 30.3L, Blood Urea Nitrogen 32H, Creatinine 1.72H, Sodium Level 143, Potassium Level 3.3L, Chloride Level 105, Carbon Dioxide Level 28, Calcium Level 8.8, Aspartate Amino Transf (AST/SGOT) 34 , Alanine Aminotransferase (ALT/SGPT) 55, Alkaline Phosphatase 72, Total Bilirubin 0.6, Total Protein 5.9L, Albumin 2.9L, Albumin/Globulin Ratio 0.97L CBC/BMP Laboratory Tests 01/10/17 06:47 Red Blood Count 3.23 L, Mean Corpuscular Volume 94.4, Mean Corpuscular Hemoglobin 30.0, Mean Corpuscular Hemoglobin Concent 31.8 L, Red Cell Distribution Width 13.7, Calcium Level 8.8, Aspartate Amino Transf (AST/SGOT) 34 , Alanine Aminotransferase (ALT/SGPT) 55, Alkaline Phosphatase 72, Total Bilirubin 0.6, Total Protein 5.9 L, Albumin 2.9 L Microbiology Microbiology 01/02/17 Urine Culture - Final, Complete Proteus Mirabilis Alia Callahan Jan 10, 2017 11:03
--- NOTE | 2017-01-10 11:10 | IPNPDOC ---
[employer] Progress Note DATE OF SERVICE: 01/10/17 DATE OF ADMISSION: Jan 01, 2017 at 15:30 INPATIENT REHABILITATION ADMISSION DAY: #10 SUBJECTIVE: The patient is an 81-year-old white female who on 12/22/2016 presented to [facility] emergency room with severe hypertension and left sided motor findings. CT scan of the head showed the intracranial and intraparenchymal hemorrhage of the Right Frontal Lobe with midline shift that increased a little over the next 3 days. Patient admitted for trial of neuro rehabilitation with physical, occupational and speech language therapies. Medicine team to watch fluids, renal function, anemia this weekend. Patient without complaints today with better sleep as everyone went home last night. ALLERGIES: See Below MEDICATIONS: Reviewed, see below. OBJECTIVE: VITAL SIGNS: Please see below. PHYSICAL EXAMINATION: GENERAL: Short overweight elderly white female in no acute distress in good spirits and alert and well oriented. HEENT: Minimal left facial droop with slight left tongue deviation and speech quality shows less dysarthria daily. CARDIOVASCULAR: Regular rate and rhythm with normal S1-S2 without S3-S4 murmurs or rubs. 2/4 bilateral radial pulses. LUNGS: All bosch clear to auscultation. ABDOMEN: Non-tender without masses and normal bowel sounds present in all quadrants. NEUROLOGICAL: Patient is alert and oriented 4. Speech is clear coherent and appropriate with minimal dysarthria. Right body motor intact. Fair to good minus left lower extremity motor. 3-/5 left shoulder girdle and 2+ biceps/ 2- triceps today. Tone remains in left upper and lower extremity and the classic hemiparetic pattern. facial and oral control much improved with almost no droop on left today. SKIN: Grossly intact. LABORATORY DATA: Reviewed. Please see below. MICROBIOLOGY: Please see below. IMAGING: Modified Barium Swallow yesterday. Please see Speech Therapy Note. DVT prophylaxis ordered?: Patient currently using ANGELICA hose and sequential stockings with medications limited by risk of progressing the internal cranial hemorrhage. ASSESSMENT AND PLAN: 1. 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 Patient starting program today of physical, occupational and speech therapy of 3 hours of therapy per day. Patient does seem to be improving daily and it'll will be adjusting to see the impact of the increased therapy with her. Currently anticipating 17-21 day admission however hemorrhagic CVAs sometimes progress much more rapidly and we will assess tomorrow at team rounds and rowing forward. Patient has a very supportive family. Her attention, energy facial muscular control are improved this morning. Patient is showing daily progression in oral control and swallowing with improving motor function and sensory awareness. She is compensating for the visual sensory deficits as well. Left Lower Extremity motor control is also improving. 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 Left Upper Extremity with slower progress. Swallow study suggests continue Comobabi Thicken Liquids and Food to Mechanical Soft 2 diet. Patient participating well and progressing. Anticipated Discharge Date is 01/22/17. REHAB. TEAM ROUNDS: Patient continues to progress well in PT/OT and PATHOLOGY TECHNOLOGIST. She has met her Cognitive/Memory goals in PATHOLOGY TECHNOLOGIST and now will focus only on the dysarthria/dysphagia. She is improving on these with her exercises and after yesterday's Cookie Swallow test has had her diet advance, which she is happy about the better food taste/texture. Still on Comobabi thick liquids though. Patient is principally Supervision to Min. Assist in her ADL's. Ambulation is 78 ' with Hemiwalker and CGA. W/C is Supervision for 120' distance. Endurance is progressing. Estimated Discharge Date remains 01/22/17 still, but will be reconsidered on Saturday's Team Rounds. 2. Acute on chronic renal disease: Patient presents on 01/08/17 with BUN and creatinine that are 36 & 1.68. Patient is off the HCTZ. We continue to follow. 3. Anemia H&H is 9.7 and 30.5 today on 01/10/17 that seems to be sliding down. We will continue to observe. 4. Constipation: Patient with some regularity developing. We will continue to watch. 5. UTI: Uc&s shows Proteus Mirabilis that was present at admission. It is sensitive to Levaquin, so Cipro IV should work. On CBC the WBC is still normal and patient without fevers. Patient completing Cipro trial. I have started trial of Flomax 0.4mg QHS for retention that appears to be helping. TIME SPENT: Chart Review, examination and documentation require greater than 25 minutes. Allergies Coded Allergies: Amoxicillin (Verified Allergy, Mild, rash, 12/22/16) rash Chocolate (Verified Allergy, Mild, itching, 12/27/16) Vital Signs Vital Signs Date Time Temp Pulse Resp B/P (MAP) Pulse Ox O2 Delivery O2 Flow Rate FiO2 01/10/17 06:00 99.2 74 18 102/52 (69) 98 Room Air Laboratory Data CBC/BMP Laboratory Tests 01/10/17 06:47 Red Blood Count 3.23 L, Mean Corpuscular Volume 94.4, Mean Corpuscular Hemoglobin 30.0, Mean Corpuscular Hemoglobin Concent 31.8 L, Red Cell Distribution Width 13.7, Calcium Level 8.8, Aspartate Amino Transf (AST/SGOT) 34 , Alanine Aminotransferase (ALT/SGPT) 55, Alkaline Phosphatase 72, Total Bilirubin 0.6, Total Protein 5.9 L, Albumin 2.9 L Labs 24H Laboratory Tests 2 01/10/17 06:47: Anion Gap 10, Glomerular Filtration Rate 30.3L, Blood Urea Nitrogen 32H, Creatinine 1.72H, Sodium Level 143, Potassium Level 3.3L, Chloride Level 105, Carbon Dioxide Level 28, Calcium Level 8.8, Aspartate Amino Transf (AST/SGOT) 34 , Alanine Aminotransferase (ALT/SGPT) 55, Alkaline Phosphatase 72, Total Bilirubin 0.6, Total Protein 5.9L, Albumin 2.9L, Albumin/Globulin Ratio 0.97L Microbiology Microbiology 01/02/17 Urine Culture - Final, Complete Proteus Mirabilis Current Medications Current Medications Current Medications Acetaminophen (Tylenol Tab) 650 mg Q6HP PRN PO PAIN OR FEVER Last administered on 01/09/17 20:50; Start 01/01/17 at 15:45; Stop 01/31/17 at 15:44 Al Hydrox/Mg Hydrox/Simethicone (Mylanta) 30 ml Q6HP PRN PO INDIGESTION; Start 01/09/17 at 10:00; Stop 02/08/17 at 09:59 Bisacodyl (Dulcolax Suppository) 10 mg DAILYPRN PRN [place] CONSTIPATION; Start at 15:45; Stop 01/31/17 at 15:44 Ciprofloxacin (Cipro) 250 mg BID@,18 PO Last administered on 01/09/17 06:31 ; Start 01/07/17 at 18:00; Stop 01/09/17 at 06:01; Status DC Ciprofloxacin 200 mg/IV Miscellaneous Supplies 100 ml @ 100 mls/hr Q12H IV Last administered on 01/07/17 04:05; Start 01/02/17 at 16:00; Stop 01/07/17 at 11:21; Status DC Docusate Sodium (Colace) 100 mg BID PO Last administered on 01/10/17 09:33; Start 01/01/17 at 21:00; Stop 01/31/17 at 20:59 Ferrous Sulfate (Ferrous Sulfate) 325 mg DAILY PO Last administered on 09:33; Start 01/02/17 at 09:00; Stop 02/01/17 at 08:59 Home Med (Med Rec Complete!) ASDIRECTED XX ; Start 01/01/17 at 16:00; Stop at 16:00; Status DC Hydralazine HCl (Apresoline) 10 mg Q6H PO Last administered on 01/10/17 00:43 ; Start 01/01/17 at 18:00; Stop 01/31/17 at 17:59 Hydrochlorothiazide (Hydrodiuril) 25 mg DAILY PO Last administered on 08:36; Start 01/02/17 at 09:00; Stop 01/08/17 at 10:14; Status DC Levothyroxine Sodium (Synthroid) 88 mcg DAILY@06 PO Last administered on 06:23; Start 01/02/17 at 06:00; Stop 02/01/17 at 05:59 Magnesium Hydroxide (Milk Of Magnesia) 30 ml DAILYPRN PRN PO CONSTIPATION Last administered on 01/03/17 16:38; Start 01/03/17 at 16:00; Stop 02/02/17 at 15: 59 Pantoprazole Sodium (Protonix) 40 mg DAILY PO Last administered on 01/10/17 09 :33; Start 01/02/17 at 09:00; Stop 02/01/17 at 08:59 Polyethylene Glycol (Miralax) 1 pkt DAILY PO Last administered on 01/10/17 09: 33; Start 01/04/17 at 09:00; Stop 02/03/17 at 08:59 Simvastatin (Zocor) 20 mg QHS PO Last administered on 01/09/17 20:50; Start at 21:00; Stop 01/31/17 at 20:59 Sodium Biphosphate/ Sodium Phosphate (Fleet Enema) 1 ea DAILYPRN PRN [place] CONSTIPATION; Start 01/01/17 at 15:45; Stop 01/31/17 at 15:44 Tamsulosin HCl (Flomax) 0.4 mg QHS PO Last administered on 01/09/17 20:50; Start 01/07/17 at 21:00; Stop 02/06/17 at 20:59 Tramadol HCl (Ultram) 50 mg Q4HP PRN PO MODERATE/SEVERE PAIN (PS 5-10) Last administered on 01/06/17 13:32; Start 01/01/17 at 15:45; Stop 01/14/17 at 23:55 JAVI SMITH MD Jan 10, 2017 11:10
[2017-01-10 14:00] VITALS: BP 130/65
[2017-01-10 21:00] VITALS: BP 112/64
[2017-01-10] MEDS: ACETAMINOPHEN TAB 650MG DOSE (2X325MG) PO PRN (21:32)
[2017-01-10] MEDS: TAMSULOSIN 0.4 MG CAP PO SCH (21:32)
[2017-01-10] MEDS: SIMVASTATIN 20 MG TAB PO SCH (21:32)
[2017-01-11] MEDS: **hydrALAZINE** 10 MG TAB PO SCH ×4 (00:55→17:12)
[2017-01-11] MEDS: LEVOTHYROXINE 88MCG TABLET (0.088 MG) PO SCH (05:53)
[2017-01-11 06:00] VITALS: BP 128/58
[2017-01-11 07:20] LABS: MEAN CORPUSCULAR HEMOGLOBIN 29.9 pg (27.0-33.0); MEAN CORPUSCULAR HGB CONC 31.4 g/dl (32.0-36.5); MEAN CORPUSCULAR VOLUME 95.3 fl (80.0-96.0); RED CELL DISTRIBUTION WIDTH 13.8 % (11.5-14.5); WHITE BLOOD COUNT 5.2 10^3/uL (4.0-10.0)
[2017-01-11 08:07] LABS: ALBUMIN 2.8 GM/DL (3.2-5.2); ALBUMIN/GLOBULIN RATIO 1.12 (1.00-1.93); BILIRUBIN,TOTAL 0.5 MG/DL (0.2-1.0); CALCIUM LEVEL 8.4 MG/DL (8.8-10.2); CREATININE FOR GFR 1.6 MG/DL (0.55-1.02); GLOMERULAR FILTRATION RATE 32.9 (>32); POTASSIUM SERUM 3.7 MEQ/L (3.5-5.1); TOTAL PROTEIN 5.3 GM/DL (6.4-8.2)
[2017-01-11] MEDS: MIRALAX *UNIT DOSE* 17GM PACKET PO SCH (08:34)
[2017-01-11] MEDS: FERROUS SULFATE 325MG TAB PO SCH (08:34)
[2017-01-11] MEDS: DOCUSATE SODIUM 100 MG CAP PO SCH (08:34)
[2017-01-11] MEDS: PANTOPRAZOLE 40MG TAB (PROTONIX) PO SCH (08:34)
[2017-01-11 12:17] VITALS: BP 120/82
--- NOTE | 2017-01-11 12:43 | IPNPDOC ---
[employer]et [employer] Progress Note DATE OF SERVICE: 01/11/17 DATE OF ADMISSION: Jan 01, 2017 at 15:30 INPATIENT REHABILITATION ADMISSION DAY: #11 SUBJECTIVE: The patient is an 81-year-old white female who on 12/22/2016 presented to [facility] emergency room with severe hypertension and left sided motor findings. CT scan of the head showed the intracranial and intraparenchymal hemorrhage of the Right Frontal Lobe with midline shift that increased a little over the next 3 days. Patient admitted for trial of neuro rehabilitation with physical, occupational and speech language therapies. Medicine team to watch fluids, renal function, anemia this weekend. Patient without complaints today with better sleep as everyone went home last night. No complaints today. ALLERGIES: See Below MEDICATIONS: Reviewed, see below. OBJECTIVE: VITAL SIGNS: Please see below. PHYSICAL EXAMINATION: GENERAL: Short overweight elderly white female in no acute distress in good spirits and alert and well oriented. HEENT: Minimal left facial droop with slight left tongue deviation and speech quality shows less dysarthria daily. CARDIOVASCULAR: Regular rate and rhythm with normal S1-S2 without S3-S4 murmurs or rubs. 2/4 bilateral radial pulses. LUNGS: All bosch clear to auscultation. ABDOMEN: Non-tender without masses and normal bowel sounds present in all quadrants. NEUROLOGICAL: Patient is alert and oriented 4. Speech is clear coherent and appropriate with minimal dysarthria. Right body motor intact. Fair to good minus left lower extremity motor. 3/5 left shoulder girdle and 3-/5 biceps/ 2/5 triceps today some wrist and hand muscle twitch noted. Tone remains in left upper and lower extremity and the classic hemiparetic pattern. facial and oral control much improved with almost no droop on left today. SKIN: Grossly intact. LABORATORY DATA: Reviewed. Please see below. MICROBIOLOGY: Please see below. IMAGING: Modified Barium Swallow yesterday. Please see Speech Therapy Note. DVT prophylaxis ordered?: Patient currently using ANGELICA hose and sequential stockings with medications limited by risk of progressing the internal cranial hemorrhage. ASSESSMENT AND PLAN: 1. 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 Patient starting program today of physical, occupational and speech therapy of 3 hours of therapy per day. Patient does seem to be improving daily and it'll will be adjusting to see the impact of the increased therapy with her. Currently anticipating 17-21 day admission however hemorrhagic CVAs sometimes progress much more rapidly and we will assess tomorrow at team rounds and rowing forward. Patient has a very supportive family. Her attention, energy facial muscular control are improved this morning. Patient is showing daily progression in oral control and swallowing with improving motor function and sensory awareness. She is compensating for the visual sensory deficits as well. Left Lower Extremity motor control is also improving. 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 Left Upper Extremity with slower progress. Swallow study suggests continue [place]ito Thicken Liquids and Food to Mechanical Soft 2 diet. Patient participating well and progressing. She is principally Supervision to Min. Assist in her ADL's. Ambulation is 78' with Hemiwalker and CGA. W/C is Supervision for 120' distance. Endurance is progressing. Estimated Discharge Date remains 01/22/17. 2. Acute on chronic renal disease: Patient presents on 01/11/17 with BUN and creatinine that are 31 & 1.60 which seem to be improve. Patient is off the HCTZ. We continue to follow. 3. Anemia H&H is 9.0 and 28.7 today on 01/11/17. It seems to be sliding down. We will continue to observe. 4. Constipation: Patient with regularity developing. We will continue to watch. Patient declines Miralax and Colace. She may use PRN MOM and Dulcolax 5. UTI: Uc&s shows Proteus Mirabilis that was present at admission. It is sensitive to Levaquin, so Cipro IV should work. On CBC the WBC is still normal and patient without fevers. Patient completing Cipro trial. I have started trial of Flomax 0.4mg QHS for retention that appears to be helping. TIME SPENT: Chart Review, examination and documentation require greater than 25 minutes. Allergies Coded Allergies: Amoxicillin (Verified Allergy, Mild, rash, 12/22/16) rash Chocolate (Verified Allergy, Mild, itching, 12/27/16) Vital Signs Vital Signs Date Time Temp Pulse Resp B/P (MAP) Pulse Ox O2 Delivery O2 Flow Rate FiO2 01/11/17 12:26 120/82 01/11/17 08:00 Room Air 01/11/17 06:00 97.8 76 18 97 Laboratory Data CBC/BMP Laboratory Tests 01/11/17 06:59 Red Blood Count 3.01 L, Mean Corpuscular Volume 95.3, Mean Corpuscular Hemoglobin 29.9, Mean Corpuscular Hemoglobin Concent 31.4 L, Red Cell Distribution Width 13.8, Calcium Level 8.4 L, Aspartate Amino Transf (AST/SGOT) 28, Alanine Aminotransferase (ALT/SGPT) 47, Alkaline Phosphatase 72, Total Bilirubin 0.5, Total Protein 5.3 L, Albumin 2.8 L Labs 24H Laboratory Tests 2 01/11/17 06:59: Anion Gap 6L, Glomerular Filtration Rate 32.9, Blood Urea Nitrogen 31H, Creatinine 1.60H, Sodium Level 144, Potassium Level 3.7, Chloride Level 107, Carbon Dioxide Level 31, Calcium Level 8.4L, Aspartate Amino Transf (AST/SGOT) 28, Alanine Aminotransferase (ALT/SGPT) 47, Alkaline Phosphatase 72, Total Bilirubin 0.5, Total Protein 5.3L, Albumin 2.8L, Albumin/Globulin Ratio 1.12 Microbiology Microbiology 01/02/17 Urine Culture - Final, Complete Proteus Mirabilis Current Medications Current Medications Current Medications Acetaminophen (Tylenol Tab) 650 mg Q6HP PRN PO PAIN OR FEVER Last administered on 01/10/17 21:32; Start 01/01/17 at 15:45; Stop 01/31/17 at 15:44 Al Hydrox/Mg Hydrox/Simethicone (Mylanta) 30 ml Q6HP PRN PO INDIGESTION; Start 01/09/17 at 10:00; Stop 02/08/17 at 09:59 Bisacodyl (Dulcolax Suppository) 10 mg DAILYPRN PRN [place] CONSTIPATION; Start at 15:45; Stop 01/31/17 at 15:44 Ciprofloxacin (Cipro) 250 mg BID@06,18 PO Last administered on 01/09/17 06:31 ; Start 01/07/17 at 18:00; Stop 01/09/17 at 06:01; Status DC Ciprofloxacin 200 mg/IV Miscellaneous Supplies 100 ml @ 100 mls/hr Q12H IV Last administered on 01/07/17 04:05; Start 01/02/17 at 16:00; Stop 01/07/17 at 11:21; Status DC Docusate Sodium (Colace) 100 mg BID PO Last administered on 01/10/17 09:33; Start 01/01/17 at 21:00; Stop 01/11/17 at 10:01; Status DC Ferrous Sulfate (Ferrous Sulfate) 325 mg DAILY PO Last administered on 08:34; Start 01/02/17 at 09:00; Stop 02/01/17 at 08:59 Home Med (Med Rec Complete!) ASDIRECTED XX ; Start 01/01/17 at 16:00; Stop at 16:00; Status DC Hydralazine HCl (Apresoline) 10 mg Q6H PO Last administered on 01/11/17 12:26 ; Start 01/01/17 at 18:00; Stop 01/31/17 at 17:59 Hydrochlorothiazide (Hydrodiuril) 25 mg DAILY PO Last administered on 08:36; Start 01/02/17 at 09:00; Stop 01/08/17 at 10:14; Status DC Levothyroxine Sodium (Synthroid) 88 mcg DAILY@06 PO Last administered on 05:53; Start 01/02/17 at 06:00; Stop 02/01/17 at 05:59 Magnesium Hydroxide (Milk Of Magnesia) 30 ml DAILYPRN PRN PO CONSTIPATION Last administered on 01/03/17 16:38; Start 01/03/17 at 16:00; Stop 02/02/17 at 15: 59 Pantoprazole Sodium (Protonix) 40 mg DAILY PO Last administered on 01/11/17 08 :34; Start 01/02/17 at 09:00; Stop 02/01/17 at 08:59 Polyethylene Glycol (Miralax) 1 pkt DAILY PO Last administered on 01/10/17 09: 33; Start 01/04/17 at 09:00; Stop 01/11/17 at 10:01; Status DC Simvastatin (Zocor) 20 mg QHS PO Last administered on 01/10/17 21:32; Start at 21:00; Stop 01/31/17 at 20:59 Sodium Biphosphate/ Sodium Phosphate (Fleet Enema) 1 ea DAILYPRN PRN [place] CONSTIPATION; Start 01/01/17 at 15:45; Stop 01/31/17 at 15:44 Tamsulosin HCl (Flomax) 0.4 mg QHS PO Last administered on 01/10/17 21:32; Start 01/07/17 at 21:00; Stop 02/06/17 at 20:59 Tramadol HCl (Ultram) 50 mg Q4HP PRN PO MODERATE/SEVERE PAIN (PS 5-10) Last administered on 01/06/17 13:32; Start 01/01/17 at 15:45; Stop 01/14/17 at 23:55 JAVI SMITH MD Jan 11, 2017 12:43
[2017-01-11 13:33] LABS: FOLATE 8.7 NG/ML (>5.4)
[2017-01-11 14:00] VITALS: BP 146/66
[2017-01-11 17:11] VITALS: BP 140/68
[2017-01-11 20:00] VITALS: BP 150/68
[2017-01-11] MEDS: SIMVASTATIN 20 MG TAB PO SCH (21:08)
[2017-01-11] MEDS: ACETAMINOPHEN TAB 650MG DOSE (2X325MG) PO PRN (21:09)
[2017-01-11] MEDS: TAMSULOSIN 0.4 MG CAP PO SCH (21:09)
[2017-01-12] MEDS: **hydrALAZINE** 10 MG TAB PO SCH ×4 (01:54→18:14)
[2017-01-12 06:00] VITALS: BP_SYST 118; BP_SYST 172; BP_DIAS 52; BP_DIAS 74
[2017-01-12 06:38] LABS: MEAN CORPUSCULAR HEMOGLOBIN 30.2 pg (27.0-33.0); MEAN CORPUSCULAR HGB CONC 31.7 g/dl (32.0-36.5); MEAN CORPUSCULAR VOLUME 95.3 fl (80.0-96.0); RED CELL DISTRIBUTION WIDTH 13.8 % (11.5-14.5); WHITE BLOOD COUNT 5.7 10^3/uL (4.0-10.0)
[2017-01-12] MEDS: LEVOTHYROXINE 88MCG TABLET (0.088 MG) PO SCH (06:50)
[2017-01-12 06:59] LABS: ALBUMIN 2.6 GM/DL (3.2-5.2); ALBUMIN/GLOBULIN RATIO 0.93 (1.00-1.93); BILIRUBIN,TOTAL 0.4 MG/DL (0.2-1.0); CALCIUM LEVEL 8.2 MG/DL (8.8-10.2); CREATININE FOR GFR 1.24 MG/DL (0.55-1.02); GLOMERULAR FILTRATION RATE 44.2 (>32); POTASSIUM SERUM 3.7 MEQ/L (3.5-5.1); TOTAL PROTEIN 5.4 GM/DL (6.4-8.2)
[2017-01-12] MEDS: FERROUS SULFATE 325MG TAB PO SCH (08:59)
[2017-01-12] MEDS: PANTOPRAZOLE 40MG TAB (PROTONIX) PO SCH (08:59)
[2017-01-12 14:00] VITALS: BP 122/58
[2017-01-12 20:00] VITALS: BP 132/58
[2017-01-12] MEDS: TAMSULOSIN 0.4 MG CAP PO SCH (20:20)
[2017-01-12] MEDS: SIMVASTATIN 20 MG TAB PO SCH (20:20)
[2017-01-12] MEDS: ACETAMINOPHEN TAB 650MG DOSE (2X325MG) PO PRN (20:21)
[2017-01-13] MEDS: **hydrALAZINE** 10 MG TAB PO SCH ×4 (00:23→17:27)
[2017-01-13] MEDS: LEVOTHYROXINE 88MCG TABLET (0.088 MG) PO SCH (05:41)
[2017-01-13 05:43] VITALS: BP 142/60
[2017-01-13 06:00] VITALS: BP 142/60
[2017-01-13 06:42] LABS: MEAN CORPUSCULAR HEMOGLOBIN 29.9 pg (27.0-33.0); MEAN CORPUSCULAR HGB CONC 31.4 g/dl (32.0-36.5); MEAN CORPUSCULAR VOLUME 95.4 fl (80.0-96.0); RED CELL DISTRIBUTION WIDTH 13.8 % (11.5-14.5); WHITE BLOOD COUNT 4.8 10^3/uL (4.0-10.0)
[2017-01-13 07:07] LABS: ALBUMIN 2.8 GM/DL (3.2-5.2); ALBUMIN/GLOBULIN RATIO 1.04 (1.00-1.93); BILIRUBIN,TOTAL 0.5 MG/DL (0.2-1.0); CALCIUM LEVEL 8.6 MG/DL (8.8-10.2); CREATININE FOR GFR 1.2 MG/DL (0.55-1.02); GLOMERULAR FILTRATION RATE 45.9 (>32); POTASSIUM SERUM 3.4 MEQ/L (3.5-5.1); TOTAL PROTEIN 5.5 GM/DL (6.4-8.2)
[2017-01-13] MEDS: PANTOPRAZOLE 40MG TAB (PROTONIX) PO SCH (09:09)
[2017-01-13] MEDS: FERROUS SULFATE 325MG TAB PO SCH (09:09)
[2017-01-13 14:00] VITALS: BP 144/62
[2017-01-13 20:00] VITALS: BP 132/64
[2017-01-13] MEDS: TAMSULOSIN 0.4 MG CAP PO SCH (20:38)
[2017-01-13] MEDS: SIMVASTATIN 20 MG TAB PO SCH (20:38)
[2017-01-13] MEDS: ACETAMINOPHEN TAB 650MG DOSE (2X325MG) PO PRN (20:38)
[2017-01-14] MEDS: **hydrALAZINE** 10 MG TAB PO SCH ×4 (00:15→16:53)
[2017-01-14 06:00] VITALS: BP 138/68
[2017-01-14] MEDS: LEVOTHYROXINE 88MCG TABLET (0.088 MG) PO SCH (06:34)
[2017-01-14 06:55] LABS: MEAN CORPUSCULAR HEMOGLOBIN 29.7 pg (27.0-33.0); MEAN CORPUSCULAR HGB CONC 30.9 g/dl (32.0-36.5); MEAN CORPUSCULAR VOLUME 96.3 fl (80.0-96.0); RED CELL DISTRIBUTION WIDTH 14.1 % (11.5-14.5); WHITE BLOOD COUNT 5.4 10^3/uL (4.0-10.0)
[2017-01-14 07:25] LABS: ALBUMIN 2.8 GM/DL (3.2-5.2); ALBUMIN/GLOBULIN RATIO 1.12 (1.00-1.93); BILIRUBIN,TOTAL 0.5 MG/DL (0.2-1.0); CALCIUM LEVEL 8.2 MG/DL (8.8-10.2); CREATININE FOR GFR 1.13 MG/DL (0.55-1.02); GLOMERULAR FILTRATION RATE 49.1 (>32); POTASSIUM SERUM 4.1 MEQ/L (3.5-5.1); TOTAL PROTEIN 5.3 GM/DL (6.4-8.2)
[2017-01-14] MEDS: PANTOPRAZOLE 40MG TAB (PROTONIX) PO SCH (08:22)
[2017-01-14] MEDS: FERROUS SULFATE 325MG TAB PO SCH (08:22)
[2017-01-14] MEDS: ACETAMINOPHEN TAB 650MG DOSE (2X325MG) PO PRN ×2 (10:10→20:54)
[2017-01-14 11:39] VITALS: BP 134/62
--- NOTE | 2017-01-14 11:48 | IPNPDOC ---
Date Seen The patient was seen on 01/14/17. 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 with left facial droop, left hemiparesis, dysarthria and dysphagia. Patient was noted to have severely elevated hypertension and hypertensive emergency. Neurosurgery was consulted, Dr Juarez. Follow-up CT head 12/25/16 and did not indicate any further progression. Subsequently the patient was transferred to the care of TAM Rojas 01/01/17. No acute medical complaints today. Pt with poor po intake on pureed diet and nectar thick liquids, ST following. Denies any fevers, chills, weakness, fatigue, Headache, Chest Pain, Shortness of breath, cough, palpitations, abdominal pain, N/V/D or changes in bowel or bladder habits. PMHx/PSH: Hemorrhagic CVA Hypertension/hypertensive emergency CKD3 Iron deficiency anemia Hypothyroidism PE: GEN: 81yoF, appears stated age. Alert and oriented x 3. Pleasant, interactive. HEENT: Normocephalic, atraumatic. Sclera are nonicteric. Conjunctiva without injection. Nose midline. Moist mucous membranes. Pharynx pink and moist. Neck supple, trachea midline. CHEST: Regular rate and rhythm, +S1, +S2 LUNGS: Clear to auscultation bilaterally. No wheezes, rales, or rhonchi. ABD: Round, soft, non-tender, non-distended. +Bowel sounds throughout. No rebound or guarding. No costovertebral angle tenderness. EXT: No lower extremity edema appreciated. SKIN: [place], dry, warm. Capillary refill <2sec. No rashes. NEURO: Alert and oriented x 3. Cranial nerves III-XII are intact. Left sided weakness. CT head 12/25/16 Comparisons are 12/22/2078 12/23/2016. The right frontal lobe hematoma is again identified today measuring 3.6 x 2.6 cm, not significantly changed. There is edema surrounding the hematoma as previously. Small volume of hemorrhage is again noted in the subarachnoid space adjacent to the hematoma, unchanged. There is effacement of the right lateral ventricle and there is right to left midline shift of approximately 3.88 mm. This has increased from the 1-2 mm previously. The ventricles are otherwise normal size. No other hemorrhages are identified. There are no other interval changes CTA Head 12/23/16 Normal MRA of the head. Right frontal acute hematoma. Unchanged mild midline shift to the left side UC 01/04 RINE CULTURE Final Organism 1 PROTEUS MIRABILIS COLONY COUNT >100,000 CFU/ml TTE 12/27/16 1. No definite cardiac source of systemic embolism identified. 2. Normal left ventricle internal dimensions and wall thickness. No regional LV wall motion abnormalities. Hyperdynamic left ventricle (LV) systolic function. Left ventricular ejection fraction (LVEF) of 75% by visual estimate. Normal LV diastolic function for age. 3. Suggestive of moderate elevation of estimated right ventricle systolic pressure and pulmonary artery systolic pressure. Mild tricuspid regurgitation. 4. Moderately technically difficult echocardiogram. A&P: 81year oldF with a past medical history significant for Rt hemorrhagic CVA related to uncontrolled hypertension admitted to [facility] 12/22/16 with left facial droop, left hemiparesis, dysarthria and dysphagia. Patient was noted to have severely elevated hypertension and hypertensive emergency. Neurosurgery was consulted, Dr Juarez. Follow-up CT head 12/25/16 and did not indicate any further progression. Subsequently the patient was transferred to the care of LUCÍA Rojas 01/01/17. 1. Right hemorrhagic CVA. Continue statin. Neurosurgery consulted, Dr Juarez. No notes available. Management as per LUCÍA Rojas. PT/OT as per LUCÍA Rojas. Speech therapy as per LUCÍA Rojas Pt with poor po intake. Cont I/O, daily weight. Nutrition consult completed. Continue supplements. Pain control as per LUCÍA Rojas Bowel care as per LUCÍA Rojas. DVT prophylaxis. SCDs/TEDS. 2. Hypertension. Continue hydralazine 10 mg every 6 hours with hold parameters. Hold hydrochlorothiazide 25 mg by mouth daily, Pt with poor po intake. Blood pressure this a.m. is noted to be 134/62. 3. CKD3. Baseline 1.4-1.7. S/P IVF x 500cc 01/02. SCr noted to be 1.13. HCTZ on hold. 4. Iron deficiency anemia. No prior colonoscopy and system, consider colonoscopy as outpatient. Continue with iron supplement. Monitor. 5. Hypothyroidism. Continue Synthroid. 6. UTI UC Proteus mirabilis. Afebrile, no leukocytosis. Completed Cipro. 7. Hypokalemia. KCL x 1 po. Resolved. VS, I&O, 24H, Fishbone Vital Signs/I&O Vital Signs Date Time Temp Pulse Resp B/P (MAP) Pulse Ox O2 Delivery O2 Flow Rate FiO2 01/14/17 11:39 134/62 (86) 01/14/17 08:00 Room Air 01/14/17 06:00 98.5 76 18 98 I&O- Last 24 Hours up to 6 AM 01/15/17 05:59 Intake Total 180 ml Output Total 550 ml Balance -370 ml Laboratory Data 24H LABS Laboratory Tests 2 01/14/17 06:33: Anion Gap 8, Glomerular Filtration Rate 49.1, Blood Urea Nitrogen 28H, Creatinine 1.13H, Sodium Level 146H, Potassium Level 4.1#, Chloride Level 109H, Carbon Dioxide Level 29, Calcium Level 8.2L, Aspartate Amino Transf (AST/SGOT) 25, Alanine Aminotransferase (ALT/SGPT) 39, Alkaline Phosphatase 77, Total Bilirubin 0.5, Total Protein 5.3L, Albumin 2.8L, Albumin/Globulin Ratio 1.12 CBC/BMP Laboratory Tests 01/14/17 06:33 Red Blood Count 2.96 L, Mean Corpuscular Volume 96.3 H, Mean Corpuscular Hemoglobin 29.7, Mean Corpuscular Hemoglobin Concent 30.9 L, Red Cell Distribution Width 14.1, Calcium Level 8.2 L, Aspartate Amino Transf (AST/SGOT) 25, Alanine Aminotransferase (ALT/SGPT) 39, Alkaline Phosphatase 77, Total Bilirubin 0.5, Total Protein 5.3 L, Albumin 2.8 L Alia Callahan Jan 14, 2017 11:48
[2017-01-14 14:00] VITALS: BP 120/74
[2017-01-14 16:52] VITALS: BP 140/70
[2017-01-14 20:45] VITALS: BP 132/64
[2017-01-14] MEDS: TAMSULOSIN 0.4 MG CAP PO SCH (20:53)
[2017-01-14] MEDS: SIMVASTATIN 20 MG TAB PO SCH (20:53)
[2017-01-15] MEDS: **hydrALAZINE** 10 MG TAB PO SCH ×5 (00:08→23:52)
[2017-01-15 06:00] VITALS: BP 154/64
[2017-01-15] MEDS: LEVOTHYROXINE 88MCG TABLET (0.088 MG) PO SCH (06:17)
[2017-01-15] MEDS: PANTOPRAZOLE 40MG TAB (PROTONIX) PO SCH (08:16)
[2017-01-15] MEDS: FERROUS SULFATE 325MG TAB PO SCH (08:16)
[2017-01-15 08:57] LABS: MEAN CORPUSCULAR HEMOGLOBIN 30.6 pg (27.0-33.0); MEAN CORPUSCULAR HGB CONC 31.7 g/dl (32.0-36.5); MEAN CORPUSCULAR VOLUME 96.5 fl (80.0-96.0); WHITE BLOOD COUNT 6.2 10^3/uL (4.0-10.0)
[2017-01-15 09:06] LABS: ALBUMIN 3.2 GM/DL (3.2-5.2); ALBUMIN/GLOBULIN RATIO 1.14 (1.00-1.93); BILIRUBIN,TOTAL 0.6 MG/DL (0.2-1.0); CALCIUM LEVEL 8.7 MG/DL (8.8-10.2); CREATININE FOR GFR 1.11 MG/DL (0.55-1.02); GLOMERULAR FILTRATION RATE 50.1 (>32); POTASSIUM SERUM 3.9 MEQ/L (3.5-5.1)
--- NOTE | 2017-01-15 11:31 | IPNPDOC ---
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 CT scan of the head showed the intracranial and intraparenchymal hemorrhage of the Right Frontal Lobe with midline shift that increased a little over the next 3 days. Patient admitted for trial of neuro rehabilitation with physical, occupational and speech language therapies. Medicine team to watch fluids, renal function, anemia this weekend. Patient without complaints today with better sleep as everyone went home last night. No complaints today. ALLERGIES: See Below MEDICATIONS: Reviewed, see below. OBJECTIVE: VITAL SIGNS: Please see below. PHYSICAL EXAMINATION: GENERAL: Short overweight elderly white female in no acute distress in good spirits and alert and well oriented. HEENT: Minimal left facial droop with slight left tongue deviation and speech quality shows no dysarthria today. CARDIOVASCULAR: Regular rate and rhythm with normal S1-S2 without S3-S4 murmurs or rubs. 2/4 bilateral radial pulses. LUNGS: All bosch clear to auscultation. ABDOMEN: Non-tender without masses and normal bowel sounds present in all quadrants. NEUROLOGICAL: Patient is alert and oriented 4. Speech is clear coherent and appropriate with minimal dysarthria. Right body motor intact. Fair to good minus left lower extremity motor. 3+/5 left shoulder girdle and 3/5 biceps / 3-/ 5 triceps today some wrist and hand muscle twitch noted. Tone remains in left upper and lower extremity and the classic hemiparetic pattern. facial and oral control much improved with almost no droop on left today. SKIN: Grossly intact. LABORATORY DATA: Reviewed. Please see below. MICROBIOLOGY: Please see below. IMAGING: Modified Barium Swallow yesterday. Please see Speech Therapy Note. DVT prophylaxis ordered?: Patient currently using ANGELICA hose and sequential stockings with medications limited by risk of progressing the internal cranial hemorrhage. ASSESSMENT AND PLAN: 1. 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 Patient starting program today of physical, occupational and speech therapy of 3 hours of therapy per day. Patient does seem to be improving daily and it'll will be adjusting to see the impact of the increased therapy with her. Currently anticipating 17-21 day admission however hemorrhagic CVAs sometimes progress much more rapidly and we will assess tomorrow at team rounds and rowing forward. Patient has a very supportive family. Her attention, energy facial muscular control are improved this morning. Patient is showing daily progression in oral control and swallowing with improving motor function and sensory awareness. She is compensating for the visual sensory deficits as well. Left Upper & Lower Extremity motor control is also improving. 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 Patient participating well and progressing. She is principally Supervision to Min. Assist in her ADL's. Endurance is progressing. REHAB. TEAM ROUNDS: Patient progressing well with L UE & LE motor recovery, now with hand and wrist movements. Also oromotor control is better for handling water so, B[employer]PENTER recommends a Free Water Protocol. Patient becoming more assertive and important that family rest now to be able to help her when she returns to home. Anticipated Discharge date is 01/22/17. 2. Acute on chronic renal disease: Patient presents on 01/15/17 with BUN and creatinine that are 29 & 1.11 which seem to be improve. Patient is off the HCTZ. We continue to follow. 3. Anemia H&H is 9.7 and 30.6 today on 01/15/17. We will continue to observe. 4. Constipation: Patient with regularity. We will continue to watch. She may use PRN MOM and Dulcolax 5. UTI: Uc&s shows Proteus Mirabilis that was present at admission. It is sensitive to Levaquin, so Cipro IV should work. On CBC the WBC is still normal and patient without fevers. Patient completed Cipro trial no fevers now with normal WBC 6.2K. I have started trial of Flomax 0.4mg QHS for retention that appears to be helping. TIME SPENT: Chart Review, examination and documentation require greater than 25 minutes. Allergies Coded Allergies: Amoxicillin (Verified Allergy, Mild, rash, 12/22/16) rash Chocolate (Verified Allergy, Mild, itching, 12/27/16) Vital Signs Vital Signs Date Time Temp Pulse Resp B/P (MAP) Pulse Ox O2 Delivery O2 Flow Rate FiO2 01/15/17 08:00 Room Air 01/15/17 06:17 154/64 01/15/17 06:00 98.3 71 18 97 Laboratory Data CBC/BMP Laboratory Tests 01/15/17 08:14 Red Blood Count 3.17 L, Mean Corpuscular Volume 96.5 H, Mean Corpuscular Hemoglobin 30.6, Mean Corpuscular Hemoglobin Concent 31.7 L, Red Cell Distribution Width 14.0, Calcium Level 8.7 L, Aspartate Amino Transf (AST/SGOT) 28, Alanine Aminotransferase (ALT/SGPT) 41, Alkaline Phosphatase 95, Total Bilirubin 0.6, Total Protein 6.0 L, Albumin 3.2 Labs 24H Laboratory Tests 2 01/15/17 08:14: Anion Gap 8, Glomerular Filtration Rate 50.1, Blood Urea Nitrogen 29H, Creatinine 1.11H, Sodium Level 145, Potassium Level 3.9, Chloride Level 109H, Carbon Dioxide Level 28, Calcium Level 8.7L, Aspartate Amino Transf (AST/SGOT) 28, Alanine Aminotransferase (ALT/SGPT) 41, Alkaline Phosphatase 95, Total Bilirubin 0.6, Total Protein 6.0L, Albumin 3.2, Albumin/Globulin Ratio 1.14 Current Medications Current Medications Current Medications Acetaminophen (Tylenol Tab) 650 mg Q6HP PRN PO PAIN OR FEVER Last administered on 01/14/17 20:54; Start 01/01/17 at 15:45; Stop 01/31/17 at 15:44 Al Hydrox/Mg Hydrox/Simethicone (Mylanta) 30 ml Q6HP PRN PO INDIGESTION; Start 01/09/17 at 10:00; Stop 02/08/17 at 09:59 Bisacodyl (Dulcolax Suppository) 10 mg DAILYPRN PRN [place] CONSTIPATION; Start at 15:45; Stop 01/31/17 at 15:44 Ciprofloxacin (Cipro) 250 mg BID@06,18 PO Last administered on 01/09/17 06:31 ; Start 01/07/17 at 18:00; Stop 01/09/17 at 06:01; Status DC Ciprofloxacin 200 mg/IV Miscellaneous Supplies 100 ml @ 100 mls/hr Q12H IV Last administered on 01/07/17 04:05; Start 01/02/17 at 16:00; Stop 01/07/17 at 11:21; Status DC Docusate Sodium (Colace) 100 mg BID PO Last administered on 01/10/17 09:33; Start 01/01/17 at 21:00; Stop 01/11/17 at 10:01; Status DC Ferrous Sulfate (Ferrous Sulfate) 325 mg DAILY PO Last administered on 08:16; Start 01/02/17 at 09:00; Stop 02/01/17 at 08:59 Home Med (Med Rec Complete!) ASDIRECTED XX ; Start 01/01/17 at 16:00; Stop at 16:00; Status DC Hydralazine HCl (Apresoline) 10 mg Q6H PO Last administered on 01/15/17 06:17 ; Start 01/01/17 at 18:00; Stop 01/31/17 at 17:59 Hydrochlorothiazide (Hydrodiuril) 25 mg DAILY PO Last administered on 08:36; Start 01/02/17 at 09:00; Stop 01/08/17 at 10:14; Status DC Levothyroxine Sodium (Synthroid) 88 mcg DAILY@06 PO Last administered on 06:17; Start 01/02/17 at 06:00; Stop 02/01/17 at 05:59 Magnesium Hydroxide (Milk Of Magnesia) 30 ml DAILYPRN PRN PO CONSTIPATION Last administered on 01/03/17 16:38; Start 01/03/17 at 16:00; Stop 02/02/17 at 15: 59 Pantoprazole Sodium (Protonix) 40 mg DAILY PO Last administered on 01/15/17 08:16; Start 01/02/17 at 09:00; Stop 02/01/17 at 08:59 Polyethylene Glycol (Miralax) 1 pkt DAILY PO Last administered on 01/10/17 09: 33; Start 01/04/17 at 09:00; Stop 01/11/17 at 10:01; Status DC Simvastatin (Zocor) 20 mg QHS PO Last administered on 01/14/17 20:53; Start at 21:00; Stop 01/31/17 at 20:59 Sodium Biphosphate/ Sodium Phosphate (Fleet Enema) 1 ea DAILYPRN PRN [place] CONSTIPATION; Start 01/01/17 at 15:45; Stop 01/31/17 at 15:44 Tamsulosin HCl (Flomax) 0.4 mg QHS PO Last administered on 01/14/17 20:53; Start 01/07/17 at 21:00; Stop 02/06/17 at 20:59 Tramadol HCl (Ultram) 50 mg Q4HP PRN PO MODERATE/SEVERE PAIN (PS 5-10) Last administered on 01/06/17 13:32; Start 01/01/17 at 15:45; Stop 01/14/17 at 23:55 ; Status DC JAVI SMITH MD Jan 15, 2017 11:31
[2017-01-15 12:08] VITALS: BP 142/70
[2017-01-15 14:00] VITALS: BP 132/64
[2017-01-15 17:34] VITALS: BP 148/68
[2017-01-15 20:00] VITALS: BP 125/61
[2017-01-15] MEDS: TAMSULOSIN 0.4 MG CAP PO SCH (20:13)
[2017-01-15] MEDS: SIMVASTATIN 20 MG TAB PO SCH (20:13)
[2017-01-15] MEDS: ACETAMINOPHEN TAB 650MG DOSE (2X325MG) PO PRN (20:13)
[2017-01-16] MEDS: LEVOTHYROXINE 88MCG TABLET (0.088 MG) PO SCH (05:52)
[2017-01-16] MEDS: **hydrALAZINE** 10 MG TAB PO SCH ×3 (05:53→17:16)
[2017-01-16 06:00] VITALS: BP 152/70
[2017-01-16] MEDS: PANTOPRAZOLE 40MG TAB (PROTONIX) PO SCH (07:44)
[2017-01-16] MEDS: FERROUS SULFATE 325MG TAB PO SCH (07:44)
[2017-01-16 08:08] LABS: MEAN CORPUSCULAR HEMOGLOBIN 29.8 pg (27.0-33.0); MEAN CORPUSCULAR HGB CONC 30.6 g/dl (32.0-36.5); MEAN CORPUSCULAR VOLUME 97.5 fl (80.0-96.0); RED CELL DISTRIBUTION WIDTH 14.1 % (11.5-14.5); WHITE BLOOD COUNT 4.9 10^3/uL (4.0-10.0)
[2017-01-16 08:37] LABS: ALBUMIN 3.2 GM/DL (3.2-5.2); ALBUMIN/GLOBULIN RATIO 0.91 (1.00-1.93); BILIRUBIN,TOTAL 0.7 MG/DL (0.2-1.0); CALCIUM LEVEL 9.4 MG/DL (8.8-10.2); CREATININE FOR GFR 1.23 MG/DL (0.55-1.02); GLOMERULAR FILTRATION RATE 44.5 (>32); POTASSIUM SERUM 3.2 MEQ/L (3.5-5.1); TOTAL PROTEIN 6.7 GM/DL (6.4-8.2)
[2017-01-16] MEDS: POTASSIUM CHLORIDE 10 MEQ SR TABLET PO SCH ×2 (09:02→21:07)
--- NOTE | 2017-01-16 10:30 | IPNPDOC ---
Professor Of Early Childhood Education Progress Note DATE OF SERVICE: 01/16/17 DATE OF ADMISSION: Jan 01, 2017 at 15:30 INPATIENT REHABILITATION ADMISSION DAY: #16 SUBJECTIVE: The patient is an 81-year-old white female who on 12/22/2016 presented to [facility] emergency room with severe hypertension and left sided motor findings. CT scan of the head showed the intracranial and intraparenchymal hemorrhage of the Right Frontal Lobe with midline shift that increased a little over the next 3 days. Patient admitted for trial of neuro rehabilitation with physical, occupational and speech language therapies. Medicine team to watch fluids, renal function, anemia this weekend. Patient without complaints today with better sleep as everyone went home last night. No complaints today, but happy about the water advancement in swallowing. ALLERGIES: See Below MEDICATIONS: Reviewed, see below. OBJECTIVE: VITAL SIGNS: Please see below. PHYSICAL EXAMINATION: GENERAL: Short overweight elderly white female in no acute distress in good spirits and alert and well oriented. HEENT: Minimal left facial droop with slight left tongue deviation and speech quality shows no dysarthria today. CARDIOVASCULAR: Regular rate and rhythm with normal S1-S2 without S3-S4 murmurs or rubs. 2/4 bilateral radial pulses. LUNGS: All bosch clear to auscultation. ABDOMEN: Non-tender without masses and normal bowel sounds present in all quadrants. NEUROLOGICAL: Patient is alert and oriented 4. Speech is clear coherent and appropriate with minimal dysarthria. Right body motor intact. Fair to good minus left lower extremity motor. 3+/5 left shoulder girdle and 3/5 biceps / 3-/ 5 triceps and antigravital hand and wrist movements. Tone remains in left upper and lower extremity and the classic hemiparetic pattern. facial and oral control much improved with almost no droop on left today. SKIN: Grossly intact. LABORATORY DATA: Reviewed. Please see below. MICROBIOLOGY: Please see below. IMAGING: Modified Barium Swallow yesterday. Please see Speech Therapy Note. DVT prophylaxis ordered?: Patient currently using ANGELICA hose and sequential stockings with medications limited by risk of progressing the internal cranial hemorrhage. ASSESSMENT AND PLAN: 1. 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 Patient starting program today of physical, occupational and speech therapy of 3 hours of therapy per day. Patient does seem to be improving daily and it'll will be adjusting to see the impact of the increased therapy with her. Currently anticipating 17-21 day admission however hemorrhagic CVAs sometimes progress much more rapidly and we will assess tomorrow at team rounds and rowing forward. Patient has a very supportive family. Her attention, energy facial muscular control are improved this morning. Patient is showing daily progression in oral control and swallowing with improving motor function and sensory awareness. She is compensating for the visual sensory deficits as well. Left Upper & Lower Extremity motor control is also improving. 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 Patient participating well and progressing. She is principally Supervision to Min. Assist in her ADL's. Endurance is progressing.Patient progressing well with L UE & LE motor recovery, now with hand and wrist movements. Also oromotor control is better for handling water so, SCRAP DEALER recommends a Free Water Protocol and doing better with the hydration on swallowing exercises this morning in [employer]. Patient becoming more assertive and important that family rest now to be able to help her when she returns to home. Anticipated Discharge date is 01/22/17. 2. Acute on chronic renal disease: Patient presents on 01/16/17 with BUN and creatinine that are 27 & 1.25. We continue to follow. 3. Anemia H&H is 9.7 and 31.7 today on 01/16/17. We will continue to observe. 4. Constipation: Patient with regularity. We will continue to watch. She may use PRN MOM and Dulcolax 5. UTI: Uc&s shows Proteus Mirabilis that was present at admission. It is sensitive to Levaquin, so Cipro IV should work. On CBC the WBC is still normal and patient without fevers. Patient completed Cipro trial no fevers now with normal WBC 6.2K. I have started trial of Flomax 0.4mg QHS for retention that appears to be helping. TIME SPENT: Chart Review, examination and documentation require greater than 25 minutes. Allergies Coded Allergies: Amoxicillin (Verified Allergy, Mild, rash, 12/22/16) rash Chocolate (Verified Allergy, Mild, itching, 12/27/16) Vital Signs Vital Signs Date Time Temp Pulse Resp B/P (MAP) Pulse Ox O2 Delivery O2 Flow Rate FiO2 01/16/17 06:00 97.9 69 18 152/70 (97) 97 Room Air Laboratory Data CBC/BMP Laboratory Tests 01/16/17 07:46 Red Blood Count 3.25 L, Mean Corpuscular Volume 97.5 H, Mean Corpuscular Hemoglobin 29.8, Mean Corpuscular Hemoglobin Concent 30.6 L, Red Cell Distribution Width 14.1 01/16/17 07:47 Calcium Level 9.4, Aspartate Amino Transf (AST/SGOT) 21, Alanine Aminotransferase (ALT/SGPT) 36, Alkaline Phosphatase 92, Total Bilirubin 0.7, Total Protein 6.7, Albumin 3.2 Labs 24H Laboratory Tests 2 01/16/17 07:47: Anion Gap 9, Glomerular Filtration Rate 44.5, Blood Urea Nitrogen 27H, Creatinine 1.23H, Sodium Level 141, Potassium Level 3.2L, Chloride Level 105, Carbon Dioxide Level 27, Calcium Level 9.4, Aspartate Amino Transf (AST/SGOT) 21 , Alanine Aminotransferase (ALT/SGPT) 36, Alkaline Phosphatase 92, Total Bilirubin 0.7, Total Protein 6.7, Albumin 3.2, Albumin/Globulin Ratio 0.91L Current Medications Current Medications Current Medications Acetaminophen (Tylenol Tab) 650 mg Q6HP PRN PO PAIN OR FEVER Last administered on 01/15/17 20:13; Start 01/01/17 at 15:45; Stop 01/31/17 at 15:44 Al Hydrox/Mg Hydrox/Simethicone (Mylanta) 30 ml Q6HP PRN PO INDIGESTION; Start 01/09/17 at 10:00; Stop 02/08/17 at 09:59 Bisacodyl (Dulcolax Suppository) 10 mg DAILYPRN PRN [place] CONSTIPATION; Start at 15:45; Stop 01/31/17 at 15:44 Ciprofloxacin (Cipro) 250 mg BID@06,18 PO Last administered on 01/09/17 06:31 ; Start 01/07/17 at 18:00; Stop 01/09/17 at 06:01; Status DC Ciprofloxacin 200 mg/IV Miscellaneous Supplies 100 ml @ 100 mls/hr Q12H IV Last administered on 01/07/17 04:05; Start 01/02/17 at 16:00; Stop 01/07/17 at 11:21; Status DC Docusate Sodium (Colace) 100 mg BID PO Last administered on 01/10/17 09:33; Start 01/01/17 at 21:00; Stop 01/11/17 at 10:01; Status DC Ferrous Sulfate (Ferrous Sulfate) 325 mg DAILY PO Last administered on 07:44; Start 01/02/17 at 09:00; Stop 02/01/17 at 08:59 Home Med (Med Rec Complete!) ASDIRECTED XX ; Start 01/01/17 at 16:00; Stop at 16:00; Status DC Hydralazine HCl (Apresoline) 10 mg Q6H PO Last administered on 01/16/17 05:53 ; Start 01/01/17 at 18:00; Stop 01/31/17 at 17:59 Hydrochlorothiazide (Hydrodiuril) 25 mg DAILY PO Last administered on 08:36; Start 01/02/17 at 09:00; Stop 01/08/17 at 10:14; Status DC Levothyroxine Sodium (Synthroid) 88 mcg DAILY@06 PO Last administered on 05:52; Start 01/02/17 at 06:00; Stop 02/01/17 at 05:59 Magnesium Hydroxide (Milk Of Magnesia) 30 ml DAILYPRN PRN PO CONSTIPATION Last administered on 01/03/17 16:38; Start 01/03/17 at 16:00; Stop 02/02/17 at 15: 59 Pantoprazole Sodium (Protonix) 40 mg DAILY PO Last administered on 01/16/17 07:44; Start 01/02/17 at 09:00; Stop 02/01/17 at 08:59 Polyethylene Glycol (Miralax) 1 pkt DAILY PO Last administered on 01/10/17 09: 33; Start 01/04/17 at 09:00; Stop 01/11/17 at 10:01; Status DC Potassium Chloride (Micro-K Extencaps) 10 meq DAILY PO ; Start 01/17/17 at 09: 00; Stop 02/16/17 at 08:59 Potassium Chloride (Micro-K Extencaps) 20 meq BID PO Last administered on 01/16 09:02; Start 01/16/17 at 09:00; Stop 01/16/17 at 21:01 Simvastatin (Zocor) 20 mg QHS PO Last administered on 01/15/17 20:13; Start 01/01/17 at 21:00; Stop 01/31/17 at 20:59 Sodium Biphosphate/ Sodium Phosphate (Fleet Enema) 1 ea DAILYPRN PRN AL CONSTIPATION; Start 01/01/17 at 15:45; Stop 01/31/17 at 15:44 Tamsulosin HCl (Flomax) 0.4 mg QHS PO Last administered on 01/15/17 20:13; Start 01/07/17 at 21:00; Stop 02/06/17 at 20:59 Tramadol HCl (Ultram) 50 mg Q4HP PRN PO MODERATE/SEVERE PAIN (PS 5-10) Last administered on 01/06/17 13:32; Start 01/01/17 at 15:45; Stop 01/14/17 at 23:55 ; Status DC JAVI SMITH MD Jan 16, 2017 10:30
[2017-01-16 14:00] VITALS: BP 136/64
[2017-01-16 20:28] VITALS: BP 147/73
[2017-01-16] MEDS: SIMVASTATIN 20 MG TAB PO SCH (21:07)
[2017-01-16] MEDS: TAMSULOSIN 0.4 MG CAP PO SCH (21:07)
[2017-01-16] MEDS: ACETAMINOPHEN TAB 650MG DOSE (2X325MG) PO PRN (21:33)
[2017-01-17] MEDS: **hydrALAZINE** 10 MG TAB PO SCH ×4 (00:12→18:49)
[2017-01-17 06:00] VITALS: BP 140/67
[2017-01-17] MEDS: LEVOTHYROXINE 88MCG TABLET (0.088 MG) PO SCH (06:35)
[2017-01-17 07:38] LABS: CALCIUM LEVEL 8.7 MG/DL (8.8-10.2); CREATININE FOR GFR 1.12 MG/DL (0.55-1.02); GLOMERULAR FILTRATION RATE 49.6 (>32); POTASSIUM SERUM 4.2 MEQ/L (3.5-5.1)
[2017-01-17] MEDS: PANTOPRAZOLE 40MG TAB (PROTONIX) PO SCH (08:16)
[2017-01-17] MEDS: FERROUS SULFATE 325MG TAB PO SCH (08:16)
[2017-01-17] MEDS: POTASSIUM CHLORIDE 10 MEQ SR TABLET PO SCH (08:17)
--- NOTE | 2017-01-17 11:29 | IPNPDOC ---
Stereo Plotter Operator Progress Note DATE OF SERVICE: 01/17/17 DATE OF ADMISSION: Jan 01, 2017 at 15:30 INPATIENT REHABILITATION ADMISSION DAY: #17 SUBJECTIVE: The patient is an 81-year-old white female who on 12/22/2016 presented to [facility] emergency room with severe hypertension and left sided motor findings. CT scan of the head showed the intracranial and intraparenchymal hemorrhage of the Right Frontal Lobe with midline shift that increased a little over the next 3 days. Patient admitted for trial of neuro rehabilitation with physical, occupational and speech language therapies. Medicine team to watch fluids, renal function, anemia this weekend. No complaints today. ALLERGIES: See Below MEDICATIONS: Reviewed, see below. OBJECTIVE: VITAL SIGNS: Please see below. PHYSICAL EXAMINATION: GENERAL: Short overweight elderly white female in no acute distress in good spirits and alert and well oriented. HEENT: Minimal left facial droop with slight left tongue deviation and speech quality shows no dysarthria today. CARDIOVASCULAR: Regular rate and rhythm with normal S1-S2 without S3-S4 murmurs or rubs. 2/4 bilateral radial pulses. LUNGS: All bosch clear to auscultation. ABDOMEN: Non-tender without masses and normal bowel sounds present in all quadrants. NEUROLOGICAL: Patient is alert and oriented 4. Speech is clear coherent and appropriate with minimal dysarthria. Right body motor intact. Fair to good minus left lower extremity motor. 3+/5 left shoulder girdle and 3/5 biceps / 3-/ 5 triceps and antigravital hand and wrist movements. Tone remains in left upper and lower extremity and the classic hemiparetic pattern. facial and oral control much improved with almost no droop on left today. SKIN: Grossly intact. LABORATORY DATA: Reviewed. Please see below. MICROBIOLOGY: Please see below. IMAGING: No new imaging. DVT prophylaxis ordered?: Patient currently using ANGELICA hose and sequential stockings with medications limited by risk of progressing the internal cranial hemorrhage. ASSESSMENT AND PLAN: 1. 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 Patient has a very supportive family. Her attention, energy, facial muscular control are improving steadily. She is compensating for the visual sensory deficits as well. Left Upper & Lower Extremity motor control is also improving. 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 She is principally Supervision to Min. Assist in her ADL's. Endurance is progressing.Patient progressing well with L UE & LE motor recovery , now with hand and wrist movements. Also oromotor control is better for handling water so, TUBE BENDER HAND recommends a Free Water Protocol and doing better with the hydration on swallowing exercises this morning in TUBE BENDER HAND. Patient becoming more assertive and important that family rest now to be able to help her when she returns to home. Anticipated Discharge date is 01/22/17. REHAB. TEAM ROUNDS: Patient continues to progress in all disciplines and is on pace to meet discharge goal for 01/22/17. To advance her on diet/fluids we will get a Cookie Swallow: Modified Barium swallow study tomorrow morning. 2. Acute on chronic renal disease: Patient presents on 01/17/17 with BUN and creatinine that are 27 & 1.12. We continue to follow. 3. Anemia H&H is 9.7 and 31.7 on 01/16/17. We will continue to observe. 4. Constipation: Patient with regularity. We will continue to watch. She may use PRN MOM and Dulcolax 5. UTI: Uc&s shows Proteus Mirabilis that was present at admission. It is sensitive to Levaquin, so Cipro IV should work. On CBC the WBC is still normal and patient without fevers. Patient completed Cipro trial no fevers now with normal WBC 6.2K. I have started trial of Flomax 0.4mg QHS for retention that appears to be helping. TIME SPENT: Chart Review, examination and documentation require greater than 25 minutes. Allergies Coded Allergies: Amoxicillin (Verified Allergy, Mild, rash, 12/22/16) rash Chocolate (Verified Allergy, Mild, itching, 12/27/16) Vital Signs Vital Signs Date Time Temp Pulse Resp B/P (MAP) Pulse Ox O2 Delivery O2 Flow Rate FiO2 01/17/17 06:35 140/67 01/17/17 06:00 98.2 67 18 95 Room Air Laboratory Data CBC/BMP Laboratory Tests 01/17/17 06:53 Calcium Level 8.7 L Labs 24H Laboratory Tests 2 01/17/17 06:53: Anion Gap 6L, Glomerular Filtration Rate 49.6, Blood Urea Nitrogen 27H, Creatinine 1.12H, Sodium Level 145, Potassium Level 4.2#, Chloride Level 111H, Carbon Dioxide Level 28, Calcium Level 8.7L Current Medications Current Medications Current Medications Acetaminophen (Tylenol Tab) 650 mg Q6HP PRN PO PAIN OR FEVER Last administered on 01/16/17 21:33; Start 01/01/17 at 15:45; Stop 01/31/17 at 15:44 Al Hydrox/Mg Hydrox/Simethicone (Mylanta) 30 ml Q6HP PRN PO INDIGESTION; Start 01/09/17 at 10:00; Stop 02/08/17 at 09:59 Bisacodyl (Dulcolax Suppository) 10 mg DAILYPRN PRN [place] CONSTIPATION; Start at 15:45; Stop 01/31/17 at 15:44 Ciprofloxacin (Cipro) 250 mg BID@06,18 PO Last administered on 01/09/17 06:31 ; Start 01/07/17 at 18:00; Stop 01/09/17 at 06:01; Status DC Ciprofloxacin 200 mg/IV Miscellaneous Supplies 100 ml @ 100 mls/hr Q12H IV Last administered on 01/07/17 04:05; Start 01/02/17 at 16:00; Stop 01/07/17 at 11:21; Status DC Docusate Sodium (Colace) 100 mg BID PO Last administered on 01/10/17 09:33; Start 01/01/17 at 21:00; Stop 01/11/17 at 10:01; Status DC Ferrous Sulfate (Ferrous Sulfate) 325 mg DAILY PO Last administered on 08:16; Start 01/02/17 at 09:00; Stop 02/01/17 at 08:59 Home Med (Med Rec Complete!) ASDIRECTED XX ; Start 01/01/17 at 16:00; Stop at 16:00; Status DC Hydralazine HCl (Apresoline) 10 mg Q6H PO Last administered on 01/17/17 06:35 ; Start 01/01/17 at 18:00; Stop 01/31/17 at 17:59 Hydrochlorothiazide (Hydrodiuril) 25 mg DAILY PO Last administered on 08:36; Start 01/02/17 at 09:00; Stop 01/08/17 at 10:14; Status DC Levothyroxine Sodium (Synthroid) 88 mcg DAILY@06 PO Last administered on 06:35; Start 01/02/17 at 06:00; Stop 02/01/17 at 05:59 Magnesium Hydroxide (Milk Of Magnesia) 30 ml DAILYPRN PRN PO CONSTIPATION Last administered on 01/03/17 16:38; Start 01/03/17 at 16:00; Stop 02/02/17 at 15: 59 Pantoprazole Sodium (Protonix) 40 mg DAILY PO Last administered on 01/17/17 08:16; Start 01/02/17 at 09:00; Stop 02/01/17 at 08:59 Polyethylene Glycol (Miralax) 1 pkt DAILY PO Last administered on 01/10/17 09: 33; Start 01/04/17 at 09:00; Stop 01/11/17 at 10:01; Status DC Potassium Chloride (Micro-K Extencaps) 10 meq DAILY PO Last administered on 08:17; Start 01/17/17 at 09:00; Stop 02/16/17 at 08:59 Potassium Chloride (Micro-K Extencaps) 20 meq BID PO Last administered on 01/16 21:07; Start 01/16/17 at 09:00; Stop 01/16/17 at 21:01; Status DC Simvastatin (Zocor) 20 mg QHS PO Last administered on 01/16/17 21:07; Start 01/01/17 at 21:00; Stop 01/31/17 at 20:59 Sodium Biphosphate/ Sodium Phosphate (Fleet Enema) 1 ea DAILYPRN PRN [place] CONSTIPATION; Start 01/01/17 at 15:45; Stop 01/31/17 at 15:44 Tamsulosin HCl (Flomax) 0.4 mg QHS PO Last administered on 01/16/17 21:07; Start 01/07/17 at 21:00; Stop 02/06/17 at 20:59 Tramadol HCl (Ultram) 50 mg Q4HP PRN PO MODERATE/SEVERE PAIN (PS 5-10) Last administered on 01/06/17 13:32; Start 01/01/17 at 15:45; Stop 01/14/17 at 23:55 ; Status DC JAVI SMITH MD Jan 17, 2017 11:29
[2017-01-17 14:00] VITALS: BP 141/65
[2017-01-17 21:31] VITALS: BP 136/72
[2017-01-17] MEDS: ACETAMINOPHEN TAB 650MG DOSE (2X325MG) PO PRN (22:03)
[2017-01-17] MEDS: SIMVASTATIN 20 MG TAB PO SCH (22:03)
[2017-01-17] MEDS: TAMSULOSIN 0.4 MG CAP PO SCH (22:03)
[2017-01-18] MEDS: **hydrALAZINE** 10 MG TAB PO SCH ×5 (00:33→23:24)
[2017-01-18 06:00] VITALS: BP 132/63
[2017-01-18] MEDS: LEVOTHYROXINE 88MCG TABLET (0.088 MG) PO SCH (06:55)
[2017-01-18] MEDS: ACETAMINOPHEN TAB 650MG DOSE (2X325MG) PO PRN ×2 (06:56→21:29)
[2017-01-18 07:35] LABS: CALCIUM LEVEL 8.4 MG/DL (8.8-10.2); CREATININE FOR GFR 1.08 MG/DL (0.55-1.02); GLOMERULAR FILTRATION RATE 51.7 (>32); POTASSIUM SERUM 4.2 MEQ/L (3.5-5.1)
[2017-01-18] MEDS: PANTOPRAZOLE 40MG TAB (PROTONIX) PO SCH (08:47)
[2017-01-18] MEDS: FERROUS SULFATE 325MG TAB PO SCH (08:47)
[2017-01-18] MEDS: POTASSIUM CHLORIDE 10 MEQ SR TABLET PO SCH (08:47)
[2017-01-18] MEDS ORDERED: VARIBAR NECTAR 40% w/v 240ML SUSP BTL As Ordered ONE (10:45)
[2017-01-18] MEDS ORDERED: E-Z-PAQUE 96% w/w SUSP 176GM BTL As Ordered ONE (10:45)
[2017-01-18] MEDS ORDERED: VARIBAR PUDDING 40% w/v 230ML TUBE As Ordered ONE (10:45)
--- NOTE | 2017-01-18 13:17 | IPNPDOC ---
PM&R Progress Note Ground Operations Supervisor Progress Note DATE OF SERVICE: 01/18/17 DATE OF ADMISSION: Jan 01, 2017 at 15:30 INPATIENT REHABILITATION ADMISSION DAY: #18 SUBJECTIVE: The patient is an 81-year-old white female who [facility] severe hypertension and left sided motor findings. CT scan of the head showed the intracranial and intraparenchymal hemorrhage of the Right Frontal Lobe with midline shift that increased a little over the next 3 days. Patient admitted for trial of neuro rehabilitation with physical, occupational and speech language therapies. Medicine team to watch fluids, renal function, anemia this weekend. No complaints today. ALLERGIES: See Below MEDICATIONS: Reviewed, see below. OBJECTIVE: VITAL SIGNS: Please see below. PHYSICAL EXAMINATION: GENERAL: Short overweight elderly white female in no acute distress in good spirits and alert and well oriented. HEENT: Minimal left facial droop with slight left tongue deviation and speech quality shows no dysarthria today. CARDIOVASCULAR: Regular rate and rhythm with normal S1-S2 without S3-S4 murmurs or rubs. 2/4 bilateral radial pulses. LUNGS: All bosch clear to auscultation. ABDOMEN: Non-tender without masses and normal bowel sounds present in all quadrants. NEUROLOGICAL: Patient is alert and oriented 4. Speech is clear coherent and appropriate with minimal dysarthria. Right body motor intact. Fair to good minus left lower extremity motor. 3+/5 left shoulder girdle and 3/5 biceps / 3-/ 5 triceps and antigravital hand and wrist movements. Tone remains in left upper and lower extremity and the classic hemiparetic pattern. facial and oral control much improved with almost no droop on left today. SKIN: Grossly intact. LABORATORY DATA: Reviewed. Please see below. MICROBIOLOGY: Please see below. IMAGING: Cookie Swallow Modified Barium swallow report pending. However, patient did well and recommended upgrade in diet and liquids. DVT prophylaxis ordered?: Patient currently using ANGELICA hose and sequential stockings with medications limited by risk of progressing the internal cranial hemorrhage. ASSESSMENT AND PLAN: 1. 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 Patient has a very supportive family. Her attention, energy, facial muscular control are improving steadily. She is compensating for the visual sensory deficits as well. Left Upper & Lower Extremity motor control is also improving. 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 She is principally Supervision to Min. Assist in her ADL's. Endurance is progressing.Patient progressing well with L UE & LE motor recovery , now with hand and wrist movements. Also oromotor control is better for handling water so, TV TECHNICIAN recommends a Free Water Protocol and doing better with the hydration on swallowing exercises. Swallow study went well 01/18/17 and patient advanced to Mechanical Soft III with thin liquids. Patient becoming more assertive. Anticipated Discharge date is 01/22/17. 2. Acute on chronic renal disease: Patient presents on 01/17/17 with BUN and creatinine that are 25 & 1.08. We continue to follow. 3. Anemia H&H is 9.7 and 31.7 on 01/16/17. We will continue to observe. 4. Constipation: Patient with regularity. We will continue to watch. She may use PRN MOM and Dulcolax 5. UTI: Uc&s shows Proteus Mirabilis that was present at admission. It is sensitive to Levaquin, so Cipro IV should work. On CBC the WBC is still normal and patient without fevers. Patient completed Cipro trial no fevers now with normal WBC 6.2K. I have started trial of Flomax 0.4mg QHS for retention that appears to be helping. TIME SPENT: Chart Review, examination and documentation require greater than 25 minutes. Allergies Coded Allergies: Amoxicillin (Verified Allergy, Mild, rash, 12/22/16) rash Chocolate (Verified Allergy, Mild, itching, 12/27/16) Vital Signs Vital Signs Date Time Temp Pulse Resp B/P (MAP) Pulse Ox O2 Delivery O2 Flow Rate FiO2 01/18/17 12:20 128/72 01/18/17 06:00 98.9 68 18 99 Room Air Laboratory Data CBC/BMP Laboratory Tests 01/18/17 07:07 Calcium Level 8.4 L Labs 24H Laboratory Tests 2 01/18/17 07:07: Anion Gap 5L, Glomerular Filtration Rate 51.7, Blood Urea Nitrogen 25H, Creatinine 1.08H, Sodium Level 144, Potassium Level 4.2, Chloride Level 112H, Carbon Dioxide Level 27, Calcium Level 8.4L Current Medications Current Medications Current Medications Acetaminophen (Tylenol Tab) 650 mg Q6HP PRN PO PAIN OR FEVER Last administered on 01/18/17 06:56; Start 01/01/17 at 15:45; Stop 01/31/17 at 15:44 Al Hydrox/Mg Hydrox/Simethicone (Mylanta) 30 ml Q6HP PRN PO INDIGESTION; Start 01/09/17 at 10:00; Stop 02/08/17 at 09:59 Bisacodyl (Dulcolax Suppository) 10 mg DAILYPRN PRN [place] CONSTIPATION; Start at 15:45; Stop 01/31/17 at 15:44 Ciprofloxacin (Cipro) 250 mg BID@06,18 PO Last administered on 01/09/17 06:31 ; Start 01/07/17 at 18:00; Stop 01/09/17 at 06:01; Status DC Ciprofloxacin 200 mg/IV Miscellaneous Supplies 100 ml @ 100 mls/hr Q12H IV Last administered on 01/07/17 04:05; Start 01/02/17 at 16:00; Stop 01/07/17 at 11:21; Status DC Docusate Sodium (Colace) 100 mg BID PO Last administered on 01/10/17 09:33; Start 01/01/17 at 21:00; Stop 01/11/17 at 10:01; Status DC Ferrous Sulfate (Ferrous Sulfate) 325 mg DAILY PO Last administered on 08:47; Start 01/02/17 at 09:00; Stop 02/01/17 at 08:59 Home Med (Med Rec Complete!) ASDIRECTED XX ; Start 01/01/17 at 16:00; Stop at 16:00; Status DC Hydralazine HCl (Apresoline) 10 mg Q6H PO Last administered on 01/18/17 12:20 ; Start 01/01/17 at 18:00; Stop 01/31/17 at 17:59 Hydrochlorothiazide (Hydrodiuril) 25 mg DAILY PO Last administered on 08:36; Start 01/02/17 at 09:00; Stop 01/08/17 at 10:14; Status DC Levothyroxine Sodium (Synthroid) 88 mcg DAILY@06 PO Last administered on 06:55; Start 01/02/17 at 06:00; Stop 02/01/17 at 05:59 Magnesium Hydroxide (Milk Of Magnesia) 30 ml DAILYPRN PRN PO CONSTIPATION Last administered on 01/03/17 16:38; Start 01/03/17 at 16:00; Stop 02/02/17 at 15: 59 Pantoprazole Sodium (Protonix) 40 mg DAILY PO Last administered on 01/18/17 08:47; Start 01/02/17 at 09:00; Stop 02/01/17 at 08:59 Polyethylene Glycol (Miralax) 1 pkt DAILY PO Last administered on 01/10/17 09: 33; Start 01/04/17 at 09:00; Stop 01/11/17 at 10:01; Status DC Potassium Chloride (Micro-K Extencaps) 10 meq DAILY PO Last administered on 08:47; Start 01/17/17 at 09:00; Stop 02/16/17 at 08:59 Potassium Chloride (Micro-K Extencaps) 20 meq BID PO Last administered on 01/16 21:07; Start 01/16/17 at 09:00; Stop 01/16/17 at 21:01; Status DC Simvastatin (Zocor) 20 mg QHS PO Last administered on 01/17/17 22:03; Start 01/01/17 at 21:00; Stop 01/31/17 at 20:59 Sodium Biphosphate/ Sodium Phosphate (Fleet Enema) 1 ea DAILYPRN PRN [place] CONSTIPATION; Start 01/01/17 at 15:45; Stop 01/31/17 at 15:44 Tamsulosin HCl (Flomax) 0.4 mg QHS PO Last administered on 01/17/17 22:03; Start 01/07/17 at 21:00; Stop 02/06/17 at 20:59 Tramadol HCl (Ultram) 50 mg Q4HP PRN PO MODERATE/SEVERE PAIN (PS 5-10) Last administered on 01/06/17 13:32; Start 01/01/17 at 15:45; Stop 01/14/17 at 23:55 ; Status DC JAVI SMITH MD Jan 18, 2017 13:17
[2017-01-18 14:00] VITALS: BP 144/64
[2017-01-18] MEDS ORDERED: LORATADINE 10 MG TAB PO PRN (16:15)
--- NOTE | 2017-01-18 17:46 | REP ---
COOKIE SWALLOW: The procedure was performed under the direct supervision of Dr. Gutiérrez. The procedure was performed with Yohana Fitzgerald from speech pathology present. 5 mL aliquots of thin soft fruit consistency and solid consistency barium was administered. There is penetration with thin consistency barium. A detailed report of this examination will be provided by speech pathology. 53 seconds of fluoroscopy time was utilized for this procedure. Reviewed by ALEX Marks 01/21/2017 04:58 PEdited and Signed by Yinka Gutiérrez MD 01/28/2017 07:53 A
[2017-01-18 20:00] VITALS: BP 150/65
[2017-01-18] MEDS: TAMSULOSIN 0.4 MG CAP PO SCH (21:29)
[2017-01-18] MEDS: SIMVASTATIN 20 MG TAB PO SCH (21:29)
[2017-01-18] MEDS: MOM 30ML SUSPENSION UDC PO PRN (21:35)
[2017-01-19] MEDS: LEVOTHYROXINE 88MCG TABLET (0.088 MG) PO SCH (05:57)
[2017-01-19] MEDS: **hydrALAZINE** 10 MG TAB PO SCH ×3 (05:57→17:08)
[2017-01-19 06:00] VITALS: BP 150/67
[2017-01-19 07:02] LABS: CALCIUM LEVEL 8.7 MG/DL (8.8-10.2); CREATININE FOR GFR 1.02 MG/DL (0.55-1.02); GLOMERULAR FILTRATION RATE 55.2 (>32); POTASSIUM SERUM 4.1 MEQ/L (3.5-5.1)
[2017-01-19] MEDS: FERROUS SULFATE 325MG TAB PO SCH (08:16)
[2017-01-19] MEDS: POTASSIUM CHLORIDE 10 MEQ SR TABLET PO SCH (08:16)
[2017-01-19] MEDS: PANTOPRAZOLE 40MG TAB (PROTONIX) PO SCH (08:16)
[2017-01-19 12:03] VITALS: BP 130/72
[2017-01-19 14:00] VITALS: BP 136/65
[2017-01-19 16:53] VITALS: BP 140/70
[2017-01-19 20:10] VITALS: BP 160/68
[2017-01-19] MEDS: ACETAMINOPHEN TAB 650MG DOSE (2X325MG) PO PRN (21:35)
[2017-01-19] MEDS: TAMSULOSIN 0.4 MG CAP PO SCH (21:35)
[2017-01-19] MEDS: SIMVASTATIN 20 MG TAB PO SCH (21:35)
[2017-01-20] MEDS: **hydrALAZINE** 10 MG TAB PO SCH ×4 (00:37→17:01)
[2017-01-20 06:00] VITALS: BP 151/68
[2017-01-20] MEDS: LEVOTHYROXINE 88MCG TABLET (0.088 MG) PO SCH (06:00)
[2017-01-20 06:52] LABS: CALCIUM LEVEL 8.1 MG/DL (8.8-10.2); CREATININE FOR GFR 1.11 MG/DL (0.55-1.02); GLOMERULAR FILTRATION RATE 50.1 (>32)
[2017-01-20] MEDS: PANTOPRAZOLE 40MG TAB (PROTONIX) PO SCH (08:49)
[2017-01-20] MEDS: FERROUS SULFATE 325MG TAB PO SCH (08:49)
[2017-01-20] MEDS: POTASSIUM CHLORIDE 10 MEQ SR TABLET PO SCH (08:49)
[2017-01-20 11:58] VITALS: BP 138/70
[2017-01-20 14:00] VITALS: BP 137/68
[2017-01-20 17:00] VITALS: BP 138/82
[2017-01-20 19:45] VITALS: BP 145/68
[2017-01-20] MEDS: SIMVASTATIN 20 MG TAB PO SCH (20:40)
[2017-01-20] MEDS: TAMSULOSIN 0.4 MG CAP PO SCH (20:40)
[2017-01-20] MEDS: ACETAMINOPHEN TAB 650MG DOSE (2X325MG) PO PRN (20:40)
[2017-01-21] MEDS: **hydrALAZINE** 10 MG TAB PO SCH ×4 (00:54→17:50)
[2017-01-21] MEDS: LEVOTHYROXINE 88MCG TABLET (0.088 MG) PO SCH (06:00)
[2017-01-21 06:01] VITALS: BP 134/81
[2017-01-21 06:59] LABS: MEAN CORPUSCULAR HEMOGLOBIN 29.9 pg (27.0-33.0); MEAN CORPUSCULAR HGB CONC 31.1 g/dl (32.0-36.5); WHITE BLOOD COUNT 3.6 10^3/uL (4.0-10.0)
[2017-01-21 07:25] LABS: CALCIUM LEVEL 8.5 MG/DL (8.8-10.2); CREATININE FOR GFR 1.09 MG/DL (0.55-1.02); GLOMERULAR FILTRATION RATE 51.2 (>32); POTASSIUM SERUM 3.9 MEQ/L (3.5-5.1)
[2017-01-21] MEDS: FERROUS SULFATE 325MG TAB PO SCH (09:09)
[2017-01-21] MEDS: POTASSIUM CHLORIDE 10 MEQ SR TABLET PO SCH (09:09)
[2017-01-21] MEDS: PANTOPRAZOLE 40MG TAB (PROTONIX) PO SCH (09:09)
[2017-01-21] MEDS ORDERED: FLOM5CAP PO (10:44)
[2017-01-21] MEDS ORDERED: CLAR1TAB2 PO (10:44)
[2017-01-21] MEDS ORDERED: POTA10CA PO (10:44)
--- NOTE | 2017-01-21 11:14 | IPNPDOC ---
PM&R Progress Note Primary School Principal Progress Note DATE OF SERVICE: 01/21/17 DATE OF ADMISSION: Jan 01, 2017 at 15:30 INPATIENT REHABILITATION ADMISSION DAY: #21 SUBJECTIVE: The patient is an 81-year-old white female who on 12/22/2016 presented to [facility] emergency room with severe hypertension and left sided motor findings. CT scan of the head showed the intracranial and intraparenchymal hemorrhage of the Right Frontal Lobe with midline shift that increased a little over the next 3 days. Patient admitted for trial of neuro rehabilitation with physical, occupational and speech language therapies. Medicine team to watch fluids, renal function, anemia this weekend. No complaints today. ALLERGIES: See Below MEDICATIONS: Reviewed, see below. OBJECTIVE: VITAL SIGNS: Please see below. PHYSICAL EXAMINATION: GENERAL: Short overweight elderly white female in no acute distress in good spirits and alert and well oriented. HEENT: Minimal left facial droop with slight left tongue deviation and speech quality shows no dysarthria today. CARDIOVASCULAR: Regular rate and rhythm with normal S1-S2 without S3-S4 murmurs or rubs. 2/4 bilateral radial pulses. LUNGS: All bosch clear to auscultation. ABDOMEN: Non-tender without masses and normal bowel sounds present in all quadrants. NEUROLOGICAL: Patient is alert and oriented 4. Speech is clear coherent and appropriate with minimal dysarthria. Right body motor intact. Fair to good minus left lower extremity motor. 4/5 left shoulder girdle and 4/5 biceps, 4-/5 triceps and 3+/5 hand flexors and 3-/5 hand extensors movements. Less tone remains in left upper and lower extremity and the classic hemiparetic pattern of recovery continues. facial and oral control much improved with only occasional left droop seen. SKIN: Grossly intact. LABORATORY DATA: Reviewed. Please see below. MICROBIOLOGY: Please see below. IMAGING: Cookie Swallow Modified Barium swallow report pending. However, patient did well and recommended upgrade in diet and liquids. DVT prophylaxis ordered?: Patient currently using ANGELICA hose and sequential stockings with medications limited by risk of progressing the internal cranial hemorrhage. ASSESSMENT AND PLAN: 1. 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 Patient has a very supportive family. Her attention, energy, facial muscular control are improving steadily. She is compensating for the visual sensory deficits as well. Left Upper & Lower Extremity motor control is also improving. 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 She is principally Supervision to Min. Assist in her ADL's. Endurance is progressing.Patient progressing well with L UE & LE motor recovery , now with hand and wrist movements. Also oromotor control is better for handling water so, LAUNDRY AIDE recommends a Free Water Protocol and doing better with the hydration on swallowing exercises. Swallow study went well 01/18/17 and patient advanced to Mechanical Soft III with thin liquids. Patient becoming more assertive. Anticipated Discharge date is 01/22/17. REHAB. TEAM ROUNDS: Patient has met her discharge goals and will proceed to Home[facility] PT/OT/LAUNDRY AIDE with Nursing monitoring BMP for CKD and K+ levels. Patient to discharge to home with family tomorrow. For different environments she does better with different mobility devices (W/C for distances and fatigued times; FWW for distances and ADL's when not fatigued; Quad Cane for short to moderate distances, stairs and ADL's in narrow spaces) She is tolerating Thin liquids and Mechanical Soft III diet well. Discharge to home with family and HomeCare tomorrow 01/22/17. 2. Acute on chronic renal disease: Patient presents on 01/21/17 with BUN and creatinine that are 20 & 1.09. 3. Anemia H&H is 8.3 and 26.7 on 01/21/17. This appears to be hydration related. 4. Constipation: Patient with regularity. We will continue to watch. She may use PRN MOM and Dulcolax 5. UTI: Uc&s shows Proteus Mirabilis that was present at admission. It is sensitive to Levaquin, so Cipro IV should work. On CBC the WBC is still normal and patient without fevers. Patient completed Cipro trial no fevers now with normal WBC 3.6K. Patient doing well with trial of Flomax 0.4mg QHS for retention. TIME SPENT: Chart Review, examination and documentation require greater than 25 minutes. Allergies Coded Allergies: Amoxicillin (Verified Allergy, Mild, rash, 12/22/16) rash Chocolate (Verified Allergy, Mild, itching, 12/27/16) Vital Signs Vital Signs Date Time Temp Pulse Resp B/P (MAP) Pulse Ox O2 Delivery O2 Flow Rate FiO2 01/21/17 06:03 134/81 01/21/17 06:01 97.8 72 18 97 Room Air Laboratory Data CBC/BMP Laboratory Tests 01/21/17 06:34 Red Blood Count 2.78 L, Mean Corpuscular Volume 96.0, Mean Corpuscular Hemoglobin 29.9, Mean Corpuscular Hemoglobin Concent 31.1 L, Red Cell Distribution Width 14.0, Calcium Level 8.5 L Labs 24H Laboratory Tests 2 01/21/17 06:34: Nucleated Red Blood Cells % (auto) 0.0, Anion Gap 5L, Glomerular Filtration Rate 51.2, Blood Urea Nitrogen 20H, Creatinine 1.09H, Sodium Level 142, Potassium Level 3.9, Chloride Level 109H, Carbon Dioxide Level 28, Calcium Level 8.5L Current Medications Current Medications Current Medications Acetaminophen (Tylenol Tab) 650 mg Q6HP PRN PO PAIN OR FEVER Last administered on 01/20/17 20:40; Start 01/01/17 at 15:45; Stop 01/31/17 at 15:44 Al Hydrox/Mg Hydrox/Simethicone (Mylanta) 30 ml Q6HP PRN PO INDIGESTION; Start 01/09/17 at 10:00; Stop 02/08/17 at 09:59 Bisacodyl (Dulcolax Suppository) 10 mg DAILYPRN PRN [place] CONSTIPATION; Start at 15:45; Stop 01/31/17 at 15:44 Ciprofloxacin (Cipro) 250 mg BID@06,18 PO Last administered on 01/09/17 06:31 ; Start 01/07/17 at 18:00; Stop 01/09/17 at 06:01; Status DC Ciprofloxacin 200 mg/IV Miscellaneous Supplies 100 ml @ 100 mls/hr Q12H IV Last administered on 01/07/17 04:05; Start 01/02/17 at 16:00; Stop 01/07/17 at 11:21; Status DC Docusate Sodium (Colace) 100 mg BID PO Last administered on 01/10/17 09:33; Start 01/01/17 at 21:00; Stop 01/11/17 at 10:01; Status DC Ferrous Sulfate (Ferrous Sulfate) 325 mg DAILY PO Last administered on 09:09; Start 01/02/17 at 09:00; Stop 02/01/17 at 08:59 Home Med (Med Rec Complete!) ASDIRECTED XX ; Start 01/01/17 at 16:00; Stop at 16:00; Status DC Hydralazine HCl (Apresoline) 10 mg Q6H PO Last administered on 01/21/17 06:03 ; Start 01/01/17 at 18:00; Stop 01/31/17 at 17:59 Hydrochlorothiazide (Hydrodiuril) 25 mg DAILY PO Last administered on 08:36; Start 01/02/17 at 09:00; Stop 01/08/17 at 10:14; Status DC Levothyroxine Sodium (Synthroid) 88 mcg DAILY@06 PO Last administered on 06:00; Start 01/02/17 at 06:00; Stop 02/01/17 at 05:59 Loratadine (Claritin) 10 mg DAILY PRN PO ITCHING Last administered on 16:31; Start 01/18/17 at 16:15; Stop 02/17/17 at 16:14 Magnesium Hydroxide (Milk Of Magnesia) 30 ml DAILYPRN PRN PO CONSTIPATION Last administered on 01/18/17 21:35; Start 01/03/17 at 16:00; Stop 02/02/17 at 15: 59 Pantoprazole Sodium (Protonix) 40 mg DAILY PO Last administered on 01/21/17 09:09; Start 01/02/17 at 09:00; Stop 02/01/17 at 08:59 Polyethylene Glycol (Miralax) 1 pkt DAILY PO Last administered on 01/10/17 09: 33; Start 01/04/17 at 09:00; Stop 01/11/17 at 10:01; Status DC Potassium Chloride (Micro-K Extencaps) 10 meq DAILY PO Last administered on 09:09; Start 01/17/17 at 09:00; Stop 02/16/17 at 08:59 Potassium Chloride (Micro-K Extencaps) 20 meq BID PO Last administered on 01/16 21:07; Start 01/16/17 at 09:00; Stop 01/16/17 at 21:01; Status DC Simvastatin (Zocor) 20 mg QHS PO Last administered on 01/20/17 20:40; Start 01/01/17 at 21:00; Stop 01/31/17 at 20:59 Sodium Biphosphate/ Sodium Phosphate (Fleet Enema) 1 ea DAILYPRN PRN [place] CONSTIPATION; Start 01/01/17 at 15:45; Stop 01/31/17 at 15:44 Tamsulosin HCl (Flomax) 0.4 mg QHS PO Last administered on 01/20/17 20:40; Start 01/07/17 at 21:00; Stop 02/06/17 at 20:59 Tramadol HCl (Ultram) 50 mg Q4HP PRN PO MODERATE/SEVERE PAIN (PS 5-10) Last administered on 01/06/17 13:32; Start 01/01/17 at 15:45; Stop 01/14/17 at 23:55 ; Status DC JAVI SMITH MD Jan 21, 2017 11:14
[2017-01-21 14:00] VITALS: BP 145/74
[2017-01-21 20:00] VITALS: BP 150/68
[2017-01-21] MEDS: SIMVASTATIN 20 MG TAB PO SCH (20:36)
[2017-01-21] MEDS: ACETAMINOPHEN TAB 650MG DOSE (2X325MG) PO PRN (20:37)
[2017-01-21] MEDS: TAMSULOSIN 0.4 MG CAP PO SCH (20:37)
[2017-01-22] MEDS: **hydrALAZINE** 10 MG TAB PO SCH ×2 (00:02→05:07)
[2017-01-22] MEDS: LEVOTHYROXINE 88MCG TABLET (0.088 MG) PO SCH (05:03)
[2017-01-22 05:07] VITALS: BP 141/79
[2017-01-22 05:10] VITALS: BP 141/78
[2017-01-22 07:08] LABS: CALCIUM LEVEL 8.7 MG/DL (8.8-10.2); CREATININE FOR GFR 1.02 MG/DL (0.55-1.02); GLOMERULAR FILTRATION RATE 55.2 (>32)
[2017-01-22] MEDS: PANTOPRAZOLE 40MG TAB (PROTONIX) PO SCH (08:31)
[2017-01-22] MEDS: FERROUS SULFATE 325MG TAB PO SCH (08:31)
[2017-01-22] MEDS: POTASSIUM CHLORIDE 10 MEQ SR TABLET PO SCH (08:31)
[2017-01-22] MEDS ORDERED: HYDR10TAB PO (11:28)
[2017-01-22] MEDS ORDERED: SIMV20TA2 PO (11:28)
[2017-01-22] MEDS ORDERED: PANT40TA2 PO (11:28)
[2017-01-22] MEDS ORDERED: FERR1TAB8 PO (11:28)
--- NOTE | 2017-01-22 17:38 | PMRDS ---
DATE OF ADMISSION: 01/01/2017 DATE OF DISCHARGE: 01/22/2017 DISCHARGE DIAGNOSIS: Rehabilitation of right intercerebral hemorrhage cerebrovascular accident (CVA) with midline shift of 3.8 mm and secondary left hemiparesis, ptosis, left visual field cuts, left hemisensory deficits, dysarthria, dysphagia, and some oral apraxia initially. HISTORY: The patient is an 82-year-old white female who is right handed who presented to [facility] on 12/22/2016 with onset of severe hypertension and left-sided motor findings. She was found to have had a right frontal lobe hemorrhagic cerebrovascular accident (CVA) with midline shift that increased over the next couple of days causing left hemiparesis and sensory deficits with ptosis, left visual field cuts, diminished balance, dysphagia, dysarthria. The motor deficit was to her nondominant hand and the patient developed on chronic renal failure and her malignant hypertension was brought under control and she is continued in treatment for arthrosclerotic cardiovascular disease including the hypertension, hyperlipidemia. The patient with iron deficiency anemia and also lower extremity edema, hypothyroidism, and the above-mentioned acute on discharge renal disease. The patient was started in physical, occupational and speech therapy. She was nothing by mouth due to the oral motor problems including the dysarthria and marked dysphagia. The patient started progressing and was felt on 01/01/2017 to be able to participate in and benefit from acute intensive rehabilitation of physical therapy, occupational therapy, and speech therapy while having multiple medical problems that required rehabilitation nursing, physiatry and internal medicine monitoring and care, and the patient was admitted to the acute rehabilitation unit (ARU) on 01/01/2017. PROCEDURE PERFORMED: The patient had cookie swallows, in example modified barium multi-food texture and liquid consistency evaluations done on 01/09/2017 and 01/18/2017 with advancing of her diet at these times. DIAGNOSTIC AND LABORATORY DATA: Hemoglobin and hematocrit on admission 10.3 and 32.8 increased by some dehydration and concentration with normal MCV and platelet counts, and at discharge being 8.3 and 26.7 while maintaining good blood pressures and still having normal MCV and platelet counts. Chemistry: The patient on admission with elevation of chloride at 108, otherwise normal electrolytes and BUN elevated at 48, creatinine 1.37, and at discharge, chloride is still elevated at 109, BUN improved to 19, and creatinine inside the normal range at 1.02. Calcium has been somewhat low throughout admission, currently 8.7 but albumin initially low has recovered to 3.2 when last checked. The patient on admission was found to have a UTI with Proteus mirabilis and was treated for this with Cipro. HOSPITAL COURSE: The patient admitted on 01/01/2017 and evaluated by physical, occupational and speech therapy. Urinary tract infection discovered on admission and treated successfully. The patient progressing from minimal assist in most transfers with standby assist bed to chair and moderate assist toilet commode and total assist in bathing, moderate assist in upper body dressing, total assist lower body dressing, moderate assist in grooming, total assist in toileting with fair plus to fair minus balance on sitting and standing static and dynamic testings to modified independence in virtually all transfers except tub/shower standby assist, bathing is modified independence, dressing upper and lower body is modified independence, grooming modified independence, and balance sitting good for static and dynamic and standing good minus for static and dynamic. In physical therapy (PT), patient maximum assist to roll to the right, contact guard to roll to the left to modified independence, and not ambulating and not able to do stairs to wheelchair independence and mobility ambulating greater than 150 feet times two with quad cane and greater distances with wheelchair and able to do four stairs with contact guard assistance and railing on the right, and speech therapy going from nothing by mouth to mechanical soft level 3 with thin liquids after starting on pureed and nectar-thick liquids shortly after admission. Speech is clear. Facial droop has cleared, though there is very mild eye droop present. There remains some visual field cuts to the left and mild decrease in sensorium. The patient's spirits are good and her motivation and her endurance have markedly improved as has her balance as evidenced by her increasing mobility. Family has been trained. The patient and family conference held and the patient is felt to be ready to discharge to home with family today. DISCHARGE MEDICATIONS: - iron sulfate 325 mg daily - hydralazine 10 mg every six hours - loratadine 10 mg daily as needed for itching - pantoprazole 40 mg daily for stomach protection - potassium chloride extended release 10 mEq daily - simvastatin 20 mg at bedtime for elevated cholesterol - Flomax 0.4 mg at bedtime for urinary retention which responded well to it - Tylenol 650 mg every four hours as needed for fever or pain - Colace 100 mg twice a day as needed for constipation - Synthroid 88 mcg daily for hypothyroidism COMPLICATIONS: None. DISCHARGE PLAN: Patient to see Dr. Sabra Doty within a week. Also [facility] to come and assess the patient for home care including every Saturday and basic metabolic panels (BMPs) to follow her kidney disease and her potassium levels along with home care physical therapy (PT), occupational therapy (OT), and speech therapies. TIME SPENT ON DISCHARGE: Greater than 35 minutes.
== END 2017-01-22 11:45 | disposition home health service (06) | DRG 57 ==
LOC: M PM&R 15:30
PROVIDERS: ADMIT Physical Medicine & Rehabilitation; ATTEND Physical Medicine & Rehabilitation
DX: I69.354 Hemiplegia and hemiparesis following cerebral infarction affecting left non-dominant side (principal); N39.0 Urinary tract infection, site not specified; I69.322 Dysarthria following cerebral infarction; I69.391 Dysphagia following cerebral infarction; I69.392 Facial weakness following cerebral infarction; E03.9 Hypothyroidism, unspecified; B96.4 Proteus (mirabilis) (morganii) as the cause of diseases classified elsewhere; I12.9 Hypertensive chronic kidney disease with stage 1 through stage 4 chronic kidney disease, or unspecified chronic kidney disease; K59.00 Constipation, unspecified; E78.5 Hyperlipidemia, unspecified; D50.9 Iron deficiency anemia, unspecified; N18.3 Chronic kidney disease, stage 3 (moderate); Z88.1 Allergy status to other antibiotic agents; Z91.018 Allergy to other foods; E87.6 Hypokalemia

== ENCOUNTER → 2017-01-28 | Outpatient (REF) | payer MEDICARE ==
[~2017-01-28] MED LIST changes: +AMLO5TAB2 PO; +CHLO125TA PO; +CLAR1TAB2 PO; +FERR1TAB8 PO; +FLOM5CAP PO; +KEPP250T5 PO; +LISI-542 PO; +NYST10CR TOP; +PANT20TA PO; +POTA10CA PO; +ZOCO20TA PO; +ZYRT10CA PO; +ZYRT10TA2 PO
[2017-01-28 18:06] LABS: CALCIUM LEVEL 8.7 MG/DL (8.8-10.2); CREATININE FOR GFR 1.06 MG/DL (0.55-1.02); GLOMERULAR FILTRATION RATE 52.8 (>32); POTASSIUM SERUM 3.9 MEQ/L (3.5-5.1)
== END ==
LOC: M SHH 15:41
PROVIDERS: ATTEND Physical Medicine & Rehabilitation
DX: E87.6 Hypokalemia (principal); N18.9 Chronic kidney disease, unspecified

== ENCOUNTER 2017-02-02 10:12 | Inpatient (IN) | payer MEDICARE ==
[~2017-02-02] VITALS: Ht 149.9 cm; Wt 73.0 kg
[~2017-02-02 10:12] MED LIST changes: -AMLO5TAB2 PO; -CHLO125TA PO; -KEPP250T5 PO; -LISI-542 PO; -NYST10CR TOP; -PANT20TA PO; -ZOCO20TA PO; -ZYRT10CA PO; -ZYRT10TA2 PO
[2017-02-02] MEDS ORDERED: hydrALAZINE INJ 20 MG/ML VIAL IV ONE ×2 (10:30→11:00)
[2017-02-02] MEDS ORDERED: hydrALAZINE INJ 20 MG/ML VIAL As Ordered ONE (10:30)
[2017-02-02] MEDS ORDERED: ZYRT10CA PO (10:35)
[2017-02-02 10:42] LABS: BASO % 0.9 % (0.0-1.0); EOS # 0.2 10^3/uL (0.0-0.50); EOS % 4.7 % (0.0-3.0); IMMATURE GRANULOCYTE % 0.4 % (0-0); LYMPH % 23.3 % (24.0-44.0); MEAN CORPUSCULAR HEMOGLOBIN 30.1 pg (27.0-33.0); MEAN CORPUSCULAR VOLUME 96.8 fl (80.0-96.0); MONO # 0.5 10^3/uL (0.0-0.8); MONO % 11.6 % (0.0-5.0); NEUTROPHILS # 2.6 10^3/uL (1.8-7.7); NEUTROPHILS % 59.1 % (36.0-66.0); PLATELET COUNT, AUTOMATED 241 10^3/uL (150-450); WHITE BLOOD COUNT 4.5 10^3/uL (4.0-10.0)
[2017-02-02] MEDS ORDERED: niCARdipine IV 40 MG in APPROPRIATE DILUENT 1 EA IV SCH (10:58)
[2017-02-02 10:59] LABS: INR 1.05
[2017-02-02] MEDS ORDERED: levETIRAcetam INJection 1,000 MG in D5W 100 ML IV ONE (11:00)
--- NOTE | 2017-02-02 11:12 | REP ---
Portable chest x-ray: Single view. History: CVA. Comparison chest x-ray: December 22, 2016. Findings: Mild cardiomegaly is observed, unchanged. Pulmonary vasculature is cephalized. No free pleural effusion is seen. There are a few Adrian-B lines visible in the right base. No infiltrate seen. No pleural effusion. Impression: Cardiomegaly. Question Adrian-B lines right base. Pulmonary vascular cephalization. Signed by Yinka Gutiérrez MD 02/02/2017 12:08 P
[2017-02-02 11:14] LABS: CALCIUM LEVEL 8.9 MG/DL (8.8-10.2); CREATININE FOR GFR 1.09 MG/DL (0.55-1.02); GLOMERULAR FILTRATION RATE 51.2 (>32)
--- NOTE | 2017-02-02 11:20 | REP ---
CT brain: History: CVA. Comparison study: December 25, 2016. CT findings: The recently noted right frontal lobe parenchymal hematoma has decreased in size and radiographic density in the interval since the December 25, 2016 prior study. There is no observable mass effect now. Minimal adjacent edema is seen. No new hemorrhage is seen. No new infarct is noted. Minimal diffuse atrophy is again seen with small vessel changes. There is mild vascular calcification. Impression: CT findings improved from December 25, 2016 with resolving right frontal lobe parenchymal hematoma in evolution. No new hemorrhage, infarct, mass or midline shift is seen. No extra-axial fluid collection. Signed by Yinka Gutiérrez MD 02/02/2017 12:08 P
[2017-02-02] MEDS ORDERED: ZYRT10TA2 PO (11:35)
[2017-02-02] MEDS ORDERED: FERR325T3 PO (11:35)
[2017-02-02] MEDS ORDERED: POTA10CA PO (11:35)
[2017-02-02] MEDS ORDERED: SYNT88TA2 PO (11:35)
[2017-02-02] MEDS ORDERED: LISI-542 PO (11:35)
[2017-02-02] MEDS ORDERED: ZOCO20TA PO (11:35)
[2017-02-02] MEDS ORDERED: PANT20TA PO (11:35)
[2017-02-02] MEDS ORDERED: NYST10CR TOP (11:38)
[2017-02-02] MEDS ORDERED: ACETAMINOPHEN TAB 650MG DOSE (2X325MG) PO ONE (12:45)
[2017-02-02 15:00] VITALS: BP 140/60
[2017-02-02] MEDS: LISINOPRIL 5 MG TAB PO SCH (15:42)
[2017-02-02] MEDS: LEVOTHYROXINE 88MCG TABLET (0.088 MG) PO SCH (16:04)
[2017-02-02] MEDS: FERROUS SULFATE 325MG TAB PO SCH (16:05)
[2017-02-02] MEDS: NYSTATIN CREAM 15 GM TOP SCH ×2 (18:35→20:42)
--- NOTE | 2017-02-02 18:38 | ECGEPIP ---
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
[2017-02-02] MEDS: PANTOPRAZOLE 20 MG TAB PO SCH (18:55)
[2017-02-02 20:00] VITALS: BP 134/60
--- NOTE | 2017-02-02 20:18 | HPEPDOC ---
General Date of Admission Feb 02, 2017 at 12:52 Primary Care Physician: RADHA XAVIER DO Attending Physician: MAYITO RAMAN MD Chief Complaint The patient is a 82-year-old female admitted with a reason for visit of Seizure. History of Present Illness Patient is a 82-year-old female with past medical history significant for hemorrhagic stroke, hypertension, chronic kidney disease presents to the emergency room following a seizure. Patient stated that she woke up this morning and everything seemed fine. She walked down her hallway with her walker to the kitchen and sat down at the table to have breakfast. At this point she felt her left thumb cramp up. The cramping then progressed to moving up her arm until it felt stiff. Her was making breakfast for her and the family was present to witness. Patient then reports feeling stiff all over and convulsing. Then family members help her lay on the floor on her side. They called 911 and called other family members that live down the street. Family members deny her biting her tongue or vomiting. Family report the patient did have some phlegm. Patient was talking initially but was not talking with patient became stiff and arch her back. This lasted roughly 3-5 minutes. Patient was a little confused at this time. By the time press breaker arrived at the house patient was able to tell them what had happened. In the ER patient seems to remember all the events. On presentation the ER patient's blood pressure was 226/97 mmHg. Patient recently had a hemorrhagic stroke and was admitted to the hospital about a month ago. Patient has been checking her blood pressure regularly at home. On Saturday of this week she visited her primary care physician Dr. Doty and had her blood pressure medication changed. She was originally on hydralazine every 6 hours and this has been switched to lisinopril 5 mg daily. Patient was having a tough time taking the hydralazine every 6 hours. He reports having to wake patient up at midnight and 6 AM for the medication. Patient checked her blood pressure yesterday night and it was systolic of 166 mmHg. Patient was given IV hydralazine to lower the blood pressure. Patient had a CT scan of her head which impression showed CT findings improved from December 25, 2016 with resolving right frontal lobe parenchymal hematoma in evolution. No new hemorrhage, infarct, mass or midline shift is seen. No extra-axial fluid collection. Patient was admitted to hospital service. Home Medications Scheduled Cetirizine HCl (Zyrtec Allergy) 10 Mg Tab, 10 MG PO QHS, (Reported) Ferrous Sulfate (Ferrous Sulfate) 325 Mg Tab, 325 MG PO DAILY, (Reported) LUNCHTIME Levothyroxine Sodium (Synthroid) 88 Mcg Tab, 88 MCG PO QAM, (Reported) Lisinopril (Lisinopril) 5 Mg Tab, 5 MG PO DAILY, (Reported) Nystatin (Nystatin) 100,000 Unit/Gm Cre, 1 DOSE TOP BID, (Reported) APPLY BEHIND EARS Pantoprazole Sodium (Pantoprazole Sodium) 20 Mg Tab, 20 MG PO DAILY, (Reported) Potassium Chloride (Klor-Con M10) 10 Meq Tabcr, 10 MEQ PO DAILY, (Reported) LUNCHTIME Simvastatin (Zocor) 20 Mg Tab, 20 MG PO QHS, (Reported) Allergies Coded Allergies: Amoxicillin (Verified Allergy, Mild, rash, 12/22/16) rash Chocolate (Verified Allergy, Mild, itching, 12/27/16) Past Medical History Medical History Hemorrhagic stroke Hypothyroidism Hypertension Hyperlipidemia Chronic kidney disease Surgical History None Social History * Smoker: Denies Alcohol: Denies Drugs: denies Retired, lives at home with her in one level home. Review of Symptoms Constitutional: Denies: Chills, Fever Eyes: Denies: Pain, Vision change ENT: Reports: Head Aches (forehead, 4-5/10), Other Symptoms (No vertigo or dizziness. ) Pulmonary: Denies: Dyspnea, Cough Cardiovascular: Denies: Chest Pain Gastrointestinal: Denies: Nausea, Vomiting Genitourinary: Denies: Dysuria, Frequency Musculoskeletal: Denies: Neck Pain, Back Pain Neurological: Denies: Numbness Physical Examination General Exam: Positive: Alert, Cooperative, No Acute Distress Eye Exam: Positive: PERRLA, Conjunctiva & lids normal, EOMI, Negative: Ptosis ENT Exam: Positive: Atraumatic Neck Exam: Positive: Supple, Negative: JVD, thyromegaly, Lymphadenopathy Chest Exam: Positive: Clear to auscultation, Negative: Rales, Wheezing Heart Exam: Positive: Rate Normal, Normal S1, Normal S2, Negative: Murmurs, Rubs Abdomen Exam: Positive: Normal bowel sounds, Soft, Negative: Tenderness, Hepatospenomegaly Extremity Exam: Positive: Normal pulses (Radial pulse 2/4 bilaterally. ), Negative: Clubbing, Cyanosis, Edema Neuro Exam: Positive: Sensation Intact, Cranial Nerves 3-12 NL (Some lag in left arm, patient reports pain in left shouldar. ), Other (Muscle strength 4/5 left arm and leg, 5/5 everywhere else. Ankle reflex 4+ on the left. ) Psych Exam: Positive: Oriented x 3 (Orientated to person, place and time. ) Vital Signs Vital Signs Date Time Temp Pulse Resp B/P (MAP) Pulse Ox O2 Delivery O2 Flow Rate FiO2 02/02/17 15:42 140/60 02/02/17 15:00 97.8 66 19 97 Room Air Laboratory Data Labs 24H Laboratory Tests 2 02/02/17 10:31: Immature Granulocyte % (Auto) 0.4H, White Blood Count 4.5, Red Blood Count 3.16L , Hemoglobin 9.5L, Hematocrit 30.6L, Mean Corpuscular Volume 96.8H, Mean Corpuscular Hemoglobin 30.1, Mean Corpuscular Hemoglobin Concent 31.0L, Red Cell Distribution Width 14.0, Platelet Count 241, Neutrophils (%) (Auto) 59.1, Lymphocytes (%) (Auto) 23.3L, Monocytes (%) (Auto) 11.6H, Eosinophils (%) (Auto ) 4.7H, Basophils (%) (Auto) 0.9, Neutrophils # (Auto) 2.6, Lymphocytes # (Auto ) 1.0L, Monocytes # (Auto) 0.5, Eosinophils # (Auto) 0.2, Basophils # (Auto) 0.0 , Immature Granulocyte # (Auto) 0.0, Nucleated Red Blood Cells % (auto) 0.0, Prothrombin Time 13.8, Prothromb Time International Ratio 1.05, Activated Partial Thromboplast Time 27.7, Anion Gap 8, Glomerular Filtration Rate 51.2, Blood Urea Nitrogen 28H, Creatinine 1.09H, Sodium Level 143, Potassium Level 4.0 , Chloride Level 109H, Carbon Dioxide Level 26, Calcium Level 8.9, Total Creatine Kinase 21L, Creatine Kinase MB 1.0, Creatine Kinase MB Relative Index 4.76H, Troponin I 0.02 02/02/17 11:00: Bedside Glucose (Misc Panel) 96 CBC/BMP Laboratory Tests 10/28/17 10:31 Red Blood Count 3.16 L, Mean Corpuscular Volume 96.8 H, Mean Corpuscular Hemoglobin 30.1, Mean Corpuscular Hemoglobin Concent 31.0 L, Red Cell Distribution Width 14.0, Neutrophils (%) (Auto) 59.1, Lymphocytes (%) (Auto) 23.3 L, Monocytes (%) (Auto) 11.6 H, Eosinophils (%) (Auto) 4.7 H, Basophils (% ) (Auto) 0.9, Neutrophils # (Auto) 2.6, Lymphocytes # (Auto) 1.0 L, Monocytes # (Auto) 0.5, Eosinophils # (Auto) 0.2, Basophils # (Auto) 0.0, Calcium Level 8.9 , Total Creatine Kinase 21 L Assessment/Plan 1. Seizure: Patient had a seizure at home. This is her first reported seizure and has no history. Patient did not bite her tongue or vomits. Denies loss of bowel or bladder. No deficits, except for those from hemorrhagic stroke. Neurology was consulted. Dr. Barnett sun the patient's. Per his recommendations starting patient on Keppra 750 mg twice a day. Patient will remain on this likely for life. An EEG will be ordered for Saturday. Appreciate assistance of Dr. Barnett in care of this patient. 2. HTN/ hypertensive urgency Patient has a history of hypertension. On arrival to ER BP was 226/97. Given multiple doses of hydralazine. Goal is to lower blood pressure gradual to systolic of 180. Continue Lisinopril 5 mg daily with hold parameters to hold if systolic <180. Monitor vitals. 3. Hemorrhagic stroke Patient has recent history of hemorrhagic stroke. Neuro checks every 4 hours. 4. CKD stage 3 Cr 1.03, around baseline. Repeat lab. Monitor for now. 5. Hypothyroidism Continue home medication. 6. Iron def anemia Hgb 9.8 today. Repeat CBC in morning. Continue iron supplement oral intake. DVT prophylaxis: Teds and sequentials. Plan / VTE VTE Prophylaxis Ordered?: Yes (Teds and sequentials) GME ATTESTATION GME ATTESTATION My preceptor for this patient encounter was physically present in the building during the encounter and was fully available. As needed, all aspects of the patient interview, examination, medical decision making process, and medical care plan development were reviewed and approved by the preceptor. Preceptor is aware and concurs with the plan as stated in the body of this note and will attest to such by his/her cosignature. JAVI JI DO Feb 02, 2017 20:18
[2017-02-02] MEDS: SIMVASTATIN 20 MG TAB PO SCH (20:41)
[2017-02-02] MEDS: CETIRIZINE (ZyrTEC) 10 MG TAB PO SCH (20:41)
[2017-02-02] MEDS: levETIRAcetam 250MG TABLET (KEPPRA) PO SCH (20:41)
[2017-02-03] VITALS: BP 125/59
[2017-02-03 04:00] VITALS: BP 145/64
[2017-02-03] MEDS: LEVOTHYROXINE 88MCG TABLET (0.088 MG) PO SCH (05:16)
[2017-02-03 05:17] LABS: MEAN CORPUSCULAR HEMOGLOBIN 29.5 pg (27.0-33.0); MEAN CORPUSCULAR HGB CONC 30.6 g/dl (32.0-36.5); MEAN CORPUSCULAR VOLUME 96.6 fl (80.0-96.0); PLATELET COUNT, AUTOMATED 237 10^3/uL (150-450); RED CELL DISTRIBUTION WIDTH 14.2 % (11.5-14.5); WHITE BLOOD COUNT 4.7 10^3/uL (4.0-10.0)
[2017-02-03 05:27] LABS: CALCIUM LEVEL 8.3 MG/DL (8.8-10.2); CREATININE FOR GFR 1.2 MG/DL (0.55-1.02); GLOMERULAR FILTRATION RATE 45.8 (>32); POTASSIUM SERUM 3.8 MEQ/L (3.5-5.1)
[2017-02-03 08:00] VITALS: BP 140/65
[2017-02-03] MEDS: levETIRAcetam 250MG TABLET (KEPPRA) PO SCH ×2 (08:25→20:45)
[2017-02-03] MEDS: FERROUS SULFATE 325MG TAB PO SCH (08:25)
[2017-02-03] MEDS: NYSTATIN CREAM 15 GM TOP SCH ×2 (08:25→20:45)
[2017-02-03] MEDS: PANTOPRAZOLE 20 MG TAB PO SCH (08:25)
[2017-02-03] MEDS: LISINOPRIL 5 MG TAB PO SCH (10:16)
[2017-02-03 12:00] VITALS: BP 145/70
--- NOTE | 2017-02-03 15:04 | ECGEPIP ---
Stationary ECG Study [facility] Test Date: 2017-02-03 Pat Name: LEONARDO ORELLANA Department: Room: [place] [address] Gender: F [employer]: : 1935 Requested By: ARAM Zarco Order Number: [id number] Reading MD: Aram Colindres Measurements Intervals [place] Rate: 60 P: 76 IA: 165 QRS: -4 QRSD: 130 T: 150 QT: 469 QTc: 472 Interpretive Statements SINUS RHYTHM WITH MARKED SINUS ARRHYTHMIA ANTEROSEPTAL MYOCARDIAL INFARCTION, PROBABLY RECENT No significant change compared with 12/22/2016. Electronically Signed On 02-03-2017 15:04:20 EDT by Aram Colindres
[2017-02-03 16:00] VITALS: BP 123/58
[2017-02-03 20:00] VITALS: BP 132/61
[2017-02-03] MEDS: SIMVASTATIN 20 MG TAB PO SCH (20:43)
[2017-02-03] MEDS: CETIRIZINE (ZyrTEC) 10 MG TAB PO SCH (20:43)
[2017-02-04] VITALS (9 sets, daily range): BP systolic 141–198; BP diastolic 59–88
[2017-02-04 05:22] LABS: MEAN CORPUSCULAR HEMOGLOBIN 29.6 pg (27.0-33.0); MEAN CORPUSCULAR HGB CONC 30.7 g/dl (32.0-36.5); MEAN CORPUSCULAR VOLUME 96.6 fl (80.0-96.0); PLATELET COUNT, AUTOMATED 231 10^3/uL (150-450); RED CELL DISTRIBUTION WIDTH 14.2 % (11.5-14.5); WHITE BLOOD COUNT 5.7 10^3/uL (4.0-10.0)
[2017-02-04 05:40] LABS: CALCIUM LEVEL 8.6 MG/DL (8.8-10.2); CREATININE FOR GFR 1.21 MG/DL (0.55-1.02); GLOMERULAR FILTRATION RATE 45.4 (>32); POTASSIUM SERUM 3.9 MEQ/L (3.5-5.1)
[2017-02-04] MEDS: LEVOTHYROXINE 88MCG TABLET (0.088 MG) PO SCH (06:36)
[2017-02-04] MEDS: LISINOPRIL 5 MG TAB PO SCH (07:59)
[2017-02-04] MEDS: PANTOPRAZOLE 20 MG TAB PO SCH (07:59)
[2017-02-04] MEDS: FERROUS SULFATE 325MG TAB PO SCH (07:59)
[2017-02-04] MEDS: NYSTATIN CREAM 15 GM TOP SCH ×2 (08:01→20:18)
[2017-02-04] MEDS: levETIRAcetam 250MG TABLET (KEPPRA) PO SCH ×2 (08:05→20:16)
--- NOTE | 2017-02-04 08:59 | CR ---
DATE OF CONSULTATION: 02/04/2017 REASON FOR CONSULTATION: Suspected seizure. HISTORY OF PRESENT ILLNESS: Onelia Campbell is an 81-year-old female who was recently found to have a right frontal intraparenchymal hemorrhage on 12/22/2016. The patient was found to have improvement of that and was in the rehabilitation center. The patient presents with a chief complaint of experiencing involuntary movements earlier today. She describes sitting at the table and noticing her left hand and fingers start to move and flex, followed by movement traveling up her left arm, then involving her left leg, head, as well as then moving over towards the right side. She states she has a clear recollection of the event, but states she could not speak during the event. The patient came out of the event with confusion only for a few seconds, followed by ability to recollect who she is, where she is and what happened. In the emergency department, head CT was obtained which revealed an old prior resolving left frontal intraparenchymal hemorrhage. Studies have shown that the size of the hemorrhage has improved and there is no new hemorrhage. The patient was loaded with Keppra in the emergency department and will be maintained on Keppra 750 mg twice day with plans for an EEG. She denies any other focal deficits at this time. She denies any dysarthria, aphasia. She denies any numbness, tingling or weakness other than baseline left lower extremity weakness. PAST MEDICAL HISTORY: 1. Hypertension. 2. Hypothyroidism. 3. Hyperlipidemia. 4. Chronic kidney disease. 5. Iron-deficiency anemia. 6. Lower extremity edema. 7. Urticaria. SOCIAL HISTORY: The patient lives with her . Denies the use of tobacco or illicit drugs or alcohol. MEDICATIONS: - Tylenol - Dulcolax - Colace - lisinopril 5 mg - Synthroid 88 mcg - pantoprazole - simvastatin - tramadol as needed pain ALLERGIES: AMOXICILLIN, CHOCOLATE. The patient recently had change in blood pressure medication and had her hydralazine discontinued due to difficulty in administering it four times a day. The patient was then placed on lisinopril 5 mg. She presented with systolic blood pressures greater than 240. Blood pressure is being managed and gradually being reduced appropriately. REVIEW OF SYSTEMS: 14-point review of systems obtained and is negative except as per history of present illness. PHYSICAL EXAMINATION: Blood pressure is 180/80, pulse rate 76, respiratory rate is 18, temperature is 97.2 degrees Fahrenheit, oxygenation 96% on room air. Current height is 4 feet 11 inches. Current weight is 72 kg. The patient is awake, alert, oriented to person, place and time. Speech, language, comprehension, repetition are intact. Pupils are to 2.5 mm round, reactive to light. Extraocular movements are intact. No facial asymmetry with activation. Palate elevates symmetrically. Tongue is midline. The patient has minimal left upper extremity pronator drift. The patient demonstrates minimal weakness in the left biceps and left triceps, her iliopsoas bilaterally are 4+, otherwise the patient has 5/5 strength with 4+ strength in left tibialis anterior. Gait deferred. Coordination: Normal [id number] without any signs of ataxia, dysmetria. Sensory is intact to light touch in all four extremities. ASSESSMENT 1. 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 2. Resolving right frontal intraparenchymal hemorrhage. 3. Hypertensive emergency. PLAN: 1. Gradually reduce blood pressure to goal of systolic blood pressure 140 on the left. Followup parameters to gradually reduce this over a 23 hour period. 2. Start Keppra 750 mg by mouth twice a day. 3. Obtain an EEG. 4. Recommend physical therapy (PT) and occupational therapy (OT) evaluation. 5. Recommend market analysis director to rule out any cardiac events.
[2017-02-04] MEDS ORDERED: amLODIPine 5 MG TAB PO SCH (09:00)
[2017-02-04] MEDS: amLODIPine 5 MG TAB PO SCH (16:50)
[2017-02-04] MEDS ORDERED: CHLORTHALIDONE 12.5MG PER 1/2 TABLET PO ONE (18:00)
[2017-02-04] MEDS: CETIRIZINE (ZyrTEC) 10 MG TAB PO SCH (20:17)
[2017-02-04] MEDS: SIMVASTATIN 20 MG TAB PO SCH (20:17)
--- NOTE | 2017-02-04 20:35 | IPN ---
DATE: 02/03/2017 Ms. Campbell is feeling well today. She has no complaints of pain. No further seizure-like activity. No loss of consciousness. Temperature 97.2, pulse 59, respiratory rate 18, blood pressure 140/65, 97% on room air. Input and output notable for a positive fluid balance of 350. He is awake, appropriately interactive, pleasantly conversant. No acute distress. Mucous membranes are moist. Neck is supple. Breathing is symmetrical and rested. Heart is distant sounding. White cell count 4.7, hemoglobin 8.8, platelets 237, BUN 28, creatinine 1.2. EKG shows sinus arrhythmia. ASSESSMENT: This is an 82-year-old with likely focal seizure. PLAN: 1. Neurologic. The patient had a seizure, which appears to be focal. Was seen by Dr. Barnett and he and I have discussed this case in person. She is on Keppra. EEG will be done tomorrow, likely can be discharged after the EEG, depending on the clinical course. This is all in the setting of recent hemorrhagic stroke. She has signs of improvement on CT scan. 2. The patient presented with hypertensive urgency, which is most likely a response to the stroke. I will continue with Lisinopril. I have adjusted the hold parameters. 3. The patient has chronic kidney disease stage 3. Creatinine has elevated slightly. We will continue her [id number] (TANA) inhibitor and monitor her laboratories. 4. The patient has hypothyroidism. 5. The patient has iron deficiency anemia. 6. Deep vein thrombosis (DVT) prophylaxis. Mechanical.
[2017-02-05] VITALS (7 sets, daily range): BP systolic 125–147; BP diastolic 58–72
[2017-02-05 05:36] LABS: MEAN CORPUSCULAR HEMOGLOBIN 30.7 pg (27.0-33.0); MEAN CORPUSCULAR HGB CONC 31.7 g/dl (32.0-36.5); MEAN CORPUSCULAR VOLUME 96.9 fl (80.0-96.0); PLATELET COUNT, AUTOMATED 225 10^3/uL (150-450); RED CELL DISTRIBUTION WIDTH 13.9 % (11.5-14.5); WHITE BLOOD COUNT 5.7 10^3/uL (4.0-10.0)
[2017-02-05] MEDS: LEVOTHYROXINE 88MCG TABLET (0.088 MG) PO SCH (05:40)
[2017-02-05 06:00] LABS: CALCIUM LEVEL 8.4 MG/DL (8.8-10.2); CREATININE FOR GFR 1.1 MG/DL (0.55-1.02); GLOMERULAR FILTRATION RATE 50.6 (>32)
--- NOTE | 2017-02-05 06:52 | EEG ---
DATE OF PROCEDURE: 02/04/2017 REFERRING PHYSICIAN: Dr. Aram Cervantes DIAGNOSIS: Seizure. EEG NUMBER: [id number] HISTORY: Patient is an 82-year-old woman who was admitted at [facility] due to a partial seizure affecting the left upper extremity followed by generalized convulsion. This EEG was done to rule out epileptic potential. She is currently on Keppra, Zyrtec, simvastatin, etc.. TECHNICAL DISCUSSION: This digital EEG was recorded by 21 scalp, ear and two EKG electrodes and was reviewed in bipolar and referential montages following reformatting in 10-20 international electrode placement system. INTERPRETATION: The patient was noted to be in awake and drowsy states during this EEG. Resting awake background rhythm consisted of 7-8 Hertz theta activity. Stage I and II sleep were reviewed and were symmetric bilaterally. Hyperventilation could not be performed. Photic stimulation remained unremarkable. EKG revealed normal sinus rhythm. Right parietal and posterior temporal intermittent delta slowing was noted. No clear epileptiform abnormalities were seen. No clinical or electrographic seizures were recorded. CONCLUSION: This EEG in awake, drowsy states, stage I and II sleep is abnormal due to presence of mild generalized slowing and intermittent right parietal and posterior temporal delta slowing consistent with focal cortical structural or functional abnormality. In some patients with focal onset seizures, intermittent focal slowing may be the only epileptic abnormality. Clinical correlation is recommended.
[2017-02-05] MEDS: PANTOPRAZOLE 20 MG TAB PO SCH (08:08)
[2017-02-05] MEDS: levETIRAcetam 250MG TABLET (KEPPRA) PO SCH ×2 (08:08→20:14)
[2017-02-05] MEDS: CHLORTHALIDONE 12.5MG PER 1/2 TABLET PO SCH (08:08)
[2017-02-05] MEDS: FERROUS SULFATE 325MG TAB PO SCH (08:08)
[2017-02-05] MEDS: LISINOPRIL 5 MG TAB PO SCH (08:12)
[2017-02-05] MEDS: amLODIPine 5 MG TAB PO SCH ×2 (08:12→17:19)
[2017-02-05] MEDS: NYSTATIN CREAM 15 GM TOP SCH ×2 (08:15→20:15)
--- NOTE | 2017-02-05 11:34 | IPN ---
DATE: 02/04/2017 Ms. Campbell is feeling well today. She has no complaints of pain. No chest pain. No shortness of breath. Tolerating a diet. Is going for an electroencephalogram (EEG) this morning. No further seizure-like activity. Temperature 97.8. Pulse 67. Respiratory rate 19. Blood pressure 180/88. 95% on room air. Awake, appropriately interactive. Pleasantly conversant. Breathing is symmetrical. Heart is in a regular rate and rhythm. Normal S1, S2. Abdomen soft, doughy, nontender. White cell count 5.7, hemoglobin 8.8 and platelets of 231. BUN 34 and creatinine 1.2. ASSESSMENT: This is an 82-year-old who was admitted with focal seizure and elevated blood pressure. PLAN: 1. Seizure. Patient is on Keppra. Will get an EEG today. Could possibly be discharged after this. 2. Patient has hypertension and presented with hypertensive urgency. Have added Norvasc. It would be reasonable to follow her on Norvasc and lisinopril as her blood pressure has been somewhat generous even manually. 3. Patient had recent hemorrhagic stroke. 4. Patient has chronic kidney disease Stage 3 and is close to her baseline. Will follow her creatinine tomorrow. 5. Patient has hypothyroidism. 6. Patient has iron deficiency anemia. Hemoglobin/hematocrit (H/H) is stable from yesterday.
[2017-02-05] MEDS ORDERED: CHLO125TA PO (16:02)
[2017-02-05] MEDS ORDERED: AMLO5TAB2 PO (16:02)
[2017-02-05] MEDS ORDERED: KEPP250T5 PO (16:02)
[2017-02-05] MEDS: CETIRIZINE (ZyrTEC) 10 MG TAB PO SCH (20:15)
[2017-02-05] MEDS: SIMVASTATIN 20 MG TAB PO SCH (20:15)
[2017-02-05] MEDS ORDERED: ACETAMINOPHEN TAB 650MG DOSE (2X325MG) PO ONE (23:15)
--- NOTE | 2017-02-05 23:16 | IPN ---
DATE: 02/05/2017 Ms. Capmbell is feeling well this morning. She has no complaints of pain, chest pain, shortness of breath. Tolerating diet. No further seizure activity. Temperature is 96, pulse 73, respiratory rate 18, blood pressure 125/69, 60% on room air. Intake and output (I and Os) notable for negative fluid balance of -180. Weight 73.7 kg with a body mass index of 32.8. She is awake and appropriately interactive. Pleasantly conversant. Breathing is symmetrical. Heart is distant sounding. Normal S1, S2. Abdomen is soft, doughy, nontender. White cell count 5.7, hemoglobin 8.8, platelets 225, BUN 34, creatinine 1.1. EEG could possibly be consistent with focal seizure. ASSESSMENT: This is an 82-year-old who was admitted with focal seizure and elevated blood pressure. PLAN: 1. Seizure. EEG could be consistent with focal seizure. Is on Keppra which will be continued. The patient will need ongoing seizure precautions at home. 2. The patient has elevated blood pressure. I have discussed this case by phone with the hypertensive specialist and have started a new medical regimen. The plan is to followup with Dr. Colindres as an outpatient. I did discuss this with the at bedside yesterday. 3. The patient has a recent hemorrhagic stroke. During her stay her CT scan has shown improvement from December. 4. The patient has chronic kidney disease, stage III. Creatinine is likely at her baseline. 5. The patient has iron deficiency anemia. 6. I did discuss this case by phone with patient's primary care provider, Dr. Sabra Doty.
[2017-02-06 04:07] VITALS: BP 140/64
[2017-02-06 05:20] LABS: MEAN CORPUSCULAR HEMOGLOBIN 29.8 pg (27.0-33.0); MEAN CORPUSCULAR HGB CONC 30.9 g/dl (32.0-36.5); MEAN CORPUSCULAR VOLUME 96.4 fl (80.0-96.0); PLATELET COUNT, AUTOMATED 234 10^3/uL (150-450); RED CELL DISTRIBUTION WIDTH 13.8 % (11.5-14.5); WHITE BLOOD COUNT 5.4 10^3/uL (4.0-10.0)
[2017-02-06 05:35] LABS: CALCIUM LEVEL 8.2 MG/DL (8.8-10.2); CREATININE FOR GFR 1.14 MG/DL (0.55-1.02); GLOMERULAR FILTRATION RATE 48.6 (>32); POTASSIUM SERUM 3.9 MEQ/L (3.5-5.1)
[2017-02-06] MEDS: LEVOTHYROXINE 88MCG TABLET (0.088 MG) PO SCH (05:39)
[2017-02-06 08:00] VITALS: BP 130/68
[2017-02-06] MEDS: PANTOPRAZOLE 20 MG TAB PO SCH (09:35)
[2017-02-06] MEDS: levETIRAcetam 250MG TABLET (KEPPRA) PO SCH (09:35)
[2017-02-06] MEDS: FERROUS SULFATE 325MG TAB PO SCH (09:35)
[2017-02-06] MEDS: LISINOPRIL 5 MG TAB PO SCH (09:35)
[2017-02-06] MEDS: CHLORTHALIDONE 12.5MG PER 1/2 TABLET PO SCH (09:35)
[2017-02-06 09:36] VITALS: BP 130/68
[2017-02-06] MEDS: amLODIPine 5 MG TAB PO SCH (09:36)
[2017-02-06] MEDS: NYSTATIN CREAM 15 GM TOP SCH (09:38)
--- NOTE | 2017-02-06 13:39 | DSES ---
DATE OF ADMISSION: 02/02/2017 DATE OF DISCHARGE: The patient was admitted on 02/02/2017 and planned for discharge 02/06/2017. SPECIALISTS INVOLVED IN CARE: Dr. Barnett. COMPLICATIONS OF STAY: None. PROCEDURES PERFORMED DURING STAY: None. DISCHARGE DIAGNOSES: 1. 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 2. Resolving right frontal intraparenchymal hemorrhage. 3. Hypertensive urgency. 4. Chronic kidney disease Stage III. 5. Hypothyroidism. 6. Iron deficiency anemia. SUMMARY OF PRESENTATION: This is an 82-year-old who presented with episode consistent with focal onset seizure who was found to have elevated blood pressure which was thought secondary to the seizure itself who had recently had her blood pressure medications changed. She does check her blood pressure at home. She was admitted to the hospitalist service and was seen in consultation by Dr. Barnett. She underwent CT of the brain that showed resolving intraparenchymal hemorrhage from last months admission. No further seizure activity during this stay. She was started and maintained on Keppra. She had an EEG which may or may not be consistent with seizure disorder. Blood pressure was elevated. The case was discussed in general with a hypertensive specialist. The patient was continued on home dose of lisinopril. Norvasc was added as well as a low dose of chlorthalidone. She was doing well. On the day prior to discharge, the family requested another evening of monitoring which I believe is not unreasonable given her previous medical history. DISCHARGE INSTRUCTIONS: Followup with Dr. Doty within one week, Dr. Barnett within three weeks and Dr. Colindres within two weeks. Activity as tolerated. Seizure precautions. Diet as tolerated. Medications will include: - amlodipine 5 mg by mouth twice daily - chlorthalidone 12.5 mg by mouth daily - Keppra 750 mg by mouth twice daily - Zyrtec 10 mg by mouth daily - ferrous sulfate 325 mg by mouth daily - Synthroid 88 mcg by mouth every morning - lisinopril 5 mg by mouth daily - Nystatin cream behind the ears - Protonix 20 mg by mouth daily - simvastatin 20 mg by mouth daily at bedtime I have asked her to stop taking her potassium chloride supplement. I have suggested taking her blood pressure at the same time twice daily, recording it, and taking it to her visit with her blood pressure specialist.
--- NOTE | 2017-02-07 10:04 | DSES ---
DATE OF ADMISSION: 02/02/2017 DATE OF DISCHARGE: 02/06/2017 DISCHARGE DIAGNOSIS: Seizure. SECONDARY DIAGNOSES: 1. Hypertension. 2. Recent hemorrhagic CVA. 3. Chronic kidney disease. 4. Iron deficiency anemia. HOSPITAL COURSE: The patient is an 82-year-old female who was admitted with focal seizure and elevated blood pressure. She was seen in consultation by neurology, who started the patient on Keppra. The case was also discussed with Dr. Colindres of cardiology. All providers involved did not feel as though the patient's hypertension was the etiology of the seizure but rather it was more likely related to her recent intracranial hemorrhage and thought that her hypertension was either secondary to her seizure. Her medications were adjusted. Her blood pressure was controlled. No further seizure activity was noted during her stay. She did have an EEG, which revealed generalized intermittent slowing of the right parietal and posterior temporal consistent with focal cortical structural or functional abnormality. The patient also did have a CT scan of the head, which revealed resolving right frontal lobe parenchymal hematoma. SUBJECTIVE: At this point, the patient tells me that she feels well. She has no specific complaints. OBJECTIVE: VITAL SIGNS: Temperature 96.3, pulse 55, respiratory rate 18, blood pressure 130/60, oxygen saturation 97% on room air. GENERAL: She is a pleasant, frail, elderly, female lying flat in bed. She does have some residual facial droop. She has moist mucous membranes. No elevation in central venous pressure (CVP). CARDIOVASCULAR EXAM: S1, S2 regular. RESPIRATORY EXAM: Clear. ABDOMINAL EXAM: Benign. EXTREMITIES: No clubbing, cyanosis or edema. LABORATORY STUDIES: WBC 5.4, hemoglobin 9.0, platelet count 234. Chemistry panel: Sodium 144, potassium 3.9, chloride 111, bicarbonate 26, BUN 38, creatinine 1.1. Imaging: As outlined above. ASSESSMENT AND PLAN: 1. Seizure, June. EEG consistent with focal seizure. The patient is on Keppra 750 mg by mouth twice a day as per neurology. She will followup with neurology regarding her seizure, it is likely related to her recent CVA and intracranial hemorrhage. 2. Hypertension. The patient was discussed with a hypertensive specialist. The patient will followup with Dr. Jean in the outpatient setting. Her medication regimen has been adjusted and simplified. Her blood pressure is well controlled at this time. 3. Recent intracranial hemorrhage with CVA, stable findings, appears to be resolving, as outlined above. The patient is on aspirin. She is on statin and blood pressure control. 4. Chronic kidney disease, stable at baseline. 5. Iron deficiency anemia. The patient is on supplementation. 6. Hypothyroidism. The patient is on Synthroid. DISPOSITION: The patient is being discharged home to the care of her . She is at her functional baseline she has been since her CVA. She is to followup with her primary care provider within 1 week. Primary care provider was contacted directly by Dr. Cervantes yesterday. She is to followup with neurology within [address] Colindres within 2 weeks. Her activity is as tolerated. Seizure precautions. Diet as tolerated. DISCHARGE MEDICATIONS: - morphine 5 mg twice a day - chlorthalidone 12.5 mg daily - Keppra 750 mg twice a day - Zyrtec 10 mg at night - ferrous sulfate 325 mg at lunchtime - Synthroid 88 mcg every morning - Lisinopril 5 mg daily - Nystatin topically twice a day as needed behind the ears - metoprolol 20 mg daily - simvastatin 20 mg at night Greater than 30 minutes was spent organizing disposition. She is being discharged with home health services. CHELITA
== END 2017-02-06 12:35 | disposition home health service (06) | DRG 57 ==
LOC: EDBD 10:12 → M ED 10:12 → M ED INP 12:52 → M PCU 15:02
PROVIDERS: ADMIT Internal Medicine; ATTEND Internal Medicine
DX: I69.898 Other sequelae of other cerebrovascular disease (principal); G40.109 Localization-related (focal) (partial) symptomatic epilepsy and epileptic syndromes with simple partial seizures, not intractable, without status epilepticus; I16.0 Hypertensive urgency; I12.9 Hypertensive chronic kidney disease with stage 1 through stage 4 chronic kidney disease, or unspecified chronic kidney disease; E03.9 Hypothyroidism, unspecified; E78.5 Hyperlipidemia, unspecified; N18.3 Chronic kidney disease, stage 3 (moderate); Z88.1 Allergy status to other antibiotic agents; Z91.018 Allergy to other foods; Z79.899 Other long term (current) drug therapy

== ENCOUNTER → 2017-04-02 | Outpatient (REF) | payer MEDICARE ==
[~2017-04-02] MED LIST changes: +AMLO5TAB2 PO; +CHLO125TA PO; +KEPP250T5 PO; +LISI-542 PO; +NYST10CR TOP; +PANT20TA PO; +ZOCO20TA PO; +ZYRT10CA PO; +ZYRT10TA2 PO
== END ==
LOC: M LAB REF 16:51
PROVIDERS: ATTEND Family Medicine
DX: L03.90 Cellulitis, unspecified (principal)

== ENCOUNTER → 2017-04-09 | Outpatient (CLI) | payer MEDICARE ==
[2017-04-09 10:18] LABS: EOS # 0.3 10^3/uL (0.0-0.50); EOS % 7.7 % (0.0-3.0); HEMATOCRIT 33.9 % (36.0-47.0); HEMOGLOBIN 10.8 g/dl (12.0-16.0); IMMATURE GRANULOCYTE % 0.3 % (0-0); LYMPH # 1.1 10^3/uL (1.5-4.5); LYMPH % 27.8 % (24.0-44.0); MEAN CORPUSCULAR HEMOGLOBIN 29.8 pg (27.0-33.0); MEAN CORPUSCULAR HGB CONC 31.9 g/dl (32.0-36.5); MEAN CORPUSCULAR VOLUME 93.4 fl (80.0-96.0); MONO # 0.4 10^3/uL (0.0-0.8); MONO % 9.9 % (0.0-5.0); NEUTROPHILS # 2.1 10^3/uL (1.8-7.7); NEUTROPHILS % 53.3 % (36.0-66.0); PLATELET COUNT, AUTOMATED 265 10^3/uL (150-450); RED BLOOD COUNT 3.63 10^6/uL (4.00-5.40); RED CELL DISTRIBUTION WIDTH 13.4 % (11.5-14.5); WHITE BLOOD COUNT 3.9 10^3/uL (4.0-10.0)
[2017-04-09 10:40] LABS: VITAMIN B12 LEVEL 1656 PG/ML (247-911)
[2017-04-09 10:44] LABS: ANION GAP 8 MEQ/L (8-16); BLOOD UREA NITROGEN 37 MG/DL (7-18); CARBON DIOXIDE LEVEL 26 MEQ/L (21-32); CHLORIDE LEVEL 110 MEQ/L (98-107); CHOLESTEROL LEVEL 242 MG/DL (<200); CREATININE FOR GFR 1.39 MG/DL (0.55-1.02); FERRITIN 285 NG/ML (8-252); FREE T4 1.32 NG/DL (0.76-1.46); GLOMERULAR FILTRATION RATE 38.6 (>32); GLUCOSE, FASTING 86 MG/DL (83-110); HDL CHOLESTEROL 74 MG/DL (>40); IRON (FE) 70 UG/DL (50-170); LDL CHOLESTEROL 143.4 MG/DL (<100); NON-HDL-C 168 MG/DL; PERCENT SATURATION 24.6 % (13.2-45.0); POTASSIUM SERUM 4.2 MEQ/L (3.5-5.1); SODIUM LEVEL 144 MEQ/L (136-145); TOTAL IRON BINDING CAPACITY 284 UG/DL (250-450); TRIGLYCERIDES LEVEL 123 MG/DL (<150)
== END ==
LOC: M RAD 08:47
DX: D51.9 Vitamin B12 deficiency anemia, unspecified (principal); N18.3 Chronic kidney disease, stage 3 (moderate); E78.5 Hyperlipidemia, unspecified; I67.82 Cerebral ischemia; G31.9 Degenerative disease of nervous system, unspecified
CPT/HCPCS: 70551

== ENCOUNTER → 2017-06-18 | Outpatient (CLI) | payer MEDICARE ==
[2017-06-18 14:34] LABS: BASO # 0.1 10^3/uL (0.0-0.2); BASO % 1.6 % (0.0-1.0); EOS # 0.3 10^3/uL (0.0-0.50); EOS % 6.6 % (0.0-3.0); HEMATOCRIT 33.8 % (36.0-47.0); HEMOGLOBIN 10.9 g/dl (12.0-16.0); LYMPH # 1.2 10^3/uL (1.5-4.5); LYMPH % 28.4 % (24.0-44.0); MEAN CORPUSCULAR HEMOGLOBIN 30.2 pg (27.0-33.0); MEAN CORPUSCULAR HGB CONC 32.2 g/dl (32.0-36.5); MEAN CORPUSCULAR VOLUME 93.6 fl (80.0-96.0); MONO # 0.5 10^3/uL (0.0-0.8); MONO % 12.2 % (0.0-5.0); NEUTROPHILS # 2.2 10^3/uL (1.8-7.7); NEUTROPHILS % 51.2 % (36.0-66.0); PLATELET COUNT, AUTOMATED 254 10^3/uL (150-450); RED BLOOD COUNT 3.61 10^6/uL (4.00-5.40); RED CELL DISTRIBUTION WIDTH 13.7 % (11.5-14.5); WHITE BLOOD COUNT 4.3 10^3/uL (4.0-10.0)
[2017-06-18 15:10] LABS: ALBUMIN 3.7 GM/DL (3.2-5.2); ALBUMIN/GLOBULIN RATIO 1.23 (1.00-1.93); ALKALINE PHOSPHATASE 81 U/L (45-117); ALT/SGPT 16 U/L (12-78); ANION GAP 9 MEQ/L (8-16); AST/SGOT 20 U/L (7-37); BILIRUBIN,TOTAL 0.9 MG/DL (0.2-1.0); BLOOD UREA NITROGEN 40 MG/DL (7-18); CALCIUM LEVEL 8.6 MG/DL (8.8-10.2); CARBON DIOXIDE LEVEL 26 MEQ/L (21-32); CHLORIDE LEVEL 106 MEQ/L (98-107); CREATININE FOR GFR 1.38 MG/DL (0.55-1.30); FREE T4 1.29 NG/DL (0.76-1.46); GLUCOSE, FASTING 80 MG/DL (70-100); POTASSIUM SERUM 4.6 MEQ/L (3.5-5.1); SODIUM LEVEL 141 MEQ/L (136-145); THYROID STIMULATING HORMONE 0.971 uIU/ML (0.358-3.740); TOTAL PROTEIN 6.7 GM/DL (6.4-8.2)
[2017-06-18 16:34] LABS: FERRITIN 283 NG/ML (8-252); IRON (FE) 101 UG/DL (50-170); PERCENT SATURATION 36.2 % (13.2-45.0); TOTAL IRON BINDING CAPACITY 279 UG/DL (250-450)
[2017-06-18 16:59] LABS: VITAMIN B12 LEVEL 373 PG/ML
[2017-06-18 17:00] LABS: FOLATE 13.9 NG/ML
== END ==
LOC: M LAB 13:42
DX: N18.3 Chronic kidney disease, stage 3 (moderate) (principal); D63.8 Anemia in other chronic diseases classified elsewhere; E03.9 Hypothyroidism, unspecified; R53.83 Other fatigue
CPT/HCPCS: 82746